=== PATIENT | male | born 1945 | race Caucasian/White ===

== ENCOUNTER 2018-03-25 19:56 | Inpatient (IN) | payer MEDICARE ==
--- NOTE | 2018-03-25 20:47 | ED Physician Chart ---
ED Chief Complaint/HPI - Patient Information Date Seen:: 03/25/18 Time Seen:: 20:46 Chief Complaint:: Increased agitation History of Present Illness:: 73 yo male was brought from SNF to ER for evaluation of increased agitation and aggressive behavior. Patient has wheezing for unknown duration. ED Review of Systems - Review of Systems General/Constitutional: No fever Skin: No skin lesions Head: No headache Eyes: No pain ENT: No nasal drainage Neck: No neck pain Cardio Vascular: No chest pain Pulmonary: Wheezing GI: No nausea, No vomiting Musculoskeletal: No bone or joint pain Psychiatric: Prior psych history Neurological: No focal symptoms ED Past Medical History - Past Medical History Past Medical History: DM, Asthma/COPD Social History: Smoker, No Alcohol, No Drug Use Surgical History: None Psychiatricy History: Schizophrenia (paranoid type), Bipolar Family Medical History - Family Member Mother History Unknown: Yes ED Physical Exam - Physical Examination General/Constitutional: Awake Head: Atraumatic Eyes: PERRL Skin: No skin lesions ENMT: Nasal exam nl Neck: No nuchal rigidity Other Respiratory comments:: Mild wheeze bilateral lungs Cardio Vascular: RRR, No murmur, gallop, rubs, NL S1 S2 GI: No tenderness/rebounding/guarding Extremities: normal strength in all extremities Neuro/Psych: Alert/oriented ED Labs/Radiology/EKG Results - Lab Results Results: Laboratory Last Values WBC 6.6 Th/cmm (4.8-10.8) 03/25/18 21: RBC 4.74 Mil/cmm (3.80-5.80) 03/25/18 21: Hgb 14.4 gm/dL (12-16) 03/25/18 21: Hct 43.7 % (41.0-60) 03/25/18 21:01 MCV 92.0 fl (80-99) 03/25/18 21: MCH 30.3 pg (27.0-31.0) 03/25/18 21: MCHC Differential 33.0 pg (28.0-36.0) 03/25/18 21: RDW 13.9 % (11.5-20.0) 03/25/18 21: Plt Count 183 Th/cmm (150-400) 03/25/18 21:01 MPV 8.6 fl 03/25/18 21:01 Neutrophils % 41.8 % (40.0-80.0) 03/25/18 21:01 Lymphocytes % 42.3 % (20.0-50.0) 03/25/18 21: Monocytes % 10.4 % (2.0-10.0) H 03/25/18 21: Eosinophils % 4.8 % (0.0-5.0) 03/25/18 21: Basophils % 0.7 % (0.0-2.0) 03/25/18 21:01 Sodium 138 mEq/L (136-145) 03/25/18 21:01 Potassium 4.2 mEq/L (3.5-5.1) 03/25/18 21: Chloride 100 mEq/L (98-107) 03/25/18 21:01 Carbon Dioxide 32.4 mEq/L (21.0-31.0) H 03/25/18 21:01 Anion Gap 9.8 (7.0-16.0) 03/25/18 21:01 BUN 17 mg/dL (7-25) 03/25/18 21:01 Creatinine 0.8 mg/dL (0.7-1.3) 03/25/18 21:01 Est GFR ( Amer) TNP 03/25/18 21:01 Est GFR (Non-Af Amer) TNP 03/25/18 21:01 BUN/Creatinine Ratio 21.3 03/25/18 21:01 Glucose 120 mg/dL (70-105) H 03/25/18 21:01 Calcium 9.1 mg/dL (8.6-10.3) 03/25/18 21:01 Total Bilirubin 0.3 mg/dL (0.3-1.0) 03/25/18 21:01 AST 15 U/L (13-39) 03/25/18 21:01 ALT 7 U/L (7-52) 03/25/18 21:01 Alkaline Phosphatase 224 U/L (34-104) H 03/25/18 21:01 Troponin I < 0.01 ng/mL (0.01-0.05) L 03/25/18 21:01 B-Natriuretic Peptide 6.4 pg/mL (5.0-100.0) 03/25/18 21:01 Total Protein 6.7 gm/dL (6.0-8.3) 03/25/18 21: Albumin 3.9 gm/dL (4.2-5.5) L 03/25/18 21: Globulin 2.8 gm/dL 03/25/18 21:01 Albumin/Globulin Ratio 1.4 (1.0-1.8) 03/25/18 21:01 Triglycerides 295 mg/dL (<150) H 03/25/18 21:01 Cholesterol 200 mg/dL (<200) 03/25/18 21:01 LDL Cholesterol Direct 146 mg/dL (75-193) 03/25/18 21: HDL Cholesterol 39 mg/dL (23-92) 03/25/18 21: TSH 2.10 uIU/ml (0.34-5.60) 03/25/18 21:01 - Radiology Results Results: CXR: mild increase of bibasilar lung markings, chronic ED Assessment - Assessment General Assessment: Hypertension Asthma Bipolar Schizophrenia Psychosis Assessment/Comments:: CBC, CMP, UA CXR, EKG DuoNeb Admit to [facility] for further evaluation and management ED Septic Shock - . Is Septic Shock (SBP<90, OR Lactate>4 mmol\L) present?: No ED Reassessment (Disposition) - Reassessment Reassessment Condition:: Improved - Patient Disposition Discharge/Transfer:: [facility] w/in this hosp
[2018-03-25 21:10] LABS: % BASOPHILS 0.7 % (0.0-2.0); % EOSINOPHILS 4.8 % (0.0-5.0); % LYMPHOCYTES 42.3 % (20.0-50.0); % MONOCYTES 10.4 % (2.0-10.0); % NEUTROPHILS 41.8 % (40.0-80.0); EOSINOPHILE ABSOLUTE 0.3 Th/cmm (0.1-0.4); HEMATOCRIT 43.7 % (41.0-60); HEMOGLOBIN 14.4 gm/dL (12-16); LYMPHOCYTE ABSOLUTE 2.8 Th/cmm (1.5-3.0); MEAN CORPUSCULAR HEMOGLOBIN 30.3 pg (27.0-31.0); MEAN PLATELET VOLUME 8.6 fl; MONOCYTE ABSOLUTE 0.7 Th/cmm (0.3-1.0); NEUTROPHILE ABSOLUTE 2.8 Th/cmm (1.8-8.0); PLATELET COUNT 183 Th/cmm (150-400); RED BLOOD COUNT 4.74 Mil/cmm (3.80-5.80); RED CELL DISTRIBUTION WIDTH 13.9 % (11.5-20.0); WHITE BLOOD COUNT 6.6 Th/cmm (4.8-10.8)
[2018-03-25 21:28] LABS: ALB/GLOB RATIO 1.4 (1.0-1.8); ALBUMIN 3.9 gm/dL (4.2-5.5); ALKALINE PHOSPHATASE 224 U/L (34-104); ANION GAP 9.8 (7.0-16.0); BILIRUBIN,TOTAL 0.3 mg/dL (0.3-1.0); BUN - UREA NITROGEN 17 mg/dL (7-25); CALCIUM SERUM 9.1 mg/dL (8.6-10.3); CARBON DIOXIDE 32.4 mEq/L (21.0-31.0); CHLORIDE 100 mEq/L (98-107); CHOLESTEROL 200 mg/dL (<200); CREATININE - SERUM 0.8 mg/dL (0.7-1.3); GLUCOSE 120 mg/dL (70-105); HDL -HIGH DENSITY LIPOPROTEIN 39 mg/dL (23-92); POTASSIUM SERUM 4.2 mEq/L (3.5-5.1); SGOT 15 U/L (13-39); SGPT/ALT 7 U/L (7-52); SODIUM SERUM 138 mEq/L (136-145); TOTAL PROTEIN,SERUM 6.7 gm/dL (6.0-8.3); TRIGLYCERIDES 295 mg/dL (<150)
[2018-03-25] MEDS ORDERED: Albuterol/Ipratropium Neb 3 ML AERS HHN ONE ×2 (21:47→21:59)
[2018-03-25 23:29] LABS: URINE SOURCE MIDSTREAM
[2018-03-25 23:38] LABS: URINE BILIRUBIN NEGATIVE (NEGATIVE); URINE BLOOD NEGATIVE (NEGATIVE); URINE GLUCOSE (UA) NEGATIVE (NEGATIVE); URINE KETONE NEGATIVE (NEGATIVE); URINE LEUKOCYTE ESTERASE NEGATIVE (NEGATIVE); URINE NITRATE NEGATIVE (NEGATIVE); URINE PROTEIN NEGATIVE (NEGATIVE); URINE UROBILINOGEN 0.2 E.U./dL (0.2 - 1.0)
[2018-03-25 23:50] LABS: URINE CLARITY CLEAR (CLEAR); URINE COLOR YELLOW; URINE MICROSCOPIC INDICATED? NO
[2018-03-26 00:27] VITALS: BP 149/91
[2018-03-26] MEDS ORDERED: Magnesium Hydroxide (MOM) 30 mL UDC PO PRN (00:27)
[2018-03-26 01:39] LABS: CHOLESTEROL 203 mg/dL (<200); HDL -HIGH DENSITY LIPOPROTEIN 42 mg/dL (23-92); TRIGLYCERIDES 291 mg/dL (<150)
[2018-03-26] MEDS: Multivitamin Tab PO SCH (08:46)
--- NOTE | 2018-03-26 08:50 | Diagnostic Imaging Report ---
CHEST X-RAY: AP view INDICATION: Shortness of breath COMPARISON: None FINDINGS: There is no focal consolidation or pleural effusions. Mild increased bibasal interstitial lung markings are noted. Heart size is normal. There is atherosclerosis of the aortic arch. Degenerative changes of the spine are noted. IMPRESSION: Mild increased bibasilar interstitial lung markings. These are probably due to atelectatic changes or chronic changes. No focal consolidation identified. There may be underlying COPD. Atherosclerosis of the aortic arch noted.
[2018-03-26] MEDS: Albuterol Nebulizer 2.5mg/3mL HHN PRN (21:07)
[2018-03-26] MEDS: Maalox 30 mL Cup PO PRN (22:48)
[2018-03-26] MEDS: Albuterol Nebulizer 2.5mg/3mL HHN SCH (23:33)
[2018-03-27] MEDS: Albuterol Nebulizer 2.5mg/3mL HHN SCH ×6 (02:00→22:00)
--- NOTE | 2018-03-27 05:33 | Psychiatric Evaluation ---
DATE OF SERVICE: 03/25/2018 PSYCHIATRIC INITIAL EVALUATION AND MENTAL STATUS EXAM PATIENT'S AGE: 73-year-old. SEX: Male. PHYSICIAN: Dr. Jones. CHIEF COMPLAINT: Agitation and confusion. HISTORY OF PRESENT ILLNESS: The patient is a 73-year-old male who was [facility] because of increased agitation and because of confusion and difficulty following directions. The patient was in [facility] because the patient has been getting severely anxious easily. The patient also has been complaining of any little noise that has been bothering him. Even the patient is complaining of dripping of water and that was bothering him. PAST PSYCHIATRIC HISTORY: The patient has been taking Zyprexa but not effective. PAST MEDICAL HISTORY: The patient has history of COPD, epilepsy, diabetes mellitus type 2 and hypertension. ALLERGIES: HALDOL. MENTAL STATUS EXAMINATION: The patient appears his stated age. Currently cooperative. Anxious. Sad affect. In a depressed mood. Confused. Easily agitated. The patient denies any auditory or visual hallucinations, but seems to be delusional and paranoid. The patient denies any suicidal or homicidal ideations. The patient is alert and oriented to time, but not place or date or person. Impaired immediate memory but intact remote and recent memories. Poor insight and poor judgment. ASSESSMENT: PRIMARY DIAGNOSIS: Unspecified psychosis. SECONDARY DIAGNOSIS: Rule out mild dementia. TREATMENT PLAN: We will monitor the patient's behavior closely. We will start individual as well as milieu psychotherapy. We will also start the patient on Seroquel and Depakote and we will discontinue Zyprexa. ESTIMATED LENGTH OF STAY: 5-7 days. THE PATIENT'S STRENGTHS AND WEAKNESSES: The patient's strength is not clear at this time. Weaknesses are ineffective coping. AFTER DISCHARGE PLAN: Outpatient treatment and followup will continue as an outpatient. CRITERIA FOR DISCHARGE: The patient will not be suicidal and will stabilize psychotropic medications and will establish outpatient treatment plans. JOB# [id number]
[2018-03-27] MEDS: Multivitamin Tab PO SCH (09:25)
--- NOTE | 2018-03-27 21:06 | History & Physical ---
ADMIT DATE: 03/26/2018 CHIEF COMPLAINT: Agitation. HISTORY OF PRESENT ILLNESS: This is a 73-year-old male admitted to the [facility] due to agitation and aggressive behavior towards nursing staff at the alf. PAST MEDICAL HISTORY: Diabetes, asthma, COPD. SOCIAL HISTORY: The patient is a alf resident, requiring 24-hour nursing care. SURGICAL HISTORY: Unknown. ALLERGIES: CLONAZEPAM, HALOPERIDOL. MEDICATIONS: Please see medication list. REVIEW OF SYSTEMS: GENERAL: Denies any fevers or chills. CARDIOVASCULAR: Denies chest pain. RESPIRATORY: Denies shortness of breath. GASTROINTESTINAL: Denies nausea, vomiting, abdominal pain. GENITOURINARY: Denies increased frequency or dysuria. NEUROLOGIC: No headache, seizures or syncope. All systems are reviewed and negative. PHYSICAL EXAMINATION: GENERAL: The patient is well-developed, well-nourished, no apparent distress. VITAL SIGNS: Temperature 98.2, heart rate 108, blood pressure 126/95, respiration 18, O2 90-96%. HEAD: Normocephalic, atraumatic. NECK: Supple. No mass. LUNGS: Clear bilaterally. HEART: Regular rhythm. ABDOMEN: Soft, nontender. LABORATORY DATA: WBC 6.6, H and H 14.4 and 43.7, platelet 183. Sodium 138, potassium 4.2, chloride 100, BUN 17, creatinine 0.8. ASSESSMENT: Diabetes, asthma, chronic obstructive pulmonary disease, aggressive behavior, schizophrenia, bipolar. PLAN: Supplemental oxygen as needed. Monitor glucose. Monitor signs and symptoms of hypo or hyperglycemia. We will continue to monitor this patient. JOB# [id number]
[2018-03-27] MEDS: Albuterol Nebulizer 2.5mg/3mL HHN PRN (22:25)
[2018-03-28] MEDS: Albuterol Nebulizer 2.5mg/3mL HHN SCH ×6 (03:15→21:59)
[2018-03-28] MEDS: Multivitamin Tab PO SCH (08:39)
[2018-03-28] MEDS: Fluticasone Propionate Nasal 1 SPR SPR NS SCH (08:39)
--- NOTE | 2018-03-28 17:02 | Internal Medicine Prog Note ---
Internal Medicine Subjective - Subjective Patient seen and examined:: chart reviewed Patient is:: awake, confused Per staff patient has:: no adverse event Internal Medicine Objective - Results Result Diagrams: 03/25/18 21:01 03/25/18 21: Recent Labs: Laboratory Last Values WBC 6.6 Th/cmm (4.8-10.8) 03/25/18 21: RBC 4.74 Mil/cmm (3.80-5.80) 03/25/18 21: Hgb 14.4 gm/dL (12-16) 03/25/18 21: Hct 43.7 % (41.0-60) 03/25/18 21: MCV 92.0 fl (80-99) 03/25/18 21: MCH 30.3 pg (27.0-31.0) 03/25/18 21: MCHC Differential 33.0 pg (28.0-36.0) 03/25/18 21: RDW 13.9 % (11.5-20.0) 03/25/18 21: Plt Count 183 Th/cmm (150-400) 03/25/18 21:01 MPV 8.6 fl 03/25/18 21:01 Neutrophils % 41.8 % (40.0-80.0) 03/25/18 21: Lymphocytes % 42.3 % (20.0-50.0) 03/25/18 21: Monocytes % 10.4 % (2.0-10.0) H 03/25/18 21: Eosinophils % 4.8 % (0.0-5.0) 03/25/18 21: Basophils % 0.7 % (0.0-2.0) 03/25/18 21: Sodium 138 mEq/L (136-145) 03/25/18 21: Potassium 4.2 mEq/L (3.5-5.1) 03/25/18 21: Chloride 100 mEq/L (98-107) 03/25/18 21: Carbon Dioxide 32.4 mEq/L (21.0-31.0) H 03/25/18 21: Anion Gap 9.8 (7.0-16.0) 03/25/18 21: BUN 17 mg/dL (7-25) 03/25/18 21:01 Creatinine 0.8 mg/dL (0.7-1.3) 03/25/18 21:01 Est GFR ( Amer) TNP 03/25/18 21:01 Est GFR (Non-Af Amer) TNP 03/25/18 21:01 BUN/Creatinine Ratio 21.3 03/25/18 21:01 Glucose 120 mg/dL (70-105) H 03/25/18 21:01 POC Glucose 94 MG/DL (70 - 105) 03/27/18 06:43 Calcium 9.1 mg/dL (8.6-10.3) 03/25/18 21:01 Total Bilirubin 0.3 mg/dL (0.3-1.0) 03/25/18 21:01 AST 15 U/L (13-39) 03/25/18 21:01 ALT 7 U/L (7-52) 03/25/18 21:01 Alkaline Phosphatase 224 U/L (34-104) H 03/25/18 21:01 Troponin I < 0.01 ng/mL (0.01-0.05) L 03/25/18 21:01 B-Natriuretic Peptide 6.4 pg/mL (5.0-100.0) 03/25/18 21:01 Total Protein 6.7 gm/dL (6.0-8.3) 03/25/18 21:01 Albumin 3.9 gm/dL (4.2-5.5) L 03/25/18 21:01 Globulin 2.8 gm/dL 03/25/18 21:01 Albumin/Globulin Ratio 1.4 (1.0-1.8) 03/25/18 21:01 Triglycerides 291 mg/dL (<150) H 03/25/18 21:01 Cholesterol 203 mg/dL (<200) H 03/25/18 21:01 LDL Cholesterol Direct 149 mg/dL (75-193) 03/25/18 21:01 HDL Cholesterol 42 mg/dL (23-92) 03/25/18 21:01 TSH 2.10 uIU/ml (0.34-5.60) 03/25/18 21:01 Urine Source MIDSTREAM 03/25/18 23:00 Urine Color YELLOW 03/25/18 23:00 Urine Clarity CLEAR (CLEAR) 03/25/18 23:00 Urine pH 6.0 (4.6 - 8.0) 03/25/18 23:00 Ur Specific [place] 1.015 (1.005-1.030) 03/25/18 23:00 Urine Protein NEGATIVE mg/dL (NEGATIVE) 03/25/18 23:00 Urine Glucose (UA) NEGATIVE mg/dL (NEGATIVE) 03/25/18 23:00 Urine Ketones NEGATIVE mg/dL (NEGATIVE) 03/25/18 23:00 Urine Blood NEGATIVE (NEGATIVE) 03/25/18 23:00 Urine Nitrate NEGATIVE (NEGATIVE) 03/25/18 23:00 Urine Bilirubin NEGATIVE (NEGATIVE) 03/25/18 23:00 Urine Urobilinogen 0.2 E.U./dL (0.2 - 1.0) 03/25/18 23:00 Ur Leukocyte Esterase NEGATIVE (NEGATIVE) 03/25/18 23:00 Valproic Acid 53.7 ug/mL (50.0-100.0) 03/26/18 07:40 - Physical Exam Vitals and I&O: Vital Signs Temp 97.4 F 03/28/18 14:00 Pulse 101 03/28/18 15:51 Resp 20 03/28/18 15:51 BP 120/65 03/28/18 14:00 Pulse Ox 94 03/28/18 15:51 Intake & Output 03/27/18 03/28/18 03/28/18 18:59 06:59 18:59 Intake Total 1000 360 Balance 1000 360 Intake: Oral 1000 360 Other: # Voids 3 1 # Bowel Movements 1 Stool Characteristics Formed Brown Active Medications: Current Medications Acetaminophen (Tylenol) 650 mg PO Q4HR PRN PRN Reason: Mild Pain / Temp above 100 Stop: 05/25/18 00:26 Al Hydrox/Mg Hydrox/Simethicone (Maalox) 30 ml PO Q4HR PRN PRN Reason: GI DISTRESS Stop: 05/25/18 00:26 Last Admin: 03/26/18 22:48 Dose: 30 ml Albuterol Sulfate (Albuterol 2.5mg/3ml Neb Ud) 2.5 mg HHN Q4HRT OMARI Stop: 05/25/18 22:59 Last Admin: 03/28/18 15:51 Dose: 2.5 mg Albuterol Sulfate (Albuterol 2.5mg/3ml Neb Ud) 2.5 mg HHN Q6H PRN PRN Reason: SOB,Wheezing Stop: 05/25/18 20:54 Last Admin: 03/27/18 22:25 Dose: 2.5 mg Carbidopa/Levodopa (Sinemet 25mg-100 Mg) 1 tab PO BID OMARI Stop: 05/26/18 08:59 Last Admin: 03/28/18 08:39 Dose: 1 tab Divalproex Sodium (Depakote Dr) 500 mg PO BID OMARI; Protocol Stop: 05/25/18 08:59 Last Admin: 03/28/18 08:39 Dose: 500 mg Fluticasone Propionate (Flonase) 1 spr NS DAILY OMARI Stop: 05/27/18 08:59 Last Admin: 03/28/18 08:39 Dose: 1 spr Lorazepam (Ativan) 0.5 mg PO Q4H PRN; Protocol PRN Reason: Anxiety Stop: 05/25/18 00:26 Last Admin: 03/27/18 14:57 Dose: 0.5 mg Magnesium Hydroxide (Milk Of Magnesia) 30 ml PO HS PRN PRN Reason: Constipation Multivitamins/Vitamin C (Theragran) 1 tab PO DAILY OMARI Stop: 05/25/18 08:59 Last Admin: 03/28/18 08:39 Dose: 1 tab Quetiapine Fumarate (Seroquel) 25 mg PO TID OMARI; Protocol Stop: 05/25/18 08:59 Last Admin: 03/28/18 15:43 Dose: 25 mg Zolpidem Tartrate (Ambien) 5 mg PO HS PRN PRN Reason: Insomnia Stop: 05/25/18 00:26 Last Admin: 03/27/18 21:09 Dose: 5 mg General: demented HEENT: NC/AT Neck: Supple Lungs: CTAB Cardiovascular: RRR, Normal S1, Normal S2 Abdomen: soft, non-tender Extremities: clear Neurological: no change Internal Medicine Assmt/Plan - Assessment Assessment: psychosis htn dm copd seizure parkinson's disease - Plan Plan: as per psych will monitor Nutritional Asmnt/Malnutr-PDOC - Dietary Evaluation Malnutrition Findings (Please click <Entered> for more info): Nutritional Asmnt/Malnutrition Start: 03/28/18 14: 26 Text: Status: Complete Freq: Protocol: Document 03/28/18 14:26 [email or web address] (Rec: 03/28/18 14:31 [email or web address]) Nutritional Asmnt/Malnutrition Patient General Information Nutritional Screening Moderate Risk Diagnosis psychosis nos Pertinent Medical Hx/Surgical Hx DM, asthma, COPD, schizophrenia, bipolar Subjective Information Pt was seen eating in dining room at time of visit. Pt was alert but confused. PO intake is 100% per EMR. Current Diet Order/ Nutrition Support low sodium (2gm), CCHO Pertinent Medications maalox, theragran, seroquel, ambien Pertinent Labs 03/25 glucose 120, alb 3.9, triglycerides 291, cholesterol 203 Nutritional Hx/Data Height 1.73 m Height (Calculated Centimeters) 172.7 Current Weight (lbs) 91.172 kg Weight (Calculated Kilograms) 91.2 Weight (Calculated Grams) 00665.1 [place] Body Weight 154 Body Mass Index (BMI) 30.5 Weight Status Obese GI Symptoms GI Symptoms None Last BM 03/27 Difficult in: None Food Allergies No Skin Integrity/Comment: ludivina carlin 21 Current %PO Good (75-100%) Estimated Nutritional Goals BEE in Kcals: Adj wt of IBW Calories/Kcals/Kg 25-30 Kcals Calculated 8011-5285 Protein: Adj wt of IBW Protein g/k.8-1 Protein Calculated 60-75 Fluid: ml 7035-8518 (1ml/kcal) Nutritional Problem No current Nutrition Prob Problem N/A Intervention/Recommendation Comments 1. Continue with low sodium ( 2gm) CCHO diet as ordered. 2. Monitor PO intake, wt, labs and skin integrity 3. F/U as low risk in 7 days Expected Outcomes/Goals Expected Outcomes/Goals 1. PO intake to meet at least 75% of nutritional needs. 2. Wt stability, skin to remain intact, labs to approach WNL. Reviewed by Amanda Gloria RD
[2018-03-29] MEDS: Albuterol Nebulizer 2.5mg/3mL HHN SCH ×6 (02:08→23:20)
[2018-03-29] MEDS: Fluticasone Propionate Nasal 1 SPR SPR NS SCH (08:36)
[2018-03-29] MEDS: Multivitamin Tab PO SCH (08:36)
[2018-03-29] MEDS: Maalox 30 mL Cup PO PRN (16:50)
--- NOTE | 2018-03-29 17:58 | Progress Notes ---
DATE: 03/29/2018 SUBJECTIVE: A 73-year-old male admitted to the [facility] with increased agitation and confusion, difficulty following directions. The patient was in [place]. He had been getting very anxious, aggressive. On [id number], the patient is a poor historian, not really able to answer basic questions at this time. Per nursing staff, A and O x 2, episodes of worsening confusion. He remains impulsive, unpredictable, mostly keeps to himself, withdrawn, needing high level of prompting, redirection, fair sleep. ASSESSMENT: The patient remains impulsive, unpredictable, mostly keeps to self. Currently on dosing of Seroquel. We will continue to monitor. Also on Depakote dosing as well. Given ongoing symptoms, the patient is not safe for a lower level of care. He is alert and oriented to the year and the month only. He does not know where he is or what is going on. He states that when he leaves, he would like to go back to a board and care. [facility]# [id number]
--- NOTE | 2018-03-29 21:15 | Progress Notes ---
DATE: 03/29/2018 SUBJECTIVE: The patient was seen in the dining area. The patient appears to be guarded, easily gets frustrated, and confused. The patient also has difficulty following instructions and directions. Otherwise, the patient appears to be in no acute distress. OBJECTIVE: VITAL SIGNS: Temperature 99, heart rate 88, blood pressure 127/80, respirations 20, and 93% on room air. HEENT: Head is atraumatic and normocephalic. Eyes: Bilateral conjunctivae are clear. Bilateral pupils are equally round and reactive. NECK: Supple. No JVD. CARDIOVASCULAR: S1 and S2, without murmur. PULMONARY: Clear to auscultation. GASTROINTESTINAL: Soft and nontender without guarding. Positive bowel sounds. MUSCULOSKELETAL: No clubbing. No cyanosis noted. ASSESSMENT: 1. Psychosis. 2. Hypertension. 3. Diabetes. 4. Chronic obstructive pulmonary disease. 5. Seizure. 6. Parkinson's disease. PLAN: We will keep the patient inpatient psychiatric unit. We will follow up with a psychiatrist to monitor the patient's condition and behavior. Treatment plans discussed with the patient's nurse. Treatment plans discussed with Dr. Munroe. JOB# [id number]
[2018-03-30] MEDS: Albuterol Nebulizer 2.5mg/3mL HHN SCH ×6 (03:50→22:20)
[2018-03-30] MEDS: Multivitamin Tab PO SCH (08:47)
[2018-03-30] MEDS: Fluticasone Propionate Nasal 1 SPR SPR NS SCH (08:48)
--- NOTE | 2018-03-30 13:00 | Internal Medicine Prog Note ---
Internal Medicine Subjective - Subjective Patient seen and examined:: without staff, chart reviewed Patient is:: awake, verbal, confused Per staff patient has:: no adverse event Internal Medicine Objective - Results Result Diagrams: 03/25/18 21:03/25/18 21: Recent Labs: Laboratory Last Values WBC 6.6 Th/cmm (4.8-10.8) 03/25/18 21: RBC 4.74 Mil/cmm (3.80-5.80) 03/25/18 21: Hgb 14.4 gm/dL (12-16) 03/25/18 21: Hct 43.7 % (41.0-60) 03/25/18 21: MCV 92.0 fl (80-99) 03/25/18 21: MCH 30.3 pg (27.0-31.0) 03/25/18 21: MCHC Differential 33.0 pg (28.0-36.0) 03/25/18 21: RDW 13.9 % (11.5-20.0) 03/25/18 21: Plt Count 183 Th/cmm (150-400) 03/25/18 21:01 MPV 8.6 fl 03/25/18 21: Neutrophils % 41.8 % (40.0-80.0) 03/25/18 21: Lymphocytes % 42.3 % (20.0-50.0) 03/25/18 21: Monocytes % 10.4 % (2.0-10.0) H 03/25/18 21: Eosinophils % 4.8 % (0.0-5.0) 03/25/18 21: Basophils % 0.7 % (0.0-2.0) 03/25/18 21:01 Sodium 138 mEq/L (136-145) 03/25/18 21: Potassium 4.2 mEq/L (3.5-5.1) 03/25/18 21: Chloride 100 mEq/L (98-107) 03/25/18 21:01 Carbon Dioxide 32.4 mEq/L (21.0-31.0) H 03/25/18 21:01 Anion Gap 9.8 (7.0-16.0) 03/25/18 21: BUN 17 mg/dL (7-25) 03/25/18 21:01 Creatinine 0.8 mg/dL (0.7-1.3) 03/25/18 21:01 Est GFR ( Amer) TNP 03/25/18 21:01 Est GFR (Non-Af Amer) TNP 03/25/18 21:01 BUN/Creatinine Ratio 21.3 03/25/18 21:01 Glucose 120 mg/dL (70-105) H 03/25/18 21:01 POC Glucose 94 MG/DL (70 - 105) 03/27/18 06:43 Calcium 9.1 mg/dL (8.6-10.3) 03/25/18 21:01 Total Bilirubin 0.3 mg/dL (0.3-1.0) 03/25/18 21:01 AST 15 U/L (13-39) 03/25/18 21:01 ALT 7 U/L (7-52) 03/25/18 21:01 Alkaline Phosphatase 224 U/L (34-104) H 03/25/18 21:01 Troponin I < 0.01 ng/mL (0.01-0.05) L 03/25/18 21:01 B-Natriuretic Peptide 6.4 pg/mL (5.0-100.0) 03/25/18 21: Total Protein 6.7 gm/dL (6.0-8.3) 03/25/18 21:01 Albumin 3.9 gm/dL (4.2-5.5) L 03/25/18 21: Globulin 2.8 gm/dL 03/25/18 21: Albumin/Globulin Ratio 1.4 (1.0-1.8) 03/25/18 21:01 Triglycerides 291 mg/dL (<150) H 03/25/18 21:01 Cholesterol 203 mg/dL (<200) H 03/25/18 21:01 LDL Cholesterol Direct 149 mg/dL (75-193) 03/25/18 21:01 HDL Cholesterol 42 mg/dL (23-92) 03/25/18 21:01 TSH 2.10 uIU/ml (0.34-5.60) 03/25/18 21:01 Urine Source MIDSTREAM 03/25/18 23:00 Urine Color YELLOW 03/25/18 23:00 Urine Clarity CLEAR (CLEAR) 03/25/18 23:00 Urine pH 6.0 (4.6 - 8.0) 03/25/18 23:00 Ur Specific [place] 1.015 (1.005-1.030) 03/25/18 23:00 Urine Protein NEGATIVE mg/dL (NEGATIVE) 03/25/18 23:00 Urine Glucose (UA) NEGATIVE mg/dL (NEGATIVE) 03/25/18 23:00 Urine Ketones NEGATIVE mg/dL (NEGATIVE) 03/25/18 23:00 Urine Blood NEGATIVE (NEGATIVE) 03/25/18 23:00 Urine Nitrate NEGATIVE (NEGATIVE) 03/25/18 23:00 Urine Bilirubin NEGATIVE (NEGATIVE) 03/25/18 23:00 Urine Urobilinogen 0.2 E.U./dL (0.2 - 1.0) 03/25/18 23:00 Ur Leukocyte Esterase NEGATIVE (NEGATIVE) 03/25/18 23:00 Valproic Acid 53.7 ug/mL (50.0-100.0) 03/26/18 07:40 - Physical Exam Vitals and I&O: Vital Signs Temp 97.1 F 03/30/18 05:55 Pulse 110 03/30/18 10:38 Resp 16 03/30/18 10:38 BP 125/75 03/30/18 05:55 Pulse Ox 95 03/30/18 10:38 Intake & Output 03/29/18 03/30/18 03/30/18 18:59 06:59 18:59 Intake Total 1000 120 Balance 1000 120 Intake: Oral 1000 120 Other: # Voids 4 3 # Bowel Movements 0 Stool Characteristics Formed Formed Brown Brown Active Medications: Current Medications Acetaminophen (Tylenol) 650 mg PO Q4HR PRN PRN Reason: Mild Pain / Temp above 100 Stop: 05/25/18 00:26 Last Admin: 03/29/18 16:49 Dose: 650 mg Al Hydrox/Mg Hydrox/Simethicone (Maalox) 30 ml PO Q4HR PRN PRN Reason: GI DISTRESS Stop: 05/25/18 00:26 Last Admin: 03/29/18 16:50 Dose: 30 ml Albuterol Sulfate (Albuterol 2.5mg/3ml Neb Ud) 2.5 mg HHN Q4HRT OMARI Stop: 05/25/18 22:59 Last Admin: 03/30/18 10:37 Dose: 2.5 mg Albuterol Sulfate (Albuterol 2.5mg/3ml Neb Ud) 2.5 mg HHN Q6H PRN PRN Reason: SOB,Wheezing Stop: 05/25/18 20:54 Last Admin: 03/27/18 22:25 Dose: 2.5 mg Carbidopa/Levodopa (Sinemet 25mg-100 Mg) 1 tab PO BID OMARI Stop: 05/26/18 08:59 Last Admin: 03/30/18 08:47 Dose: 1 tab Divalproex Sodium (Depakote Dr) 500 mg PO BID OMARI; Protocol Stop: 05/25/18 08:59 Last Admin: 03/30/18 08:48 Dose: 500 mg Fluticasone Propionate (Flonase) 1 spr NS DAILY OMARI Stop: 05/27/18 08:59 Last Admin: 03/30/18 08:48 Dose: 1 spr Lorazepam (Ativan) 0.5 mg PO Q4H PRN; Protocol PRN Reason: Anxiety Stop: 05/25/18 00:26 Last Admin: 03/29/18 03:20 Dose: 0.5 mg Magnesium Hydroxide (Milk Of Magnesia) 30 ml PO HS PRN PRN Reason: Constipation Multivitamins/Vitamin C (Theragran) 1 tab PO DAILY OMARI Stop: 05/25/18 08:59 Last Admin: 03/30/18 08:47 Dose: 1 tab Quetiapine Fumarate (Seroquel) 25 mg PO TID OMARI; Protocol Stop: 05/25/18 08:59 Last Admin: 03/30/18 08:47 Dose: 25 mg Zolpidem Tartrate (Ambien) 5 mg PO HS PRN PRN Reason: Insomnia Stop: 05/25/18 00:26 Last Admin: 03/29/18 21:09 Dose: 5 mg General: demented HEENT: NC/AT Neck: Supple Lungs: CTAB Cardiovascular: RRR, Normal S1, Normal S2 Abdomen: soft, non-tender Extremities: clear Neurological: no change Internal Medicine Assmt/Plan - Assessment Assessment: psychosis htn dm copd seizure parkinson's disease - Plan Plan: as per psych will monitor Nutritional Asmnt/Malnutr-PDOC - Dietary Evaluation Malnutrition Findings (Please click <Entered> for more info): Nutritional Asmnt/Malnutrition Start: 03/28/18 14: 26 Text: Status: Complete Freq: Protocol: Document 03/28/18 14:26 [email or web address] (Rec: 03/28/18 14:31 [email or web address]) Nutritional Asmnt/Malnutrition Patient General Information Nutritional Screening Moderate Risk Diagnosis psychosis nos Pertinent Medical Hx/Surgical Hx DM, asthma, COPD, schizophrenia, bipolar Subjective Information Pt was seen eating in dining room at time of visit. Pt was alert but confused. PO intake is 100% per EMR. Current Diet Order/ Nutrition Support low sodium (2gm), CCHO Pertinent Medications maalox, theragran, seroquel, ambien Pertinent Labs 03/25 glucose 120, alb 3.9, triglycerides 291, cholesterol 203 Nutritional Hx/Data Height 1.73 m Height (Calculated Centimeters) 172.7 Current Weight (lbs) 91.172 kg Weight (Calculated Kilograms) 91.2 Weight (Calculated Grams) 57050.1 [place] Body Weight 154 Body Mass Index (BMI) 30.5 Weight Status Obese GI Symptoms GI Symptoms None Last BM 03/27 Difficult in: None Food Allergies No Skin Integrity/Comment: intact, ludivina 21 Current %PO Good (75-100%) Estimated Nutritional Goals BEE in Kcals: Adj wt of IBW Calories/Kcals/Kg 25-30 Kcals Calculated 0935-0162 Protein: Adj wt of IBW Protein g/k.8-1 Protein Calculated 60-75 Fluid: ml 0807-2097 (1ml/kcal) Nutritional Problem No current Nutrition Prob Problem N/A Intervention/Recommendation Comments 1. Continue with low sodium ( 2gm) CCHO diet as ordered. 2. Monitor PO intake, wt, labs and skin integrity 3. F/U as low risk in 7 days Expected Outcomes/Goals Expected Outcomes/Goals 1. PO intake to meet at least 75% of nutritional needs. 2. Wt stability, skin to remain intact, labs to approach WNL. Reviewed by Amanda Gloria RD
--- NOTE | 2018-03-30 16:21 | Progress Notes ---
DATE: 03/30/2018 The patient was admitted to the unit, agitation, confusion, difficulty following directions. The patient is calm at this time. Slept about 6 hours. Poorly oriented, remains impulsive, unpredictable, mostly withdrawn, keeps to himself, wandering throughout the units. He does get breathing treatments, able to verbalize some basic needs. ASSESSMENT: The patient remains symptomatic. Ongoing safety concerns, concerns or impulsivity, agitation, aggression, but he has been somewhat calmer, more redirectable on exam. PLAN: We will continue to monitor. MEDICATIONS: Noted and reviewed. We will continue Seroquel at current dosing. JOB# [id number]
[2018-03-30] MEDS: Maalox 30 mL Cup PO PRN (23:45)
[2018-03-31] MEDS: Albuterol Nebulizer 2.5mg/3mL HHN PRN (00:33)
--- NOTE | 2018-03-31 01:41 | Progress Notes ---
DATE: 03/27/2018 PSYCHIATRIC PROGRESS NOTE SUBJECTIVE: Chart reviewed and the patient interviewed. Also discussed the patient's condition with the staff and reviewed records and labs. The patient is still isolative and is still withdrawn. The patient also is still focused on his breathing and his difficulty with his breath. The patient also is interacting more with peers and with others. He also is still feeling hopeless at times. Also, the patient seems to be slightly calmer with decreased anger outburst. ASSESSMENT: The patient is still depressed and still need close monitoring. TREATMENT PLAN: We will continue to monitor behavior and condition closely. Also, continue adjusting psychotropic medications and work on behavior modification and ineffective coping. JOB# [id number]
--- NOTE | 2018-03-31 01:53 | Progress Notes ---
DATE: 03/28/2018 SUBJECTIVE: Chart reviewed and the patient interviewed. Also discussed the patient's condition with the staff and reviewed records and labs. The patient's affect is slightly brighter and he seems to be slightly less angry, but he is still withdrawn and he still has episodes of agitation and irritability. The patient also is still easily agitated. He also is still in a depressed mood. Otherwise, the patient is compliant with taking his medications with no side effects of medications. ASSESSMENT: The patient is still agitated and still depressed. TREATMENT PLAN: Continue to monitor behavior and condition closely. Also, continue to work on his anger and continue adjusting psychotropic medications and followup. JOB# [id number]
[2018-03-31] MEDS: Albuterol Nebulizer 2.5mg/3mL HHN SCH ×6 (02:34→23:53)
[2018-03-31] MEDS: Fluticasone Propionate Nasal 1 SPR SPR NS SCH (08:52)
[2018-03-31] MEDS: Multivitamin Tab PO SCH (08:52)
[2018-03-31] MEDS: Maalox 30 mL Cup PO PRN ×2 (10:52→20:34)
--- NOTE | 2018-03-31 15:08 | Internal Medicine Prog Note ---
Internal Medicine Subjective - Subjective Service Date: 03/31/18 Patient is:: awake, verbal, non-interactive, talking, agitated, confused, other (still angry and withdrawn, still having episodes of irritability and aggitation ,depressed mood.) Per staff patient has:: no adverse event, agitated, other (taking meds with no side affects) Internal Medicine Objective - Results Result Diagrams: 03/25/18 21:03/25/18 21: Recent Labs: Laboratory Last Values WBC 6.6 Th/cmm (4.8-10.8) 03/25/18 21: RBC 4.74 Mil/cmm (3.80-5.80) 03/25/18 21: Hgb 14.4 gm/dL (12-16) 03/25/18 21: Hct 43.7 % (41.0-60) 03/25/18 21: MCV 92.0 fl (80-99) 03/25/18 21: MCH 30.3 pg (27.0-31.0) 03/25/18 21: MCHC Differential 33.0 pg (28.0-36.0) 03/25/18 21: RDW 13.9 % (11.5-20.0) 03/25/18 21: Plt Count 183 Th/cmm (150-400) 03/25/18 21: MPV 8.6 fl 03/25/18 21: Neutrophils % 41.8 % (40.0-80.0) 03/25/18 21: Lymphocytes % 42.3 % (20.0-50.0) 03/25/18 21: Monocytes % 10.4 % (2.0-10.0) H 03/25/18 21: Eosinophils % 4.8 % (0.0-5.0) 03/25/18 21: Basophils % 0.7 % (0.0-2.0) 03/25/18 21: Sodium 138 mEq/L (136-145) 03/25/18 21: Potassium 4.2 mEq/L (3.5-5.1) 03/25/18 21: Chloride 100 mEq/L (98-107) 03/25/18 21: Carbon Dioxide 32.4 mEq/L (21.0-31.0) H 03/25/18 21:01 Anion Gap 9.8 (7.0-16.0) 03/25/18 21:01 BUN 17 mg/dL (7-25) 03/25/18 21:01 Creatinine 0.8 mg/dL (0.7-1.3) 03/25/18 21:01 Est GFR ( Amer) TNP 03/25/18 21:01 Est GFR (Non-Af Amer) TNP 03/25/18 21:01 BUN/Creatinine Ratio 21.3 03/25/18 21:01 Glucose 120 mg/dL (70-105) H 03/25/18 21: POC Glucose 94 MG/DL (70 - 105) 03/27/18 06:43 Calcium 9.1 mg/dL (8.6-10.3) 03/25/18 21: Total Bilirubin 0.3 mg/dL (0.3-1.0) 03/25/18 21:01 AST 15 U/L (13-39) 03/25/18 21: ALT 7 U/L (7-52) 03/25/18 21:01 Alkaline Phosphatase 224 U/L (34-104) H 03/25/18 21:01 Troponin I < 0.01 ng/mL (0.01-0.05) L 03/25/18 21:01 B-Natriuretic Peptide 6.4 pg/mL (5.0-100.0) 03/25/18 21:01 Total Protein 6.7 gm/dL (6.0-8.3) 03/25/18 21: Albumin 3.9 gm/dL (4.2-5.5) L 03/25/18 21: Globulin 2.8 gm/dL 03/25/18 21: Albumin/Globulin Ratio 1.4 (1.0-1.8) 03/25/18 21:01 Triglycerides 291 mg/dL (<150) H 03/25/18 21:01 Cholesterol 203 mg/dL (<200) H 03/25/18 21:01 LDL Cholesterol Direct 149 mg/dL (75-193) 03/25/18 21:01 HDL Cholesterol 42 mg/dL (23-92) 03/25/18 21: TSH 2.10 uIU/ml (0.34-5.60) 03/25/18 21:01 Urine Source MIDSTREAM 03/25/18 23:00 Urine Color YELLOW 03/25/18 23:00 Urine Clarity CLEAR (CLEAR) 03/25/18 23:00 Urine pH 6.0 (4.6 - 8.0) 03/25/18 23:00 Ur Specific [place] 1.015 (1.005-1.030) 03/25/18 23:00 Urine Protein NEGATIVE mg/dL (NEGATIVE) 03/25/18 23:00 Urine Glucose (UA) NEGATIVE mg/dL (NEGATIVE) 03/25/18 23:00 Urine Ketones NEGATIVE mg/dL (NEGATIVE) 03/25/18 23:00 Urine Blood NEGATIVE (NEGATIVE) 03/25/18 23:00 Urine Nitrate NEGATIVE (NEGATIVE) 03/25/18 23:00 Urine Bilirubin NEGATIVE (NEGATIVE) 03/25/18 23:00 Urine Urobilinogen 0.2 E.U./dL (0.2 - 1.0) 03/25/18 23:00 Ur Leukocyte Esterase NEGATIVE (NEGATIVE) 03/25/18 23:00 Valproic Acid 53.7 ug/mL (50.0-100.0) 03/26/18 07:40 - Physical Exam Vitals and I&O: Vital Signs Temp 98.4 F 03/31/18 04:52 Pulse 84 03/31/18 14:21 Resp 16 03/31/18 14:21 BP 126/79 03/31/18 04:52 Pulse Ox 93 03/31/18 14:21 Intake & Output 03/30/18 03/31/18 03/31/18 18:59 06:59 18:59 Intake Total 1200 240 Balance 1200 240 Intake: Oral 1200 240 Other: # Voids 4 3 # Bowel Movements 1 0 Stool Characteristics Formed Formed Brown Brown Active Medications: Current Medications Acetaminophen (Tylenol) 650 mg PO Q4HR PRN PRN Reason: Mild Pain / Temp above 100 Stop: 05/25/18 00:26 Last Admin: 03/31/18 11:20 Dose: 650 mg Al Hydrox/Mg Hydrox/Simethicone (Maalox) 30 ml PO Q4HR PRN PRN Reason: GI DISTRESS Stop: 05/25/18 00:26 Last Admin: 03/31/18 10:52 Dose: 30 ml Albuterol Sulfate (Albuterol 2.5mg/3ml Neb Ud) 2.5 mg HHN Q4HRT OMARI Stop: 05/25/18 22:59 Last Admin: 03/31/18 14:20 Dose: 2.5 mg Albuterol Sulfate (Albuterol 2.5mg/3ml Neb Ud) 2.5 mg HHN Q6H PRN PRN Reason: SOB,Wheezing Stop: 05/25/18 20:54 Last Admin: 03/31/18 00:33 Dose: 2.5 mg Carbidopa/Levodopa (Sinemet 25mg-100 Mg) 1 tab PO BID OMARI Stop: 05/26/18 08:59 Last Admin: 03/31/18 08:51 Dose: 1 tab Divalproex Sodium (Depakote Dr) 500 mg PO BID OMARI; Protocol Stop: 05/25/18 08:59 Last Admin: 03/31/18 08:51 Dose: 500 mg Fluticasone Propionate (Flonase) 1 spr NS DAILY OMARI Stop: 05/27/18 08:59 Last Admin: 03/31/18 08:52 Dose: 1 spr Lorazepam (Ativan) 0.5 mg PO Q4H PRN; Protocol PRN Reason: Anxiety Stop: 05/25/18 00:26 Last Admin: 03/31/18 11:19 Dose: 0.5 mg Magnesium Hydroxide (Milk Of Magnesia) 30 ml PO HS PRN PRN Reason: Constipation Multivitamins/Vitamin C (Theragran) 1 tab PO DAILY OMARI Stop: 05/25/18 08:59 Last Admin: 03/31/18 08:52 Dose: 1 tab Quetiapine Fumarate (Seroquel) 25 mg PO TID OMARI; Protocol Stop: 05/25/18 08:59 Last Admin: 03/31/18 14:27 Dose: Not Given Zolpidem Tartrate (Ambien) 5 mg PO HS PRN PRN Reason: Insomnia Stop: 05/25/18 00:26 Last Admin: 03/30/18 20:50 Dose: 5 mg General: demented HEENT: NC/AT Neck: Supple Lungs: CTAB Cardiovascular: RRR, Normal S1, Normal S2 Abdomen: soft, non-tender Extremities: clear Neurological: no change Internal Medicine Assmt/Plan - Assessment Assessment: psychosis htn dm copd seizure parkinson's disease - Plan Plan: as per psych will monitor behavior and condition closely Nutritional Asmnt/Malnutr-PDOC - Dietary Evaluation Malnutrition Findings (Please click <Entered> for more info): Nutritional Asmnt/Malnutrition Start: 03/28/18 14: 26 Text: Status: Complete Freq: Protocol: Document 03/28/18 14:26 [email or web address] (Rec: 03/28/18 14:31 [email or web address]) Nutritional Asmnt/Malnutrition Patient General Information Nutritional Screening Moderate Risk Diagnosis psychosis nos Pertinent Medical Hx/Surgical Hx DM, asthma, COPD, schizophrenia, bipolar Subjective Information Pt was seen eating in dining room at time of visit. Pt was alert but confused. PO intake is 100% per EMR. Current Diet Order/ Nutrition Support low sodium (2gm), CCHO Pertinent Medications maalox, theragran, seroquel, ambien Pertinent Labs 03/25 glucose 120, alb 3.9, triglycerides 291, cholesterol 203 Nutritional Hx/Data Height 1.73 m Height (Calculated Centimeters) 172.7 Current Weight (lbs) 91.172 kg Weight (Calculated Kilograms) 91.2 Weight (Calculated Grams) 28151.1 [place] Body Weight 154 Body Mass Index (BMI) 30.5 Weight Status Obese GI Symptoms GI Symptoms None Last BM 03/27 Difficult in: None Food Allergies No Skin Integrity/Comment: ludivina [place] 21 Current %PO Good (75-100%) Estimated Nutritional Goals BEE in Kcals: Adj wt of IBW Calories/Kcals/Kg 25-30 Kcals Calculated 9357-0894 Protein: Adj wt of IBW Protein g/k.8-1 Protein Calculated 60-75 Fluid: ml 8230-2852 (1ml/kcal) Nutritional Problem No current Nutrition Prob Problem N/A Intervention/Recommendation Comments 1. Continue with low sodium ( 2gm) CCHO diet as ordered. 2. Monitor PO intake, wt, labs and skin integrity 3. F/U as low risk in 7 days Expected Outcomes/Goals Expected Outcomes/Goals 1. PO intake to meet at least 75% of nutritional needs. 2. Wt stability, skin to remain intact, labs to approach WNL. Reviewed by Amanda Gloria RD
[2018-04-01] MEDS: Albuterol Nebulizer 2.5mg/3mL HHN SCH ×6 (02:12→22:16)
--- NOTE | 2018-04-01 02:20 | Progress Notes ---
DATE: SUBJECTIVE: Case was discussed with staff of the patient, reviewed records. This is 73-year-old male who was admitted 03/25/2018 because of agitation and confusion, difficulty following direction came from [facility], transferred to [facility] because the patient has been getting severely anxious. He has been complaining of little noise that has been bothering him, drooping water and that was bothering him. He was on Zyprexa. He is allergic to HALDOL. He continues to be easily agitated, unpredictable, impulsive, needing redirection, poor insight. He is on Depakote 500 mg twice a day and Sinemet one tablet twice a day as well as Seroquel 25 mg 3 times a day with no side effects, no sedation, no nausea, no extrapyramidal symptoms. We will continue with the patient in group therapy, milieu therapy, adjust medication as needed. JOB# [id number]
[2018-04-01] MEDS: Multivitamin Tab PO SCH (08:52)
[2018-04-01] MEDS: Fluticasone Propionate Nasal 1 SPR SPR NS SCH (09:45)
--- NOTE | 2018-04-01 13:49 | Internal Medicine Prog Note ---
Internal Medicine Subjective - Subjective Service Date: 04/01/18 Patient is:: awake, verbal, non-interactive, talking, agitated, confused, other (still angry and withdrawn, still having episodes of irritability and aggitation ,depressed mood.) Per staff patient has:: no adverse event, agitated, other (taking meds with no side affects) Internal Medicine Objective - Results Result Diagrams: 03/25/18 21:03/25/18 21: Recent Labs: Laboratory Last Values WBC 6.6 Th/cmm (4.8-10.8) 03/25/18 21: RBC 4.74 Mil/cmm (3.80-5.80) 03/25/18 21: Hgb 14.4 gm/dL (12-16) 03/25/18 21: Hct 43.7 % (41.0-60) 03/25/18 21: MCV 92.0 fl (80-99) 03/25/18 21: MCH 30.3 pg (27.0-31.0) 03/25/18 21: MCHC Differential 33.0 pg (28.0-36.0) 03/25/18 21: RDW 13.9 % (11.5-20.0) 03/25/18 21: Plt Count 183 Th/cmm (150-400) 03/25/18 21: MPV 8.6 fl 03/25/18 21: Neutrophils % 41.8 % (40.0-80.0) 03/25/18 21: Lymphocytes % 42.3 % (20.0-50.0) 03/25/18 21: Monocytes % 10.4 % (2.0-10.0) H 03/25/18 21: Eosinophils % 4.8 % (0.0-5.0) 03/25/18 21: Basophils % 0.7 % (0.0-2.0) 03/25/18 21: Sodium 138 mEq/L (136-145) 03/25/18 21: Potassium 4.2 mEq/L (3.5-5.1) 03/25/18 21: Chloride 100 mEq/L (98-107) 03/25/18 21: Carbon Dioxide 32.4 mEq/L (21.0-31.0) H 03/25/18 21:01 Anion Gap 9.8 (7.0-16.0) 03/25/18 21:01 BUN 17 mg/dL (7-25) 03/25/18 21:01 Creatinine 0.8 mg/dL (0.7-1.3) 03/25/18 21:01 Est GFR ( Amer) TNP 03/25/18 21:01 Est GFR (Non-Af Amer) TNP 03/25/18 21:01 BUN/Creatinine Ratio 21.3 03/25/18 21:01 Glucose 120 mg/dL (70-105) H 03/25/18 21: POC Glucose 94 MG/DL (70 - 105) 03/27/18 06:43 Calcium 9.1 mg/dL (8.6-10.3) 03/25/18 21: Total Bilirubin 0.3 mg/dL (0.3-1.0) 03/25/18 21:01 AST 15 U/L (13-39) 03/25/18 21: ALT 7 U/L (7-52) 03/25/18 21:01 Alkaline Phosphatase 224 U/L (34-104) H 03/25/18 21:01 Troponin I < 0.01 ng/mL (0.01-0.05) L 03/25/18 21:01 B-Natriuretic Peptide 6.4 pg/mL (5.0-100.0) 03/25/18 21:01 Total Protein 6.7 gm/dL (6.0-8.3) 03/25/18 21: Albumin 3.9 gm/dL (4.2-5.5) L 03/25/18 21: Globulin 2.8 gm/dL 03/25/18 21: Albumin/Globulin Ratio 1.4 (1.0-1.8) 03/25/18 21:01 Triglycerides 291 mg/dL (<150) H 03/25/18 21:01 Cholesterol 203 mg/dL (<200) H 03/25/18 21:01 LDL Cholesterol Direct 149 mg/dL (75-193) 03/25/18 21:01 HDL Cholesterol 42 mg/dL (23-92) 03/25/18 21: TSH 2.10 uIU/ml (0.34-5.60) 03/25/18 21:01 Urine Source MIDSTREAM 03/25/18 23:00 Urine Color YELLOW 03/25/18 23:00 Urine Clarity CLEAR (CLEAR) 03/25/18 23:00 Urine pH 6.0 (4.6 - 8.0) 03/25/18 23:00 Ur Specific [place] 1.015 (1.005-1.030) 03/25/18 23:00 Urine Protein NEGATIVE mg/dL (NEGATIVE) 03/25/18 23:00 Urine Glucose (UA) NEGATIVE mg/dL (NEGATIVE) 03/25/18 23:00 Urine Ketones NEGATIVE mg/dL (NEGATIVE) 03/25/18 23:00 Urine Blood NEGATIVE (NEGATIVE) 03/25/18 23:00 Urine Nitrate NEGATIVE (NEGATIVE) 03/25/18 23:00 Urine Bilirubin NEGATIVE (NEGATIVE) 03/25/18 23:00 Urine Urobilinogen 0.2 E.U./dL (0.2 - 1.0) 03/25/18 23:00 Ur Leukocyte Esterase NEGATIVE (NEGATIVE) 03/25/18 23:00 Valproic Acid 53.7 ug/mL (50.0-100.0) 03/26/18 07:40 - Physical Exam Vitals and I&O: Vital Signs Temp 98.7 F 04/01/18 06:06 Pulse 111 04/01/18 12:16 Resp 22 04/01/18 12:16 BP 135/91 04/01/18 06:06 Pulse Ox 94 04/01/18 12:16 Intake & Output 03/31/18 04/01/18 04/01/18 18:59 06:59 18:59 Intake Total 1800 240 Balance 1800 240 Intake: Oral 1800 240 Other: # Voids 3 2 # Bowel Movements 1 Stool Characteristics Formed Formed Formed Brown Brown Brown Active Medications: Current Medications Acetaminophen (Tylenol) 650 mg PO Q4HR PRN PRN Reason: Mild Pain / Temp above 100 Stop: 05/25/18 00:26 Last Admin: 04/01/18 02:04 Dose: 650 mg Al Hydrox/Mg Hydrox/Simethicone (Maalox) 30 ml PO Q4HR PRN PRN Reason: GI DISTRESS Stop: 05/25/18 00:26 Last Admin: 03/31/18 20:34 Dose: 30 ml Albuterol Sulfate (Albuterol 2.5mg/3ml Neb Ud) 2.5 mg HHN Q4HRT OMARI Stop: 05/25/18 22:59 Last Admin: 04/01/18 12:11 Dose: 2.5 mg Albuterol Sulfate (Albuterol 2.5mg/3ml Neb Ud) 2.5 mg HHN Q6H PRN PRN Reason: SOB,Wheezing Stop: 05/25/18 20:54 Last Admin: 03/31/18 00:33 Dose: 2.5 mg Carbidopa/Levodopa (Sinemet 25mg-100 Mg) 1 tab PO BID OMARI Stop: 05/26/18 08:59 Last Admin: 04/01/18 08:53 Dose: 1 tab Divalproex Sodium (Depakote Dr) 500 mg PO BID OMARI; Protocol Stop: 05/25/18 08:59 Last Admin: 04/01/18 08:53 Dose: 500 mg Fluticasone Propionate (Flonase) 1 spr NS DAILY OMARI Stop: 05/27/18 08:59 Last Admin: 04/01/18 09:45 Dose: Not Given Lorazepam (Ativan) 0.5 mg PO Q4H PRN; Protocol PRN Reason: Anxiety Stop: 05/25/18 00:26 Last Admin: 04/01/18 08:52 Dose: 0.5 mg Magnesium Hydroxide (Milk Of Magnesia) 30 ml PO HS PRN PRN Reason: Constipation Multivitamins/Vitamin C (Theragran) 1 tab PO DAILY OMARI Stop: 05/25/18 08:59 Last Admin: 04/01/18 08:52 Dose: 1 tab Quetiapine Fumarate (Seroquel) 25 mg PO TID OMARI; Protocol Stop: 05/25/18 08:59 Last Admin: 04/01/18 08:53 Dose: 25 mg Zolpidem Tartrate (Ambien) 5 mg PO HS PRN PRN Reason: Insomnia Stop: 05/25/18 00:26 Last Admin: 03/31/18 20:35 Dose: 5 mg General: demented HEENT: NC/AT Neck: Supple Lungs: CTAB Cardiovascular: RRR, Normal S1, Normal S2 Abdomen: soft, non-tender Extremities: clear Neurological: no change Internal Medicine Assmt/Plan - Assessment Assessment: psychosis htn dm copd seizure parkinson's disease - Plan Plan: monitor glucose cpm Nutritional Asmnt/Malnutr-PDOC - Dietary Evaluation Malnutrition Findings (Please click <Entered> for more info): Nutritional Asmnt/Malnutrition Start: 03/28/18 14: 26 Text: Status: Complete Freq: Protocol: Document 03/28/18 14:26 [email or web address] (Rec: 03/28/18 14:31 [email or web address]) Nutritional Asmnt/Malnutrition Patient General Information Nutritional Screening Moderate Risk Diagnosis psychosis nos Pertinent Medical Hx/Surgical Hx DM, asthma, COPD, schizophrenia, bipolar Subjective Information Pt was seen eating in dining room at time of visit. Pt was alert but confused. PO intake is 100% per EMR. Current Diet Order/ Nutrition Support low sodium (2gm), CCHO Pertinent Medications maalox, theragran, seroquel, ambien Pertinent Labs 03/25 glucose 120, alb 3.9, triglycerides 291, cholesterol 203 Nutritional Hx/Data Height 5 ft 8 in Height (Calculated Centimeters) 172.7 Current Weight (lbs) 201 lb Weight (Calculated Kilograms) 91.2 Weight (Calculated Grams) 78464.1 [place] Body Weight 154 Body Mass Index (BMI) 30.5 Weight Status Obese GI Symptoms GI Symptoms None Last BM 03/27 Difficult in: None Food Allergies No Skin Integrity/Comment: raegan, ludivina 21 Current %PO Good (75-100%) Estimated Nutritional Goals BEE in Kcals: Adj wt of IBW Calories/Kcals/Kg 25-30 Kcals Calculated 7876-7619 Protein: Adj wt of IBW Protein g/k.8-1 Protein Calculated 60-75 Fluid: ml 0663-6927 (1ml/kcal) Nutritional Problem No current Nutrition Prob Problem N/A Intervention/Recommendation Comments 1. Continue with low sodium ( 2gm) CCHO diet as ordered. 2. Monitor PO intake, wt, labs and skin integrity 3. F/U as low risk in 7 days Expected Outcomes/Goals Expected Outcomes/Goals 1. PO intake to meet at least 75% of nutritional needs. 2. Wt stability, skin to remain intact, labs to approach WNL. Reviewed by Amanda Gloria RD
[2018-04-01] MEDS: Maalox 30 mL Cup PO PRN (15:05)
--- NOTE | 2018-04-01 21:22 | Progress Notes ---
DATE: 04/01/2018 SUBJECTIVE: Case was discussed with staff of the patient, reviewed records. The patient continues to be easily agitated, irritable, continues to have poor insight. Continues to be disorganized, internally preoccupied. He is compliant with the medication with no side effects, no sedation, no nausea, no extrapyramidal symptoms. We will continue outpatient group therapy, milieu therapy, and adjust medications as needed. JOB# [id number]
[2018-04-02] MEDS: Albuterol Nebulizer 2.5mg/3mL HHN SCH ×5 (03:00→19:35)
[2018-04-02] MEDS: Fluticasone Propionate Nasal 1 SPR SPR NS SCH (08:37)
[2018-04-02] MEDS: Multivitamin Tab PO SCH (08:37)
--- NOTE | 2018-04-02 20:25 | Internal Medicine Prog Note ---
Internal Medicine Subjective - Subjective Service Date: 04/02/18 Patient is:: awake, verbal, non-interactive, talking, agitated, confused, other (still angry and withdrawn, still having episodes of irritability and aggitation ,depressed mood.) Per staff patient has:: no adverse event, agitated, other (taking meds with no side affects) Internal Medicine Objective - Results Result Diagrams: 03/25/18 21:03/25/18 21: Recent Labs: Laboratory Last Values WBC 6.6 Th/cmm (4.8-10.8) 03/25/18 21: RBC 4.74 Mil/cmm (3.80-5.80) 03/25/18 21: Hgb 14.4 gm/dL (12-16) 03/25/18 21: Hct 43.7 % (41.0-60) 03/25/18 21: MCV 92.0 fl (80-99) 03/25/18 21: MCH 30.3 pg (27.0-31.0) 03/25/18 21: MCHC Differential 33.0 pg (28.0-36.0) 03/25/18 21: RDW 13.9 % (11.5-20.0) 03/25/18 21: Plt Count 183 Th/cmm (150-400) 03/25/18 21: MPV 8.6 fl 03/25/18 21: Neutrophils % 41.8 % (40.0-80.0) 03/25/18 21: Lymphocytes % 42.3 % (20.0-50.0) 03/25/18 21: Monocytes % 10.4 % (2.0-10.0) H 03/25/18 21: Eosinophils % 4.8 % (0.0-5.0) 03/25/18 21: Basophils % 0.7 % (0.0-2.0) 03/25/18 21: Sodium 138 mEq/L (136-145) 03/25/18 21: Potassium 4.2 mEq/L (3.5-5.1) 03/25/18 21: Chloride 100 mEq/L (98-107) 03/25/18 21: Carbon Dioxide 32.4 mEq/L (21.0-31.0) H 03/25/18 21:01 Anion Gap 9.8 (7.0-16.0) 03/25/18 21:01 BUN 17 mg/dL (7-25) 03/25/18 21:01 Creatinine 0.8 mg/dL (0.7-1.3) 03/25/18 21:01 Est GFR ( Amer) TNP 03/25/18 21:01 Est GFR (Non-Af Amer) TNP 03/25/18 21:01 BUN/Creatinine Ratio 21.3 03/25/18 21:01 Glucose 120 mg/dL (70-105) H 03/25/18 21: POC Glucose 94 MG/DL (70 - 105) 03/27/18 06:43 Calcium 9.1 mg/dL (8.6-10.3) 03/25/18 21: Total Bilirubin 0.3 mg/dL (0.3-1.0) 03/25/18 21:01 AST 15 U/L (13-39) 03/25/18 21: ALT 7 U/L (7-52) 03/25/18 21:01 Alkaline Phosphatase 224 U/L (34-104) H 03/25/18 21:01 Troponin I < 0.01 ng/mL (0.01-0.05) L 03/25/18 21:01 B-Natriuretic Peptide 6.4 pg/mL (5.0-100.0) 03/25/18 21:01 Total Protein 6.7 gm/dL (6.0-8.3) 03/25/18 21: Albumin 3.9 gm/dL (4.2-5.5) L 03/25/18 21: Globulin 2.8 gm/dL 03/25/18 21: Albumin/Globulin Ratio 1.4 (1.0-1.8) 03/25/18 21:01 Triglycerides 291 mg/dL (<150) H 03/25/18 21:01 Cholesterol 203 mg/dL (<200) H 03/25/18 21:01 LDL Cholesterol Direct 149 mg/dL (75-193) 03/25/18 21:01 HDL Cholesterol 42 mg/dL (23-92) 03/25/18 21: TSH 2.10 uIU/ml (0.34-5.60) 03/25/18 21:01 Urine Source MIDSTREAM 03/25/18 23:00 Urine Color YELLOW 03/25/18 23:00 Urine Clarity CLEAR (CLEAR) 03/25/18 23:00 Urine pH 6.0 (4.6 - 8.0) 03/25/18 23:00 Ur Specific [place] 1.015 (1.005-1.030) 03/25/18 23:00 Urine Protein NEGATIVE mg/dL (NEGATIVE) 03/25/18 23:00 Urine Glucose (UA) NEGATIVE mg/dL (NEGATIVE) 03/25/18 23:00 Urine Ketones NEGATIVE mg/dL (NEGATIVE) 03/25/18 23:00 Urine Blood NEGATIVE (NEGATIVE) 03/25/18 23:00 Urine Nitrate NEGATIVE (NEGATIVE) 03/25/18 23:00 Urine Bilirubin NEGATIVE (NEGATIVE) 03/25/18 23:00 Urine Urobilinogen 0.2 E.U./dL (0.2 - 1.0) 03/25/18 23:00 Ur Leukocyte Esterase NEGATIVE (NEGATIVE) 03/25/18 23:00 Valproic Acid 53.7 ug/mL (50.0-100.0) 03/26/18 07:40 - Physical Exam Vitals and I&O: Vital Signs Temp 97.3 F 04/02/18 14:00 Pulse 106 04/02/18 19:36 Resp 22 04/02/18 19:36 BP 112/65 04/02/18 14:00 Pulse Ox 90 04/02/18 19:36 Intake & Output 04/02/18 04/02/18 04/03/18 06:59 18:59 06:59 Intake Total 240 1200 Output Total 1 Balance 239 1200 Intake: Oral 240 1200 Output: Urine/Stool Mix 1 Other: # Voids 1 # Bowel Movements 1 Stool Characteristics Brown Brown Active Medications: Current Medications Acetaminophen (Tylenol) 650 mg PO Q4HR PRN PRN Reason: Mild Pain / Temp above 100 Stop: 05/25/18 00:26 Last Admin: 04/01/18 15:05 Dose: 650 mg Al Hydrox/Mg Hydrox/Simethicone (Maalox) 30 ml PO Q4HR PRN PRN Reason: GI DISTRESS Stop: 05/25/18 00:26 Last Admin: 04/01/18 15:05 Dose: 30 ml Albuterol Sulfate (Albuterol 2.5mg/3ml Neb Ud) 2.5 mg HHN Q4HRT OMARI Stop: 05/25/18 22:59 Last Admin: 04/02/18 19:35 Dose: 2.5 mg Albuterol Sulfate (Albuterol 2.5mg/3ml Neb Ud) 2.5 mg HHN Q6H PRN PRN Reason: SOB,Wheezing Stop: 05/25/18 20:54 Last Admin: 03/31/18 00:33 Dose: 2.5 mg Carbidopa/Levodopa (Sinemet 25mg-100 Mg) 1 tab PO BID OMARI Stop: 05/26/18 08:59 Last Admin: 04/02/18 17:23 Dose: 1 tab Divalproex Sodium (Depakote Dr) 500 mg PO BID OMARI; Protocol Stop: 05/25/18 08:59 Last Admin: 04/02/18 17:24 Dose: 500 mg Fluticasone Propionate (Flonase) 1 spr NS DAILY OMARI Stop: 05/27/18 08:59 Last Admin: 04/02/18 08:37 Dose: 1 spr Lorazepam (Ativan) 0.5 mg PO Q4H PRN; Protocol PRN Reason: Anxiety Stop: 05/25/18 00:26 Last Admin: 04/01/18 15:05 Dose: 0.5 mg Magnesium Hydroxide (Milk Of Magnesia) 30 ml PO HS PRN PRN Reason: Constipation Multivitamins/Vitamin C (Theragran) 1 tab PO DAILY OMARI Stop: 05/25/18 08:59 Last Admin: 04/02/18 08:37 Dose: 1 tab Quetiapine Fumarate (Seroquel) 50 mg PO BID OMARI; Protocol Stop: 06/01/18 08:59 Last Admin: 04/02/18 17:23 Dose: 50 mg Zolpidem Tartrate (Ambien) 5 mg PO HS PRN PRN Reason: Insomnia Stop: 05/25/18 00:26 Last Admin: 04/01/18 20:25 Dose: 5 mg General: demented HEENT: NC/AT Neck: Supple Lungs: CTAB Cardiovascular: RRR, Normal S1, Normal S2 Abdomen: soft, non-tender Extremities: clear Neurological: no change Internal Medicine Assmt/Plan - Assessment Assessment: psychosis htn dm copd seizure parkinson's disease - Plan Plan: monitor glucose cpm Nutritional Asmnt/Malnutr-PDOC - Dietary Evaluation Malnutrition Findings (Please click <Entered> for more info): Nutritional Asmnt/Malnutrition Start: 03/28/18 14: 26 Text: Status: Complete Freq: Protocol: Document 03/28/18 14:26 [email or web address] (Rec: 03/28/18 14:31 [email or web address]) Nutritional Asmnt/Malnutrition Patient General Information Nutritional Screening Moderate Risk Diagnosis psychosis nos Pertinent Medical Hx/Surgical Hx DM, asthma, COPD, schizophrenia, bipolar Subjective Information Pt was seen eating in dining room at time of visit. Pt was alert but confused. PO intake is 100% per EMR. Current Diet Order/ Nutrition Support low sodium (2gm), CCHO Pertinent Medications maalox, theragran, seroquel, ambien Pertinent Labs 03/25 glucose 120, alb 3.9, triglycerides 291, cholesterol 203 Nutritional Hx/Data Height 5 ft 8 in Height (Calculated Centimeters) 172.7 Current Weight (lbs) 201 lb Weight (Calculated Kilograms) 91.2 Weight (Calculated Grams) 73036.1 [place] Body Weight 154 Body Mass Index (BMI) 30.5 Weight Status Obese GI Symptoms GI Symptoms None Last BM 03/27 Difficult in: None Food Allergies No Skin Integrity/Comment: ludivina carlin 21 Current %PO Good (75-100%) Estimated Nutritional Goals BEE in Kcals: Adj wt of IBW Calories/Kcals/Kg 25-30 Kcals Calculated 5878-9304 Protein: Adj wt of IBW Protein g/k.8-1 Protein Calculated 60-75 Fluid: ml 0780-2081 (1ml/kcal) Nutritional Problem No current Nutrition Prob Problem N/A Intervention/Recommendation Comments 1. Continue with low sodium ( 2gm) CCHO diet as ordered. 2. Monitor PO intake, wt, labs and skin integrity 3. F/U as low risk in 7 days Expected Outcomes/Goals Expected Outcomes/Goals 1. PO intake to meet at least 75% of nutritional needs. 2. Wt stability, skin to remain intact, labs to approach WNL. Reviewed by Amanda Gloria RD
[2018-04-02] MEDS: Maalox 30 mL Cup PO PRN (21:10)
[2018-04-03] MEDS: Albuterol Nebulizer 2.5mg/3mL HHN SCH ×7 (00:05→23:19)
--- NOTE | 2018-04-03 02:14 | Progress Notes ---
DATE: 04/02/2018 SUBJECTIVE: Chart reviewed and the patient interviewed. Also, discussed the patient's condition with the staff and reviewed records and labs. The patient continued to be impulsive and still has unpredictable behavior. The patient also is still easily agitated. The patient is still angry. Also, still having severe mood swings. Otherwise, the patient is compliant with taking medications. No side effects of Seroquel. TREATMENT PLAN: We will monitor the patient's behavior and condition closely. Also, we will increase Seroquel to 50 mg twice a day and will continue to follow up. [facility]# [id number]
[2018-04-03] MEDS: Multivitamin Tab PO SCH (09:58)
[2018-04-03] MEDS: Fluticasone Propionate Nasal 1 SPR SPR NS SCH (09:58)
--- NOTE | 2018-04-03 18:42 | Internal Medicine Prog Note ---
Internal Medicine Subjective - Subjective Service Date: 04/03/18 Patient is:: awake, verbal, non-interactive, talking, agitated, confused, other (still angry and withdrawn, still having episodes of irritability and aggitation ,depressed mood.) Per staff patient has:: no adverse event, agitated, other (taking meds with no side affects) Internal Medicine Objective - Results Result Diagrams: 03/25/18 21:03/25/18 21: Recent Labs: Laboratory Last Values WBC 6.6 Th/cmm (4.8-10.8) 03/25/18 21: RBC 4.74 Mil/cmm (3.80-5.80) 03/25/18 21: Hgb 14.4 gm/dL (12-16) 03/25/18 21: Hct 43.7 % (41.0-60) 03/25/18 21: MCV 92.0 fl (80-99) 03/25/18 21: MCH 30.3 pg (27.0-31.0) 03/25/18 21: MCHC Differential 33.0 pg (28.0-36.0) 03/25/18 21: RDW 13.9 % (11.5-20.0) 03/25/18 21: Plt Count 183 Th/cmm (150-400) 03/25/18 21: MPV 8.6 fl 03/25/18 21: Neutrophils % 41.8 % (40.0-80.0) 03/25/18 21: Lymphocytes % 42.3 % (20.0-50.0) 03/25/18 21: Monocytes % 10.4 % (2.0-10.0) H 03/25/18 21: Eosinophils % 4.8 % (0.0-5.0) 03/25/18 21: Basophils % 0.7 % (0.0-2.0) 03/25/18 21: Sodium 138 mEq/L (136-145) 03/25/18 21: Potassium 4.2 mEq/L (3.5-5.1) 03/25/18 21: Chloride 100 mEq/L (98-107) 03/25/18 21: Carbon Dioxide 32.4 mEq/L (21.0-31.0) H 03/25/18 21:01 Anion Gap 9.8 (7.0-16.0) 03/25/18 21:01 BUN 17 mg/dL (7-25) 03/25/18 21:01 Creatinine 0.8 mg/dL (0.7-1.3) 03/25/18 21:01 Est GFR ( Amer) TNP 03/25/18 21:01 Est GFR (Non-Af Amer) TNP 03/25/18 21:01 BUN/Creatinine Ratio 21.3 03/25/18 21:01 Glucose 120 mg/dL (70-105) H 03/25/18 21: POC Glucose 94 MG/DL (70 - 105) 03/27/18 06:43 Calcium 9.1 mg/dL (8.6-10.3) 03/25/18 21: Total Bilirubin 0.3 mg/dL (0.3-1.0) 03/25/18 21:01 AST 15 U/L (13-39) 03/25/18 21: ALT 7 U/L (7-52) 03/25/18 21:01 Alkaline Phosphatase 224 U/L (34-104) H 03/25/18 21:01 Troponin I < 0.01 ng/mL (0.01-0.05) L 03/25/18 21:01 B-Natriuretic Peptide 6.4 pg/mL (5.0-100.0) 03/25/18 21:01 Total Protein 6.7 gm/dL (6.0-8.3) 03/25/18 21: Albumin 3.9 gm/dL (4.2-5.5) L 03/25/18 21: Globulin 2.8 gm/dL 03/25/18 21: Albumin/Globulin Ratio 1.4 (1.0-1.8) 03/25/18 21:01 Triglycerides 291 mg/dL (<150) H 03/25/18 21:01 Cholesterol 203 mg/dL (<200) H 03/25/18 21:01 LDL Cholesterol Direct 149 mg/dL (75-193) 03/25/18 21:01 HDL Cholesterol 42 mg/dL (23-92) 03/25/18 21: TSH 2.10 uIU/ml (0.34-5.60) 03/25/18 21:01 Urine Source MIDSTREAM 03/25/18 23:00 Urine Color YELLOW 03/25/18 23:00 Urine Clarity CLEAR (CLEAR) 03/25/18 23:00 Urine pH 6.0 (4.6 - 8.0) 03/25/18 23:00 Ur Specific [place] 1.015 (1.005-1.030) 03/25/18 23:00 Urine Protein NEGATIVE mg/dL (NEGATIVE) 03/25/18 23:00 Urine Glucose (UA) NEGATIVE mg/dL (NEGATIVE) 03/25/18 23:00 Urine Ketones NEGATIVE mg/dL (NEGATIVE) 03/25/18 23:00 Urine Blood NEGATIVE (NEGATIVE) 03/25/18 23:00 Urine Nitrate NEGATIVE (NEGATIVE) 03/25/18 23:00 Urine Bilirubin NEGATIVE (NEGATIVE) 03/25/18 23:00 Urine Urobilinogen 0.2 E.U./dL (0.2 - 1.0) 03/25/18 23:00 Ur Leukocyte Esterase NEGATIVE (NEGATIVE) 03/25/18 23:00 Valproic Acid 53.7 ug/mL (50.0-100.0) 03/26/18 07:40 - Physical Exam Vitals and I&O: Vital Signs Temp 98.0 F 04/03/18 14:00 Pulse 99 04/03/18 16:24 Resp 22 04/03/18 16:24 BP 110/63 04/03/18 14:00 Pulse Ox 94 04/03/18 16:24 Intake & Output 04/02/18 04/03/18 04/03/18 18:59 06:59 18:59 Intake Total 4316 027 8720 Balance 8341 678 9920 Intake: Oral 0230 658 7993 Other: # Voids 3 4 # Bowel Movements 1 0 Stool Characteristics Brown Brown Active Medications: Current Medications Acetaminophen (Tylenol) 650 mg PO Q4HR PRN PRN Reason: Mild Pain / Temp above 100 Stop: 05/25/18 00:26 Last Admin: 04/02/18 21:04 Dose: 650 mg Al Hydrox/Mg Hydrox/Simethicone (Maalox) 30 ml PO Q4HR PRN PRN Reason: GI DISTRESS Stop: 05/25/18 00:26 Last Admin: 04/02/18 21:10 Dose: 30 ml Albuterol Sulfate (Albuterol 2.5mg/3ml Neb Ud) 2.5 mg HHN Q4HRT OMARI Stop: 05/25/18 22:59 Last Admin: 04/03/18 16:19 Dose: 2.5 mg Albuterol Sulfate (Albuterol 2.5mg/3ml Neb Ud) 2.5 mg HHN Q6H PRN PRN Reason: SOB,Wheezing Stop: 05/25/18 20:54 Last Admin: 03/31/18 00:33 Dose: 2.5 mg Carbidopa/Levodopa (Sinemet 25mg-100 Mg) 1 tab PO BID OMARI Stop: 05/26/18 08:59 Last Admin: 04/03/18 16:36 Dose: 1 tab Divalproex Sodium (Depakote Dr) 500 mg PO BID OMARI; Protocol Stop: 05/25/18 08:59 Last Admin: 04/03/18 16:37 Dose: 500 mg Fluticasone Propionate (Flonase) 1 spr NS DAILY OMARI Stop: 05/27/18 08:59 Last Admin: 04/03/18 09:58 Dose: 1 spr Lorazepam (Ativan) 0.5 mg PO Q4H PRN; Protocol PRN Reason: Anxiety Stop: 05/25/18 00:26 Last Admin: 04/01/18 15:05 Dose: 0.5 mg Magnesium Hydroxide (Milk Of Magnesia) 30 ml PO HS PRN PRN Reason: Constipation Multivitamins/Vitamin C (Theragran) 1 tab PO DAILY OMARI Stop: 05/25/18 08:59 Last Admin: 04/03/18 09:58 Dose: 1 tab Quetiapine Fumarate (Seroquel) 50 mg PO BID OMARI; Protocol Stop: 06/01/18 08:59 Last Admin: 04/03/18 16:37 Dose: 50 mg Zolpidem Tartrate (Ambien) 5 mg PO HS PRN PRN Reason: Insomnia Stop: 05/25/18 00:26 Last Admin: 04/02/18 21:04 Dose: 5 mg General: demented HEENT: NC/AT Neck: Supple Lungs: CTAB Cardiovascular: RRR, Normal S1, Normal S2 Abdomen: soft, non-tender Extremities: clear Neurological: no change Internal Medicine Assmt/Plan - Assessment Assessment: psychosis htn dm copd seizure parkinson's disease - Plan Plan: monitor glucose cpm Nutritional Asmnt/Malnutr-PDOC - Dietary Evaluation Malnutrition Findings (Please click <Entered> for more info): Nutritional Asmnt/Malnutrition Start: 03/28/18 14: 26 Text: Status: Complete Freq: Protocol: Document 03/28/18 14:26 [email or web address] (Rec: 03/28/18 14:31 [email or web address]) Nutritional Asmnt/Malnutrition Patient General Information Nutritional Screening Moderate Risk Diagnosis psychosis nos Pertinent Medical Hx/Surgical Hx DM, asthma, COPD, schizophrenia, bipolar Subjective Information Pt was seen eating in dining room at time of visit. Pt was alert but confused. PO intake is 100% per EMR. Current Diet Order/ Nutrition Support low sodium (2gm), CCHO Pertinent Medications maalox, theragran, seroquel, ambien Pertinent Labs 03/25 glucose 120, alb 3.9, triglycerides 291, cholesterol 203 Nutritional Hx/Data Height 5 ft 8 in Height (Calculated Centimeters) 172.7 Current Weight (lbs) 201 lb Weight (Calculated Kilograms) 91.2 Weight (Calculated Grams) 48854.1 [place] Body Weight 154 Body Mass Index (BMI) 30.5 Weight Status Obese GI Symptoms GI Symptoms None Last BM 03/27 Difficult in: None Food Allergies No Skin Integrity/Comment: intact, ludivina 21 Current %PO Good (75-100%) Estimated Nutritional Goals BEE in Kcals: Adj wt of IBW Calories/Kcals/Kg 25-30 Kcals Calculated 7063-1194 Protein: Adj wt of IBW Protein g/k.8-1 Protein Calculated 60-75 Fluid: ml 7227-3982 (1ml/kcal) Nutritional Problem No current Nutrition Prob Problem N/A Intervention/Recommendation Comments 1. Continue with low sodium ( 2gm) CCHO diet as ordered. 2. Monitor PO intake, wt, labs and skin integrity 3. F/U as low risk in 7 days Expected Outcomes/Goals Expected Outcomes/Goals 1. PO intake to meet at least 75% of nutritional needs. 2. Wt stability, skin to remain intact, labs to approach WNL. Reviewed by Amanda Gloria RD
--- NOTE | 2018-04-03 20:42 | Progress Notes ---
DATE: 04/03/2018 SUBJECTIVE: Chart reviewed and the patient interviewed. Also discussed the patient's condition with the staff and reviewed records and labs. The patient is still confused and he is still withdrawn. The patient also still seems to be suspicious and paranoid and is still wandering around the unit in a confused state. All still has periods of irritability and agitation, but seems to be less than before. The patient also is compliant with taking his medications with no side effects of medications. ASSESSMENT: The patient is still psychotic and agitated. TREATMENT PLAN: Continue to monitor his behavior and his condition closely. Also, yesterday, I increased the Depakote. Also, we will work with nurse case management in regard to discharge plans and placement issue. JOB# [id number]
[2018-04-03] MEDS: Maalox 30 mL Cup PO PRN (21:24)
[2018-04-04] MEDS: Albuterol Nebulizer 2.5mg/3mL HHN SCH ×5 (02:28→23:00)
[2018-04-04] MEDS: Fluticasone Propionate Nasal 1 SPR SPR NS SCH (09:56)
[2018-04-04] MEDS: Multivitamin Tab PO SCH (09:56)
--- NOTE | 2018-04-04 20:20 | Discharge Summary ---
DATE OF DISCHARGE: 04/04/2018 PATIENT'S AGE: 73. SEX: Male. PHYSICIAN: Nannette Jones MD, MPH FINAL DIAGNOSIS: PRIMARY DIAGNOSIS: Unspecified psychosis. SECONDARY DIAGNOSIS: Mild dementia. REASON FOR HOSPITALIZATION: The patient was admitted from [facility] because of increased agitation and confusion in the senior care and was not able to follow directions. HOSPITAL COURSE: The patient continued to be confused and agitated. The patient also was needing redirections. The patient was concerned about his condition and was also concerned about the senior care and wanted to go back there. The patient was started on Depakote in a dose of 500 mg twice a day and also he was given Seroquel in a dose of 50 mg twice a day. The patient gradually was calmer and his affect was brighter. The patient also interacted with others. The patient was not suicidal or homicidal, and he will return back to [facility]. Physical examination of the patient was basically within normal. The patient had no major medical problems while in the hospital. AFTER DISCHARGE PLANS: The patient discharged from the hospital with plans to continue his treatment in [facility]. EXPECTED OUTCOME AFTER DISCHARGE: Fair if the patient continued to take his medications and follow up with discharge plan. JOB# [id number]
[2018-04-04] MEDS: Maalox 30 mL Cup PO PRN (20:23)
[2018-04-05] MEDS: Albuterol Nebulizer 2.5mg/3mL HHN SCH ×6 (02:28→22:30)
[2018-04-05] MEDS: Multivitamin Tab PO SCH (08:27)
[2018-04-05] MEDS: Fluticasone Propionate Nasal 1 SPR SPR NS SCH (08:27)
--- NOTE | 2018-04-05 11:06 | Internal Medicine Prog Note ---
Internal Medicine Subjective - Subjective Service Date: 04/05/18 Patient is:: awake, verbal, non-interactive, talking, agitated, confused, other (still angry and withdrawn, still having episodes of irritability and aggitation ,depressed mood.) Per staff patient has:: no adverse event, agitated, other (taking meds with no side affects) Internal Medicine Objective - Results Result Diagrams: 03/25/18 21:03/25/18 21: Recent Labs: Laboratory Last Values WBC 6.6 Th/cmm (4.8-10.8) 03/25/18 21: RBC 4.74 Mil/cmm (3.80-5.80) 03/25/18 21: Hgb 14.4 gm/dL (12-16) 03/25/18 21: Hct 43.7 % (41.0-60) 03/25/18 21: MCV 92.0 fl (80-99) 03/25/18 21: MCH 30.3 pg (27.0-31.0) 03/25/18 21: MCHC Differential 33.0 pg (28.0-36.0) 03/25/18 21: RDW 13.9 % (11.5-20.0) 03/25/18 21: Plt Count 183 Th/cmm (150-400) 03/25/18 21: MPV 8.6 fl 03/25/18 21: Neutrophils % 41.8 % (40.0-80.0) 03/25/18 21: Lymphocytes % 42.3 % (20.0-50.0) 03/25/18 21: Monocytes % 10.4 % (2.0-10.0) H 03/25/18 21: Eosinophils % 4.8 % (0.0-5.0) 03/25/18 21: Basophils % 0.7 % (0.0-2.0) 03/25/18 21: Sodium 138 mEq/L (136-145) 03/25/18 21: Potassium 4.2 mEq/L (3.5-5.1) 03/25/18 21: Chloride 100 mEq/L (98-107) 03/25/18 21: Carbon Dioxide 32.4 mEq/L (21.0-31.0) H 03/25/18 21:01 Anion Gap 9.8 (7.0-16.0) 03/25/18 21:01 BUN 17 mg/dL (7-25) 03/25/18 21:01 Creatinine 0.8 mg/dL (0.7-1.3) 03/25/18 21:01 Est GFR ( Amer) TNP 03/25/18 21:01 Est GFR (Non-Af Amer) TNP 03/25/18 21:01 BUN/Creatinine Ratio 21.3 03/25/18 21:01 Glucose 120 mg/dL (70-105) H 03/25/18 21: POC Glucose 94 MG/DL (70 - 105) 03/27/18 06:43 Calcium 9.1 mg/dL (8.6-10.3) 03/25/18 21: Total Bilirubin 0.3 mg/dL (0.3-1.0) 03/25/18 21:01 AST 15 U/L (13-39) 03/25/18 21: ALT 7 U/L (7-52) 03/25/18 21:01 Alkaline Phosphatase 224 U/L (34-104) H 03/25/18 21:01 Troponin I < 0.01 ng/mL (0.01-0.05) L 03/25/18 21:01 B-Natriuretic Peptide 6.4 pg/mL (5.0-100.0) 03/25/18 21:01 Total Protein 6.7 gm/dL (6.0-8.3) 03/25/18 21: Albumin 3.9 gm/dL (4.2-5.5) L 03/25/18 21: Globulin 2.8 gm/dL 03/25/18 21: Albumin/Globulin Ratio 1.4 (1.0-1.8) 03/25/18 21:01 Triglycerides 291 mg/dL (<150) H 03/25/18 21:01 Cholesterol 203 mg/dL (<200) H 03/25/18 21:01 LDL Cholesterol Direct 149 mg/dL (75-193) 03/25/18 21:01 HDL Cholesterol 42 mg/dL (23-92) 03/25/18 21: TSH 2.10 uIU/ml (0.34-5.60) 03/25/18 21:01 Urine Source MIDSTREAM 03/25/18 23:00 Urine Color YELLOW 03/25/18 23:00 Urine Clarity CLEAR (CLEAR) 03/25/18 23:00 Urine pH 6.0 (4.6 - 8.0) 03/25/18 23:00 Ur Specific [place] 1.015 (1.005-1.030) 03/25/18 23:00 Urine Protein NEGATIVE mg/dL (NEGATIVE) 03/25/18 23:00 Urine Glucose (UA) NEGATIVE mg/dL (NEGATIVE) 03/25/18 23:00 Urine Ketones NEGATIVE mg/dL (NEGATIVE) 03/25/18 23:00 Urine Blood NEGATIVE (NEGATIVE) 03/25/18 23:00 Urine Nitrate NEGATIVE (NEGATIVE) 03/25/18 23:00 Urine Bilirubin NEGATIVE (NEGATIVE) 03/25/18 23:00 Urine Urobilinogen 0.2 E.U./dL (0.2 - 1.0) 03/25/18 23:00 Ur Leukocyte Esterase NEGATIVE (NEGATIVE) 03/25/18 23:00 Valproic Acid 53.7 ug/mL (50.0-100.0) 03/26/18 07:40 - Physical Exam Vitals and I&O: Vital Signs Temp 97.1 F 04/05/18 06:23 Pulse 94 04/05/18 08:04 Resp 20 04/05/18 08:04 BP 136/79 04/05/18 06:23 Pulse Ox 93 04/05/18 08:04 Intake & Output 04/04/18 04/05/18 04/05/18 18:59 06:59 18:59 Intake Total 1400 Balance 1400 Intake: Oral 1400 Other: # Voids 3 # Bowel Movements 0 Active Medications: Current Medications Acetaminophen (Tylenol) 650 mg PO Q4HR PRN PRN Reason: Mild Pain / Temp above 100 Stop: 05/25/18 00:26 Last Admin: 04/02/18 21:04 Dose: 650 mg Al Hydrox/Mg Hydrox/Simethicone (Maalox) 30 ml PO Q4HR PRN PRN Reason: GI DISTRESS Stop: 05/25/18 00:26 Last Admin: 04/04/18 20:23 Dose: 30 ml Albuterol Sulfate (Albuterol 2.5mg/3ml Neb Ud) 2.5 mg HHN Q4HRT OMARI Stop: 05/25/18 22:59 Last Admin: 04/05/18 08:02 Dose: 2.5 mg Albuterol Sulfate (Albuterol 2.5mg/3ml Neb Ud) 2.5 mg HHN Q6H PRN PRN Reason: SOB,Wheezing Stop: 05/25/18 20:54 Last Admin: 03/31/18 00:33 Dose: 2.5 mg Carbidopa/Levodopa (Sinemet 25mg-100 Mg) 1 tab PO BID OMARI Stop: 05/26/18 08:59 Last Admin: 04/05/18 08:27 Dose: 1 tab Divalproex Sodium (Depakote Dr) 500 mg PO BID [facility]; Protocol Stop: 05/25/18 08:59 Last Admin: 04/05/18 08:28 Dose: 500 mg Fluticasone Propionate (Flonase) 1 spr NS DAILY OMARI Stop: 05/27/18 08:59 Last Admin: 04/05/18 08:27 Dose: Not Given Lorazepam (Ativan) 0.5 mg PO Q4H PRN; Protocol PRN Reason: Anxiety Stop: 05/25/18 00:26 Last Admin: 04/01/18 15:05 Dose: 0.5 mg Magnesium Hydroxide (Milk Of Magnesia) 30 ml PO HS PRN PRN Reason: Constipation Multivitamins/Vitamin C (Theragran) 1 tab PO DAILY OMARI Stop: 05/25/18 08:59 Last Admin: 04/05/18 08:27 Dose: 1 tab Quetiapine Fumarate (Seroquel) 50 mg PO BID OMARI; Protocol Stop: 06/01/18 08:59 Last Admin: 04/05/18 08:28 Dose: 50 mg Zolpidem Tartrate (Ambien) 5 mg PO HS PRN PRN Reason: Insomnia Stop: 05/25/18 00:26 Last Admin: 04/04/18 20:23 Dose: 5 mg General: demented HEENT: NC/AT Neck: Supple Lungs: CTAB Cardiovascular: RRR, Normal S1, Normal S2 Abdomen: soft, non-tender Extremities: clear Neurological: no change Internal Medicine Assmt/Plan - Assessment Assessment: psychosis htn dm copd seizure parkinson's disease - Plan Plan: monitor glucose cpm Nutritional Asmnt/Malnutr-PDOC - Dietary Evaluation Malnutrition Findings (Please click <Entered> for more info): Nutritional Asmnt/Malnutrition Start: 03/28/18 14: 26 Text: Status: Complete Freq: Protocol: Document 03/28/18 14:26 [email or web address] (Rec: 03/28/18 14:31 [email or web address]) Nutritional Asmnt/Malnutrition Patient General Information Nutritional Screening Moderate Risk Diagnosis psychosis nos Pertinent Medical Hx/Surgical Hx DM, asthma, COPD, schizophrenia, bipolar Subjective Information Pt was seen eating in dining room at time of visit. Pt was alert but confused. PO intake is 100% per EMR. Current Diet Order/ Nutrition Support low sodium (2gm), CCHO Pertinent Medications maalox, theragran, seroquel, ambien Pertinent Labs 03/25 glucose 120, alb 3.9, triglycerides 291, cholesterol 203 Nutritional Hx/Data Height 5 ft 8 in Height (Calculated Centimeters) 172.7 Current Weight (lbs) 201 lb Weight (Calculated Kilograms) 91.2 Weight (Calculated Grams) 67109.1 [place] Body Weight 154 Body Mass Index (BMI) 30.5 Weight Status Obese GI Symptoms GI Symptoms None Last BM 03/27 Difficult in: None Food Allergies No Skin Integrity/Comment: intact, ludivina 21 Current %PO Good (75-100%) Estimated Nutritional Goals BEE in Kcals: Adj wt of IBW Calories/Kcals/Kg 25-30 Kcals Calculated 7761-2594 Protein: Adj wt of IBW Protein g/k.8-1 Protein Calculated 60-75 Fluid: ml 6478-9848 (1ml/kcal) Nutritional Problem No current Nutrition Prob Problem N/A Intervention/Recommendation Comments 1. Continue with low sodium ( 2gm) CCHO diet as ordered. 2. Monitor PO intake, wt, labs and skin integrity 3. F/U as low risk in 7 days Expected Outcomes/Goals Expected Outcomes/Goals 1. PO intake to meet at least 75% of nutritional needs. 2. Wt stability, skin to remain intact, labs to approach WNL. Reviewed by Amanda Gloria RD
[2018-04-05] MEDS: Maalox 30 mL Cup PO PRN (20:41)
--- NOTE | 2018-04-06 01:33 | Progress Notes ---
DATE: 04/05/2018 PSYCHIATRIC PROGREE NOTE SUBJECTIVE: Chart reviewed and the patient interviewed. Also discussed the patient's condition with the staff and reviewed records and labs. The patient is still anxious about his discharge. The patient was supposed to be discharged yesterday, but for unknown reason the patient did not leave. The patient also is still guarded and withdrawn. Otherwise, he is compliant with taking medications and no behavioral issues. ASSESSMENT: The patient is calm and cooperative. TREATMENT PLAN: We will continue to work on his discharge plan and planning to discharge the patient today. Hopefully, staff will let him go. JOB# [id number]
[2018-04-06] MEDS: Albuterol Nebulizer 2.5mg/3mL HHN SCH ×6 (02:00→22:24)
[2018-04-06] MEDS: Multivitamin Tab PO SCH (09:56)
--- NOTE | 2018-04-06 12:37 | Internal Medicine Prog Note ---
Internal Medicine Subjective - Subjective Service Date: 04/06/18 Patient is:: awake, verbal, non-interactive, talking, agitated, confused, other (still angry and withdrawn, still having episodes of irritability and aggitation ,depressed mood.) Per staff patient has:: no adverse event, agitated, other (taking meds with no side affects) Internal Medicine Objective - Results Result Diagrams: 03/25/18 21:03/25/18 21: Recent Labs: Laboratory Last Values WBC 6.6 Th/cmm (4.8-10.8) 03/25/18 21: RBC 4.74 Mil/cmm (3.80-5.80) 03/25/18 21: Hgb 14.4 gm/dL (12-16) 03/25/18 21: Hct 43.7 % (41.0-60) 03/25/18 21: MCV 92.0 fl (80-99) 03/25/18 21: MCH 30.3 pg (27.0-31.0) 03/25/18 21: MCHC Differential 33.0 pg (28.0-36.0) 03/25/18 21: RDW 13.9 % (11.5-20.0) 03/25/18 21: Plt Count 183 Th/cmm (150-400) 03/25/18 21: MPV 8.6 fl 03/25/18 21: Neutrophils % 41.8 % (40.0-80.0) 03/25/18 21: Lymphocytes % 42.3 % (20.0-50.0) 03/25/18 21: Monocytes % 10.4 % (2.0-10.0) H 03/25/18 21: Eosinophils % 4.8 % (0.0-5.0) 03/25/18 21: Basophils % 0.7 % (0.0-2.0) 03/25/18 21: Sodium 138 mEq/L (136-145) 03/25/18 21: Potassium 4.2 mEq/L (3.5-5.1) 03/25/18 21: Chloride 100 mEq/L (98-107) 03/25/18 21: Carbon Dioxide 32.4 mEq/L (21.0-31.0) H 03/25/18 21:01 Anion Gap 9.8 (7.0-16.0) 03/25/18 21:01 BUN 17 mg/dL (7-25) 03/25/18 21:01 Creatinine 0.8 mg/dL (0.7-1.3) 03/25/18 21:01 Est GFR ( Amer) TNP 03/25/18 21:01 Est GFR (Non-Af Amer) TNP 03/25/18 21:01 BUN/Creatinine Ratio 21.3 03/25/18 21:01 Glucose 120 mg/dL (70-105) H 03/25/18 21: POC Glucose 94 MG/DL (70 - 105) 03/27/18 06:43 Calcium 9.1 mg/dL (8.6-10.3) 03/25/18 21: Total Bilirubin 0.3 mg/dL (0.3-1.0) 03/25/18 21:01 AST 15 U/L (13-39) 03/25/18 21: ALT 7 U/L (7-52) 03/25/18 21:01 Alkaline Phosphatase 224 U/L (34-104) H 03/25/18 21:01 Troponin I < 0.01 ng/mL (0.01-0.05) L 03/25/18 21:01 B-Natriuretic Peptide 6.4 pg/mL (5.0-100.0) 03/25/18 21:01 Total Protein 6.7 gm/dL (6.0-8.3) 03/25/18 21: Albumin 3.9 gm/dL (4.2-5.5) L 03/25/18 21: Globulin 2.8 gm/dL 03/25/18 21: Albumin/Globulin Ratio 1.4 (1.0-1.8) 03/25/18 21:01 Triglycerides 291 mg/dL (<150) H 03/25/18 21:01 Cholesterol 203 mg/dL (<200) H 03/25/18 21:01 LDL Cholesterol Direct 149 mg/dL (75-193) 03/25/18 21:01 HDL Cholesterol 42 mg/dL (23-92) 03/25/18 21: TSH 2.10 uIU/ml (0.34-5.60) 03/25/18 21:01 Urine Source MIDSTREAM 03/25/18 23:00 Urine Color YELLOW 03/25/18 23:00 Urine Clarity CLEAR (CLEAR) 03/25/18 23:00 Urine pH 6.0 (4.6 - 8.0) 03/25/18 23:00 Ur Specific [place] 1.015 (1.005-1.030) 03/25/18 23:00 Urine Protein NEGATIVE mg/dL (NEGATIVE) 03/25/18 23:00 Urine Glucose (UA) NEGATIVE mg/dL (NEGATIVE) 03/25/18 23:00 Urine Ketones NEGATIVE mg/dL (NEGATIVE) 03/25/18 23:00 Urine Blood NEGATIVE (NEGATIVE) 03/25/18 23:00 Urine Nitrate NEGATIVE (NEGATIVE) 03/25/18 23:00 Urine Bilirubin NEGATIVE (NEGATIVE) 03/25/18 23:00 Urine Urobilinogen 0.2 E.U./dL (0.2 - 1.0) 03/25/18 23:00 Ur Leukocyte Esterase NEGATIVE (NEGATIVE) 03/25/18 23:00 Valproic Acid 53.7 ug/mL (50.0-100.0) 03/26/18 07:40 - Physical Exam Vitals and I&O: Vital Signs Temp 97.7 F 04/06/18 05:50 Pulse 100 04/06/18 11:01 Resp 18 04/06/18 11:01 BP 134/90 04/06/18 05:50 Pulse Ox 93 04/06/18 11:01 Intake & Output 04/05/18 04/06/18 04/06/18 18:59 06:59 18:59 Intake Total 1200 120 Balance 1200 120 Intake: Oral 1200 120 Other: # Voids 4 3 # Bowel Movements 1 0 Active Medications: Current Medications Acetaminophen (Tylenol) 650 mg PO Q4HR PRN PRN Reason: Mild Pain / Temp above 100 Stop: 05/25/18 00:26 Last Admin: 04/02/18 21:04 Dose: 650 mg Al Hydrox/Mg Hydrox/Simethicone (Maalox) 30 ml PO Q4HR PRN PRN Reason: GI DISTRESS Stop: 05/25/18 00:26 Last Admin: 04/05/18 20:41 Dose: 30 ml Albuterol Sulfate (Albuterol 2.5mg/3ml Neb Ud) 2.5 mg HHN Q4HRT OMARI Stop: 05/25/18 22:59 Last Admin: 04/06/18 10:48 Dose: 2.5 mg Albuterol Sulfate (Albuterol 2.5mg/3ml Neb Ud) 2.5 mg HHN Q6H PRN PRN Reason: SOB,Wheezing Stop: 05/25/18 20:54 Last Admin: 03/31/18 00:33 Dose: 2.5 mg Carbidopa/Levodopa (Sinemet 25mg-100 Mg) 1 tab PO BID OMARI Stop: 05/26/18 08:59 Last Admin: 04/06/18 09:56 Dose: 1 tab Divalproex Sodium (Depakote Dr) 500 mg PO BID [facility]; Protocol Stop: 05/25/18 08:59 Last Admin: 04/06/18 09:56 Dose: 500 mg Fluticasone Propionate (Flonase) 1 spr NS DAILY OMARI Stop: 05/27/18 08:59 Last Admin: 04/05/18 08:27 Dose: Not Given Lorazepam (Ativan) 0.5 mg PO Q4H PRN; Protocol PRN Reason: Anxiety Stop: 05/25/18 00:26 Last Admin: 04/01/18 15:05 Dose: 0.5 mg Magnesium Hydroxide (Milk Of Magnesia) 30 ml PO HS PRN PRN Reason: Constipation Multivitamins/Vitamin C (Theragran) 1 tab PO DAILY OMARI Stop: 05/25/18 08:59 Last Admin: 04/06/18 09:56 Dose: 1 tab Quetiapine Fumarate (Seroquel) 50 mg PO BID OMARI; Protocol Stop: 06/01/18 08:59 Last Admin: 04/06/18 09:56 Dose: 50 mg Zolpidem Tartrate (Ambien) 5 mg PO HS PRN PRN Reason: Insomnia Stop: 05/25/18 00:26 Last Admin: 04/05/18 20:41 Dose: 5 mg General: demented HEENT: NC/AT Neck: Supple Lungs: CTAB Cardiovascular: RRR, Normal S1, Normal S2 Abdomen: soft, non-tender Extremities: clear Neurological: no change Internal Medicine Assmt/Plan - Assessment Assessment: psychosis htn dm copd seizure parkinson's disease - Plan Plan: monitor glucose cpm Nutritional Asmnt/Malnutr-PDOC - Dietary Evaluation Malnutrition Findings (Please click <Entered> for more info): Nutritional Asmnt/Malnutrition Start: 03/28/18 14: 26 Text: Status: Complete Freq: Protocol: Document 03/28/18 14:26 [email or web address] (Rec: 03/28/18 14:31 [email or web address]) Nutritional Asmnt/Malnutrition Patient General Information Nutritional Screening Moderate Risk Diagnosis psychosis nos Pertinent Medical Hx/Surgical Hx DM, asthma, COPD, schizophrenia, bipolar Subjective Information Pt was seen eating in dining room at time of visit. Pt was alert but confused. PO intake is 100% per EMR. Current Diet Order/ Nutrition Support low sodium (2gm), CCHO Pertinent Medications maalox, theragran, seroquel, ambien Pertinent Labs 03/25 glucose 120, alb 3.9, triglycerides 291, cholesterol 203 Nutritional Hx/Data Height 5 ft 8 in Height (Calculated Centimeters) 172.7 Current Weight (lbs) 201 lb Weight (Calculated Kilograms) 91.2 Weight (Calculated Grams) 80869.1 [place] Body Weight 154 Body Mass Index (BMI) 30.5 Weight Status Obese GI Symptoms GI Symptoms None Last BM 03/27 Difficult in: None Food Allergies No Skin Integrity/Comment: intact, ludivina 21 Current %PO Good (75-100%) Estimated Nutritional Goals BEE in Kcals: Adj wt of IBW Calories/Kcals/Kg 25-30 Kcals Calculated 1734-3598 Protein: Adj wt of IBW Protein g/k.8-1 Protein Calculated 60-75 Fluid: ml 9628-9002 (1ml/kcal) Nutritional Problem No current Nutrition Prob Problem N/A Intervention/Recommendation Comments 1. Continue with low sodium ( 2gm) CCHO diet as ordered. 2. Monitor PO intake, wt, labs and skin integrity 3. F/U as low risk in 7 days Expected Outcomes/Goals Expected Outcomes/Goals 1. PO intake to meet at least 75% of nutritional needs. 2. Wt stability, skin to remain intact, labs to approach WNL. Reviewed by Amanda Gloria RD
[2018-04-06] MEDS: Fluticasone Propionate Nasal 1 SPR SPR NS SCH (16:58)
--- NOTE | 2018-04-06 22:13 | Progress Notes ---
DATE: 04/06/2018 PSYCHIATRIC PROGRESS NOTE Chart reviewed and the patient interviewed. Also discussed the patient's condition with the staff and reviewed records and labs. The patient is still anxious and the patient is about leaving. He asked why he did not leave for the last 2 days and I have no answer to that. The patient is still cooperative with his treatment and he is exhibiting no major behavioral issues. I placed the discharge order for the patient, why the patient did not leave yet. At the same time, we will continue monitoring his behavior and will continue working on his discharge. JOB# [id number]
[2018-04-07] MEDS: Albuterol Nebulizer 2.5mg/3mL HHN SCH ×3 (02:47→10:45)
--- NOTE | 2018-04-07 08:19 | Discharge Summary ---
DATE OF DISCHARGE: 04/07/2018 PSYCHIATRIC DISCHARGE SUMMARY PATIENT'S AGE: 73. SEX: Male. PHYSICIAN: Nannette Jones MD, MPH Please refer to the discharge summary that was dictated on 04/04/2018 and the job number is [id number] and it was dictated on 04/04/2018 because the patient was supposed to leave at this date. The patient stayed in the hospital for unknown reason and according to staff at [facility] did not take the patient because they have no beds, although they took another patient on the same day. Anyway the patient did not leave and did not change his medication still today 04/07/2018 and I ordered the patient to be discharged and with no major behavioral issues or any change on his condition since the discharge summary that was done on 04/04/2018. JOB# [id number]
[2018-04-07] MEDS: Multivitamin Tab PO SCH (09:12)
[2018-04-07] MEDS: Fluticasone Propionate Nasal 1 SPR SPR NS SCH (11:53)
--- NOTE | 2018-04-07 13:00 | Progress Notes ---
DATE: DATE OF REPORT: 04/04/2018. The patient was supposed to be discharged on 04/04/2018, but staff did not discharge the patient and I was not informed until I came next day that the patient did not leave because they had no beds. The patient had no change in behavior except frustration for being staying in the hospital after I told him that he is being discharged. JOB# [id number]
--- NOTE | 2018-04-07 13:20 | Internal Medicine Prog Note ---
Internal Medicine Subjective - Subjective Service Date: 04/07/18 Patient is:: awake, verbal, non-interactive, talking, agitated, confused, other (still angry and withdrawn, still having episodes of irritability and aggitation ,depressed mood.) Per staff patient has:: no adverse event, agitated, other (taking meds with no side affects) Internal Medicine Objective - Results Result Diagrams: 03/25/18 21:03/25/18 21: Recent Labs: Laboratory Last Values WBC 6.6 Th/cmm (4.8-10.8) 03/25/18 21: RBC 4.74 Mil/cmm (3.80-5.80) 03/25/18 21: Hgb 14.4 gm/dL (12-16) 03/25/18 21: Hct 43.7 % (41.0-60) 03/25/18 21: MCV 92.0 fl (80-99) 03/25/18 21: MCH 30.3 pg (27.0-31.0) 03/25/18 21: MCHC Differential 33.0 pg (28.0-36.0) 03/25/18 21: RDW 13.9 % (11.5-20.0) 03/25/18 21: Plt Count 183 Th/cmm (150-400) 03/25/18 21: MPV 8.6 fl 03/25/18 21: Neutrophils % 41.8 % (40.0-80.0) 03/25/18 21: Lymphocytes % 42.3 % (20.0-50.0) 03/25/18 21: Monocytes % 10.4 % (2.0-10.0) H 03/25/18 21: Eosinophils % 4.8 % (0.0-5.0) 03/25/18 21: Basophils % 0.7 % (0.0-2.0) 03/25/18 21: Sodium 138 mEq/L (136-145) 03/25/18 21: Potassium 4.2 mEq/L (3.5-5.1) 03/25/18 21: Chloride 100 mEq/L (98-107) 03/25/18 21: Carbon Dioxide 32.4 mEq/L (21.0-31.0) H 03/25/18 21:01 Anion Gap 9.8 (7.0-16.0) 03/25/18 21:01 BUN 17 mg/dL (7-25) 03/25/18 21:01 Creatinine 0.8 mg/dL (0.7-1.3) 03/25/18 21:01 Est GFR ( Amer) TNP 03/25/18 21:01 Est GFR (Non-Af Amer) TNP 03/25/18 21:01 BUN/Creatinine Ratio 21.3 03/25/18 21:01 Glucose 120 mg/dL (70-105) H 03/25/18 21: POC Glucose 94 MG/DL (70 - 105) 03/27/18 06:43 Calcium 9.1 mg/dL (8.6-10.3) 03/25/18 21: Total Bilirubin 0.3 mg/dL (0.3-1.0) 03/25/18 21:01 AST 15 U/L (13-39) 03/25/18 21: ALT 7 U/L (7-52) 03/25/18 21:01 Alkaline Phosphatase 224 U/L (34-104) H 03/25/18 21:01 Troponin I < 0.01 ng/mL (0.01-0.05) L 03/25/18 21:01 B-Natriuretic Peptide 6.4 pg/mL (5.0-100.0) 03/25/18 21:01 Total Protein 6.7 gm/dL (6.0-8.3) 03/25/18 21: Albumin 3.9 gm/dL (4.2-5.5) L 03/25/18 21: Globulin 2.8 gm/dL 03/25/18 21: Albumin/Globulin Ratio 1.4 (1.0-1.8) 03/25/18 21:01 Triglycerides 291 mg/dL (<150) H 03/25/18 21:01 Cholesterol 203 mg/dL (<200) H 03/25/18 21:01 LDL Cholesterol Direct 149 mg/dL (75-193) 03/25/18 21:01 HDL Cholesterol 42 mg/dL (23-92) 03/25/18 21: TSH 2.10 uIU/ml (0.34-5.60) 03/25/18 21:01 Urine Source [place] 03/25/18 23:00 Urine Color YELLOW 03/25/18 23:00 Urine Clarity CLEAR (CLEAR) 03/25/18 23:00 Urine pH 6.0 (4.6 - 8.0) 03/25/18 23:00 Ur Specific [place] 1.015 (1.005-1.030) 03/25/18 23:00 Urine Protein NEGATIVE mg/dL (NEGATIVE) 03/25/18 23:00 Urine Glucose (UA) NEGATIVE mg/dL (NEGATIVE) 03/25/18 23:00 Urine Ketones NEGATIVE mg/dL (NEGATIVE) 03/25/18 23:00 Urine Blood NEGATIVE (NEGATIVE) 03/25/18 23:00 Urine Nitrate NEGATIVE (NEGATIVE) 03/25/18 23:00 Urine Bilirubin NEGATIVE (NEGATIVE) 03/25/18 23:00 Urine Urobilinogen 0.2 E.U./dL (0.2 - 1.0) 03/25/18 23:00 Ur Leukocyte Esterase NEGATIVE (NEGATIVE) 03/25/18 23:00 Valproic Acid 53.7 ug/mL (50.0-100.0) 03/26/18 07:40 - Physical Exam Vitals and I&O: Vital Signs Temp 98.8 F 04/07/18 05:52 Pulse 95 04/07/18 10:40 Resp 18 04/07/18 10:40 BP 136/91 04/07/18 05:52 Pulse Ox 96 04/07/18 10:40 Intake & Output 04/06/18 04/07/18 04/07/18 18:59 06:59 18:59 Intake Total 1800 120 Balance 1800 120 Intake: Oral 1800 120 Other: # Voids 3 3 # Bowel Movements 2 0 Active Medications: Current Medications Acetaminophen (Tylenol) 650 mg PO Q4HR PRN PRN Reason: Mild Pain / Temp above 100 Stop: 05/25/18 00:26 Last Admin: 04/02/18 21:04 Dose: 650 mg Al Hydrox/Mg Hydrox/Simethicone (Maalox) 30 ml PO Q4HR PRN PRN Reason: GI DISTRESS Stop: 05/25/18 00:26 Last Admin: 04/05/18 20:41 Dose: 30 ml Carbidopa/Levodopa (Sinemet 25mg-100 Mg) 1 tab PO BID OMARI Stop: 05/26/18 08:59 Last Admin: 04/07/18 09:12 Dose: 1 tab Divalproex Sodium (Depakote Dr) 500 mg PO BID OMARI; Protocol Stop: 05/25/18 08:59 Last Admin: 04/07/18 09:12 Dose: 500 mg Fluticasone Propionate (Flonase) 1 spr NS DAILY OMARI Stop: 05/27/18 08:59 Last Admin: 04/07/18 11:53 Dose: Not Given Lorazepam (Ativan) 0.5 mg PO Q4H PRN; Protocol PRN Reason: Anxiety Stop: 05/25/18 00:26 Last Admin: 04/01/18 15:05 Dose: 0.5 mg Magnesium Hydroxide (Milk Of Magnesia) 30 ml PO HS PRN PRN Reason: Constipation Multivitamins/Vitamin C (Theragran) 1 tab PO DAILY OMARI Stop: 05/25/18 08:59 Last Admin: 04/07/18 09:12 Dose: 1 tab Quetiapine Fumarate (Seroquel) 50 mg PO BID [facility]; Protocol Stop: 06/01/18 08:59 Last Admin: 04/07/18 09:12 Dose: 50 mg Zolpidem Tartrate (Ambien) 5 mg PO HS PRN PRN Reason: Insomnia Stop: 05/25/18 00:26 Last Admin: 04/05/18 20:41 Dose: 5 mg General: demented HEENT: NC/AT Neck: Supple Lungs: CTAB Cardiovascular: RRR, Normal S1, Normal S2 Abdomen: soft, non-tender Extremities: clear Neurological: no change Internal Medicine Assmt/Plan - Assessment Assessment: psychosis htn dm copd seizure parkinson's disease - Plan Plan: monitor glucose cpm Nutritional Asmnt/Malnutr-PDOC - Dietary Evaluation Malnutrition Findings (Please click <Entered> for more info): Nutritional Asmnt/Malnutrition Start: 03/28/18 14: 26 Text: Status: Complete Freq: Protocol: Document 03/28/18 14:26 [email or web address] (Rec: 03/28/18 14:31 [email or web address]) Nutritional Asmnt/Malnutrition Patient General Information Nutritional Screening Moderate Risk Diagnosis psychosis nos Pertinent Medical Hx/Surgical Hx DM, asthma, COPD, schizophrenia, bipolar Subjective Information Pt was seen eating in dining room at time of visit. Pt was alert but confused. PO intake is 100% per EMR. Current Diet Order/ Nutrition Support low sodium (2gm), CCHO Pertinent Medications maalox, theragran, seroquel, ambien Pertinent Labs 03/25 glucose 120, alb 3.9, triglycerides 291, cholesterol 203 Nutritional Hx/Data Height 5 ft 8 in Height (Calculated Centimeters) 172.7 Current Weight (lbs) 201 lb Weight (Calculated Kilograms) 91.2 Weight (Calculated Grams) 75589.1 [place] Body Weight 154 Body Mass Index (BMI) 30.5 Weight Status Obese GI Symptoms GI Symptoms None Last BM 03/27 Difficult in: None Food Allergies No Skin Integrity/Comment: intact, ludivina 21 Current %PO Good (75-100%) Estimated Nutritional Goals BEE in Kcals: Adj wt of IBW Calories/Kcals/Kg 25-30 Kcals Calculated 8080-2234 Protein: Adj wt of IBW Protein g/k.8-1 Protein Calculated 60-75 Fluid: ml 7601-9508 (1ml/kcal) Nutritional Problem No current Nutrition Prob Problem N/A Intervention/Recommendation Comments 1. Continue with low sodium ( 2gm) CCHO diet as ordered. 2. Monitor PO intake, wt, labs and skin integrity 3. F/U as low risk in 7 days Expected Outcomes/Goals Expected Outcomes/Goals 1. PO intake to meet at least 75% of nutritional needs. 2. Wt stability, skin to remain intact, labs to approach WNL. Reviewed by Amanda Gloria RD
== END 2018-04-07 15:25 | DRG 885 ==
LOC: ER 19:56 → GERO 23:09
PROVIDERS: ADMIT Psychiatry & Neurology Psychiatry; ATTEND Psychiatry & Neurology Psychiatry
DX: F29 Unspecified psychosis not due to a substance or known physiological condition (principal); E11.9 Type 2 diabetes mellitus without complications; J44.9 Chronic obstructive pulmonary disease, unspecified; F20.9 Schizophrenia, unspecified; F17.210 Nicotine dependence, cigarettes, uncomplicated; I10 Essential (primary) hypertension; G40.909 Epilepsy, unspecified, not intractable, without status epilepticus; G20 Parkinson's disease; F02.80 Dementia in other diseases classified elsewhere, unspecified severity, without behavioral disturbance, psychotic disturbance, mood disturbance, and anxiety; Z88.8 Allergy status to other drugs, medicaments and biological substances
CPT/HCPCS: 36415-UA; 71045-TC; 80053-TC; 80061-TC; 80164-TC; 81003-TC; 82948-90; 83036-90; 83880-TC; 84443-TC; 84484-TC; 85025-TC; 90899; 93005; 94640; 94760; G0410; J7613; Z7610

== ENCOUNTER 2018-09-18 19:17 | Inpatient (IN) | payer MEDICARE, MEDICAID ==
--- NOTE | 2018-09-18 19:32 | ED Physician Chart ---
ED Chief Complaint/HPI - Patient Information Date Seen:: 09/18/18 Time Seen:: 19:20 Chief Complaint:: anorexia History of Present Illness:: Patient has reportedly been refusing to eat and not participating in social activities. Allergies:: Allergies Allergy/AdvReac Type Severity Reaction Status Date / Time clozapine [From Clozaril] Allergy Verified 03/25/18 20:58 haloperidol [From Haldol] Allergy Verified 03/25/18 20:58 Historian:: Patient, EMS Review:: Nurse's Note Reviewed, Transfer documents Reviewed ED Review of Systems - Review of Systems General/Constitutional: No fever, No chills, No weight loss, No weakness, No diaphoresis, No edema, No loss of appetite Skin: No skin lesions, No rash, No bruising Head: No headache, No light-headedness Eyes: No loss of vision, No pain, No diplopia ENT: No earache, No nasal drainage, No sore throat, No tinnitus Neck: No neck pain, No swelling, No thyromegaly, No stiffness, No mass noted Cardio Vascular: No chest pain, No palpitations, No PND, No orthopnea, No edema Pulmonary: No SOB, No cough, No sputum, No wheezing GI: No nausea, No vomiting, No diarrhea, No pain, No melena, No hematochezia, No constipation, No hematemesis, Other (anorexia) G/U: No dysuria, No frequency, No hematuria Musculoskeletal: No bone or joint pain, No back pain, No muscle pain Endocrine: No polyuria, No polydipsia Psychiatric: No prior psych history, No depression, No anxiety, No suicidal ideation Hematopoietic: No bruising, No lymphadenopathy Allergic/Immuno: No urticaria, No angioedema Neurological: No syncope, No focal symptoms, No weakness, No paresthesia, No headache, No seizure, No dizziness, No confusion, No vertigo ED Past Medical History - Past Medical History Past Medical History: HTN, DM, Asthma/COPD, PUD/GERD, Seizures, Other (Parkinson 's disease; cataracts; hyperpituitary; bipolar; anxiety) Family History: None Social History: Non Smoker, No Alcohol Surgical History: None Psychiatricy History: Schizophrenia, Bipolar, Other (paranoid schizophrenia) Medication: Reviewed Family Medical History - Family Member Mother History Unknown: Yes Ethnicity: Unknown Living Status: Unknown Hx Family Cancer: (Unknown) Hx Family Coronary Artery Disease: (Unknown) Hx Family Congestive Heart Failure: (Unknown) Hx Family Hypertension: (Unknown) Hx Family Stroke: (Unknown) Hx Family Diabetes: (Unknown) Hx Family Seizures: (Unknown) Hx Family Dementia: (Unknown) Hx Family AIDS: (Unknown) Hx Family COPD: (Unknown) Hx Family Hepatitis: (Unknown) Hx Family Psychiatric Problems: (Unknown) Hx Family Tuberculosis: (Unknown) ED Physical Exam - Physical Examination General/Constitutional: Awake, Well-developed, well-nourished, Alert, No distress Other Gen/Cons comments:: Alert and oriented to the exact date Head: Atraumatic Eyes: Lids, conjuctiva normal, PERRL Skin: Nl inspection, No rash ENMT: External ears, nose nl, Nasal exam nl Other ENMT comments:: Edentulous Neck: No nuchal rigidity Respiratory: Nl effort/Exclusion, Clear to Auscultation Cardio Vascular: RRR, NL S1 S2 GI: No tenderness/rebounding/guarding Extremities: No tenderness or effusion Neuro/Psych: No focal deficits ED Labs/Radiology/EKG Results - Lab Results Results: Laboratory Results WBC 6.8 Th/cmm (4.8-10.8) 09/18/18 19:40 RBC 2.43 Mil/cmm (3.80-5.80) L 09/18/18 19:40 Hgb 7.5 gm/dL (12-16) L* 09/18/18 19:40 Hct 22.0 % (41.0-60) L 09/18/18 19:40 MCV 90.5 fl (80-99) 09/18/18 19:40 MCH 31.0 pg (27.0-31.0) 09/18/18 19:40 MCHC Differential 34.3 pg (28.0-36.0) 09/18/18 19:40 RDW 21.6 % (11.5-20.0) H 09/18/18 19:40 Plt Count 32 Th/cmm (150-400) L 09/18/18 19:40 MPV 8.6 fl 09/18/18 19:40 Add Manual Diff YES 09/18/18 19:40 Laboratory Results WBC 6.8 Th/cmm (4.8-10.8) 09/18/18 19:40 RBC 2.43 Mil/cmm (3.80-5.80) L 09/18/18 19:40 Hgb 7.5 gm/dL (12-16) L* 09/18/18 19:40 Hct 22.0 % (41.0-60) L 09/18/18 19:40 MCV 90.5 fl (80-99) 09/18/18 19:40 MCH 31.0 pg (27.0-31.0) 09/18/18 19:40 MCHC Differential 34.3 pg (28.0-36.0) 09/18/18 19:40 RDW 21.6 % (11.5-20.0) H 09/18/18 19:40 Plt Count 32 Th/cmm (150-400) L 09/18/18 19:40 MPV 8.6 fl 09/18/18 19:40 Add Manual Diff YES 09/18/18 19:40 Sodium 132 mEq/L (136-145) L 09/18/18 19:40 Potassium 4.1 mEq/L (3.5-5.1) 09/18/18 19:40 Chloride 96 mEq/L (98-107) L 09/18/18 19:40 Carbon Dioxide 28.1 mEq/L (21.0-31.0) 09/18/18 19:40 Anion Gap 12.0 (7.0-16.0) 09/18/18 19:40 BUN 25 mg/dL (7-25) 09/18/18 19:40 Creatinine 0.8 mg/dL (0.7-1.3) 09/18/18 19:40 Est GFR ( Amer) TNP 09/18/18 19:40 Est GFR (Non-Af Amer) TNP 09/18/18 19:40 BUN/Creatinine Ratio 31.3 09/18/18 19:40 Glucose 130 mg/dL (70-105) H 09/18/18 19:40 Calcium 9.5 mg/dL (8.6-10.3) 09/18/18 19:40 Total Bilirubin 0.5 mg/dL (0.3-1.0) 09/18/18 19:40 AST 50 U/L (13-39) H 09/18/18 19:40 ALT 9 U/L (7-52) 09/18/18 19:40 Alkaline Phosphatase 977 U/L (34-104) H 09/18/18 19:40 Total Protein 6.4 gm/dL (6.0-8.3) 09/18/18 19:40 Albumin 3.9 gm/dL (4.2-5.5) L 09/18/18 19:40 Globulin 2.5 gm/dL 09/18/18 19:40 Albumin/Globulin Ratio 1.6 (1.0-1.8) 09/18/18 19:40 Triglycerides 226 mg/dL (<150) H 09/18/18 19:40 Cholesterol 188 mg/dL (<200) 09/18/18 19:40 LDL Cholesterol Direct 95 mg/dL (75-193) 09/18/18 19:40 HDL Cholesterol 52 mg/dL (23-92) 09/18/18 19:40 TSH 2.57 uIU/ml (0.34-5.60) 09/18/18 19:40 - EKG Interpretations Rate & Rhythm: sinus tach rate of 101 [place]: normal Comments:: premature atrial contractions ED Assessment - Assessment General Assessment: I spoke to Dr. Salinas at 2129 making him aware of the patient's anemia. He stated the patient is okay to go to [facility]. ED Septic Shock - . Is Septic Shock (SBP<90, OR Lactate>4 mmol\L) present?: No ED Reassessment (Disposition) - Reassessment Reassessment Condition:: Unchanged - Diagnosis Diagnosis:: Social isolation; schizophrenia; anemia - Patient Disposition Admitted to:: [facility] Spoke to:: Raul Salinas Admitting Medical Physician:: Raul Salinas Admitting Psych Physician:: Nannette Jones Condition at Disposition:: Stable, Unchanged
[2018-09-18 20:04] LABS: MEAN CELL VOLUME 90.5 fl (80-99); MEAN CORPUSCULAR HGB CONC 34.3 pg (28.0-36.0); PLATELET COUNT 32 Th/cmm (150-400); RED BLOOD COUNT 2.43 Mil/cmm (3.80-5.80); RED CELL DISTRIBUTION WIDTH 21.6 % (11.5-20.0); WHITE BLOOD COUNT 6.8 Th/cmm (4.8-10.8)
[2018-09-18 20:06] LABS: ALB/GLOB RATIO 1.6 (1.0-1.8); ALBUMIN 3.9 gm/dL (4.2-5.5); ALKALINE PHOSPHATASE 977 U/L (34-104); BILIRUBIN,TOTAL 0.5 mg/dL (0.3-1.0); BUN - UREA NITROGEN 25 mg/dL (7-25); CALCIUM SERUM 9.5 mg/dL (8.6-10.3); CARBON DIOXIDE 28.1 mEq/L (21.0-31.0); CHLORIDE 96 mEq/L (98-107); CHOLESTEROL 188 mg/dL (<200); CREATININE - SERUM 0.8 mg/dL (0.7-1.3); GLUCOSE 130 mg/dL (70-105); HDL -HIGH DENSITY LIPOPROTEIN 52 mg/dL (23-92); POTASSIUM SERUM 4.1 mEq/L (3.5-5.1); SGOT 50 U/L (13-39); SGPT/ALT 9 U/L (7-52); SODIUM SERUM 132 mEq/L (136-145); TOTAL PROTEIN,SERUM 6.4 gm/dL (6.0-8.3); TRIGLYCERIDES 226 mg/dL (<150)
[2018-09-18 20:23] LABS: HEMOGLOBIN 7.5 gm/dL (12-16)
[2018-09-18 21:35] LABS: BAND NEUTROPHILE 0 % (0-10); LYMPHOCYTE 50 % (20-50); NEUTROPHILS 40 % (40-80)
[2018-09-18 21:36] LABS: ANISOCYTOSIS 1+; BASOPHIL 0 % (0-3); EOSINOPHIL 1 % (0-5); MONOCYTE 9 % (2-10); PLATELET ESTIMATE DECREASED PLATELETS (NORMAL)
[2018-09-18 22:26] VITALS: BP 139/88
[2018-09-18] MEDS ORDERED: Magnesium Hydroxide (MOM) 30 mL UDC PO PRN (22:33)
[2018-09-18] MEDS: Maalox 30 mL Cup PO PRN (23:28)
--- NOTE | 2018-09-19 00:38 | History & Physical ---
ADMIT DATE: 09/18/2018 HISTORY OF PRESENT ILLNESS: The patient is a 73-year-old male with a long history of Parkinson disease, hyperlipidemia, psychosis, admitted to [facility] under Dr. Jones's service for evaluation and treatment. The patient denies any chest pain, shortness of breath, nausea, vomiting, fever or chills. PAST MEDICAL HISTORY: Significant for Parkinson's disease, hyperlipidemia, psychosis. PAST SURGICAL HISTORY: No recent surgery. ALLERGIES: ALLERGY TO CLONAZEPAM AND HALOPERIDOL. SOCIAL HISTORY: No smoking, no alcohol, no drugs. FAMILY HISTORY: Noncontributory. MEDICATIONS: Follow admission reconciliation. REVIEW OF SYSTEMS: RENAL SYSTEM: No history of chronic renal disorder. CARDIOVASCULAR SYSTEM: No coronary artery disease. ENDOCRINE SYSTEM: No diabetes or thyroid problem. GASTROINTESTINAL SYSTEM: No upper or lower GI bleed. NEUROLOGICAL: He has history of Parkinson's disease. SKELETOMUSCULAR SYSTEM: No muscular dystrophy. HEMATOLOGIC SYSTEM: He has anemia. RESPIRATORY SYSTEM: No asthma. GENITOURINARY: No dysuria or hematuria. PHYSICAL EXAMINATION: GENERAL: He is awake, alert, mildly confused. VITAL SIGNS: Temperature is 98.7, heart rate 92, blood pressure 135/80. HEENT: Normocephalic. Pupils reacting to light and accommodation. Sclerae clear. NECK: Supple. Negative for lymphadenopathy, JVD or bruit. CHEST: Entry of air bilaterally normal. No rhonchi or wheezing. HEART: S1, S2 normal. No gallop rhythm. ABDOMEN: Soft, bowel sounds positive. EXTREMITIES: No edema. NEUROLOGIC: Awake, alert, confused. No focal muscle deficits. Cranial nerves 2-12 intact. LABORATORY DATA: White blood cell 6.8, hemoglobin 7.5, hematocrit 22, platelet is ____. Sodium 132, potassium 4.1, BUN is 25, creatinine 0.8. ASSESSMENT: 1. Parkinson disease. 2. Anemia. 3. Thrombocytopenia. 4. Hyperlipidemia. 5. Psychosis. PLAN: The patient admitted to the hospital under Dr. Jones's service. Problem to be addressed during hospitalization is psychosis, anemia and thrombocytopenia. Medical problems addressed at discharge are hyperlipidemia, Parkinson's disease. The patient is medically stable for activity. Thank you Dr. Jones for asking me to see your patient. The patient is a full code. JOB# [id number]
[2018-09-19 01:36] LABS: URINE SOURCE CLEAN C
[2018-09-19 01:39] LABS: URINE BILIRUBIN NEGATIVE (NEGATIVE); URINE BLOOD TRACE (NEGATIVE); URINE GLUCOSE (UA) NEGATIVE (NEGATIVE); URINE KETONE NEGATIVE (NEGATIVE); URINE LEUKOCYTE ESTERASE NEGATIVE (NEGATIVE); URINE MICROSCOPIC INDICATED? YES; URINE NITRATE NEGATIVE (NEGATIVE); URINE PROTEIN TRACE mg/dL (NEGATIVE); URINE UROBILINOGEN 0.2 E.U./dL (0.2 - 1.0)
[2018-09-19 01:44] LABS: URINE CLARITY CLEAR (CLEAR); URINE COLOR YELLOW
[2018-09-19 01:48] LABS: URINE BACTERIA FEW /hpf (NONE SEEN); URINE EPITHELIAL CELLS NONE SEEN /lpf (FEW); URINE RBC 0-2 /hpf (0-5); URINE SPERM FEW /hpf (NONE SEEN); URINE WBC 0-2 /hpf (0-5)
[2018-09-19] MEDS: Carbidopa/Levodopa 10/100 mg Tab PO SCH ×2 (08:50→16:52)
[2018-09-19] MEDS: Multivitamin Tab PO SCH (08:50)
[2018-09-19] MEDS ORDERED: FLUTICASONE IH SCH (09:00)
[2018-09-19] MEDS ORDERED: VILANTEROL IH SCH (09:00)
--- NOTE | 2018-09-19 14:37 | History & Physical ---
ADMIT DATE: 09/19/2018 IDENTIFYING INFORMATION: The patient is a 73-year-old male. HISTORY OF PRESENT ILLNESS: The patient was sent from [place] because of psychosis, agitation. The patient reported that he sleeps well, eats well. He heard voices all the time, did not command hallucinations. He was unable to make safe plan for self-care, but he denies any attempt to harm himself. He apparently has been very , responding, proved to redirection, easily agitated. PAST PSYCHIATRIC HISTORY: Schizophrenia with multiple admissions, unable to give me more details. He denies prior suicide attempt. MEDICAL HISTORY: As per Dr. Salinas, the patient has Parkinson's disease, hyperlipidemia. ALLERGIES: The patient is allergic to CLOZAPINE and HALDOL. MEDICATIONS: The patient has been on Depakote and Seroquel. FAMILY AND SOCIAL HISTORY: The patient is single, never , no children. He has 10th grade education, used to work as a traveling salesman, here he has a history of drug use, could not give me any more details. He reported not as psychotic disorder. No legal problem. He has been living in [place]. MENTAL STATUS EXAMINATION: The patient is appropriately dressed, not very well groomed. He looked disheveled. He was in a wheelchair. He was alert. He was able to tell me the date, being 09/19/2018. He knew he was at [facility], but he is not sure why he is here. He reports that he sleeps well. His appetite varies. He hears voices all the time and he is not sure what they telling him, but they are not command hallucination. He seems to have average intelligence by his history of him being able to work. 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 Immediate memory is poor, cannot concentrate and often carry on a conversation long enough. His insight and judgment is impaired, are not command hallucination, sleep well. Appetite varies and insight about his illness is poor, does not realize has problem. Judgment is poor with his behavior, resistance to care, agitation. 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 MEDICAL DIAGNOSES: As per Dr. Salinas. PLAN: The patient will be continued with the Depakote, Seroquel, adjust medication as needed. ESTIMATED LENGTH OF STAY: 3-7 days. DISCHARGE CRITERIA: Decrease in psychosis, agitation after discharge. [facility]# [id number]
[2018-09-19] MEDS: Budesonide 0.5 Mg/2 mL Ud HHN SCH (19:03)
[2018-09-19] MEDS: Albuterol Nebulizer 2.5mg/3mL HHN SCH (19:03)
--- NOTE | 2018-09-19 19:33 | Internal Medicine Prog Note ---
Internal Medicine Subjective - Subjective Service Date: 09/19/18 Patient seen and examined:: with staff Patient is:: awake, verbal, in bed, talking, confused Per staff patient has:: no adverse event Internal Medicine Objective - Results Result Diagrams: 09/18/18 19:40 09/18/18 19:40 Recent Labs: Laboratory Last Values WBC 6.8 Th/cmm (4.8-10.8) 09/18/18 19:40 RBC 2.43 Mil/cmm (3.80-5.80) L 09/18/18 19:40 Hgb 7.5 gm/dL (12-16) L* 09/18/18 19:40 Hct 22.0 % (41.0-60) L 09/18/18 19:40 MCV 90.5 fl (80-99) 09/18/18 19:40 MCH 31.0 pg (27.0-31.0) 09/18/18 19:40 MCHC Differential 34.3 pg (28.0-36.0) 09/18/18 19:40 RDW 21.6 % (11.5-20.0) H 09/18/18 19:40 Plt Count 32 Th/cmm (150-400) L 09/18/18 19:40 MPV 8.6 fl 09/18/18 19:40 Add Manual Diff YES 09/18/18 19:40 Band Neutrophils % 0 % (0-10) 09/18/18 19:40 Neutrophils (Manual) 40 % (40-80) 09/18/18 19:40 Lymphocytes 50 % (20-50) 09/18/18 19:40 Monocytes 9 % (2-10) 09/18/18 19:40 Eosinophils 1 % (0-5) 09/18/18 19:40 Basophils 0 % (0-3) 09/18/18 19:40 Platelet Estimate DECREASED PLATELETS (NORMAL) 09/18/18 19:40 Anisocytosis 1+ 09/18/18 19:40 Sodium 132 mEq/L (136-145) L 09/18/18 19:40 Potassium 4.1 mEq/L (3.5-5.1) 09/18/18 19:40 Chloride 96 mEq/L (98-107) L 09/18/18 19:40 Carbon Dioxide 28.1 mEq/L (21.0-31.0) 09/18/18 19:40 Anion Gap 12.0 (7.0-16.0) 09/18/18 19:40 BUN 25 mg/dL (7-25) 09/18/18 19:40 Creatinine 0.8 mg/dL (0.7-1.3) 09/18/18 19:40 Est GFR ( Amer) TNP 09/18/18 19:40 Est GFR (Non-Af Amer) TNP 09/18/18 19:40 BUN/Creatinine Ratio 31.3 09/18/18 19:40 Glucose 130 mg/dL (70-105) H 09/18/18 19:40 Calcium 9.5 mg/dL (8.6-10.3) 09/18/18 19:40 Total Bilirubin 0.5 mg/dL (0.3-1.0) 09/18/18 19:40 AST 50 U/L (13-39) H 09/18/18 19:40 ALT 9 U/L (7-52) 09/18/18 19:40 Alkaline Phosphatase 977 U/L (34-104) H 09/18/18 19:40 Total Protein 6.4 gm/dL (6.0-8.3) 09/18/18 19:40 Albumin 3.9 gm/dL (4.2-5.5) L 09/18/18 19:40 Globulin 2.5 gm/dL 09/18/18 19:40 Albumin/Globulin Ratio 1.6 (1.0-1.8) 09/18/18 19:40 Triglycerides 226 mg/dL (<150) H 09/18/18 19:40 Cholesterol 188 mg/dL (<200) 09/18/18 19:40 LDL Cholesterol Direct 95 mg/dL (75-193) 09/18/18 19:40 HDL Cholesterol 52 mg/dL (23-92) 09/18/18 19:40 TSH 2.57 uIU/ml (0.34-5.60) 09/18/18 19:40 Urine Source CLEAN C 09/19/18 01:10 Urine Color YELLOW 09/19/18 01:10 Urine Clarity CLEAR (CLEAR) 09/19/18 01:10 Urine pH 6.0 (4.6 - 8.0) 09/19/18 01:10 Ur Specific [place] 1.020 (1.005-1.030) 09/19/18 01:10 Urine Protein TRACE mg/dL (NEGATIVE) 09/19/18 01:10 Urine Glucose (UA) NEGATIVE mg/dL (NEGATIVE) 09/19/18 01:10 Urine Ketones NEGATIVE mg/dL (NEGATIVE) 09/19/18 01:10 Urine Blood TRACE (NEGATIVE) 09/19/18 01:10 Urine Nitrate NEGATIVE (NEGATIVE) 09/19/18 01:10 Urine Bilirubin NEGATIVE (NEGATIVE) 09/19/18 01:10 Urine Urobilinogen 0.2 E.U./dL (0.2 - 1.0) 09/19/18 01:10 Ur Leukocyte Esterase NEGATIVE (NEGATIVE) 09/19/18 01:10 Urine RBC 0-2 /hpf (0-5) H 09/19/18 01:10 Urine WBC 0-2 /hpf (0-5) 09/19/18 01:10 Ur Epithelial Cells NONE SEEN /lpf (FEW) 09/19/18 01:10 Urine Bacteria FEW /hpf (NONE SEEN) 09/19/18 01:10 Urine Sperm FEW /hpf (NONE SEEN) 09/19/18 01:10 - Physical Exam Vitals and I&O: Vital Signs Temp 98.1 F 09/19/18 14:00 Pulse 92 09/19/18 14:00 Resp 20 09/19/18 14:00 BP 125/70 09/19/18 14:00 Pulse Ox 96 09/19/18 14:00 Intake & Output 09/19/18 09/19/18 09/20/18 06:59 18:59 06:59 Intake Total 120 1200 Balance 120 1200 Weight (lbs) 63.503 kg Intake: Oral 120 1200 Other: # Voids 3 # Bowel Movements 0 1 Weight Source Estimated Active Medications: Current Medications Acetaminophen (Tylenol) 650 mg PO Q4HR PRN PRN Reason: Mild Pain / Temp above 100 Stop: 11/17/18 22:32 Last Admin: 09/18/18 23:27 Dose: 650 mg Al Hydrox/Mg Hydrox/Simethicone (Maalox) 30 ml PO Q4HR PRN PRN Reason: GI DISTRESS Stop: 11/17/18 22:32 Last Admin: 09/18/18 23:28 Dose: 30 ml Albuterol Sulfate (Albuterol 2.5mg/3ml Neb Ud) 2.5 mg HHN Q6HRT [facility]; Protocol Stop: 11/18/18 00:59 Last Admin: 09/19/18 19:03 Dose: Not Given Budesonide (Pulmicort) 0.5 mg HHN BIDRT [facility]; Protocol Stop: 11/18/18 06:59 Last Admin: 09/19/18 19:03 Dose: Not Given Carbidopa/Levodopa (Sinemet 10 Mg-100 Mg) 1 tab PO BID OMARI Stop: 11/18/18 08:59 Last Admin: 09/19/18 16:52 Dose: Not Given Divalproex Sodium (Depakote Er) 500 mg PO BID [facility]; Protocol Stop: 11/18/18 08:59 Last Admin: 09/19/18 16:52 Dose: Not Given Docusate Sodium (Colace) 250 mg PO DAILY [facility] Stop: 11/18/18 08:59 Last Admin: 09/19/18 08:50 Dose: 250 mg Lorazepam (Ativan) 0.5 mg PO Q4HR PRN; Protocol PRN Reason: Anxiety Stop: 10/18/18 22:32 Magnesium Hydroxide (Milk Of Magnesia) 30 ml PO HS PRN PRN Reason: Constipation Multivitamins/Vitamin C (Theragran) 1 tab PO DAILY OMARI Stop: 11/18/18 08:59 Last Admin: 09/19/18 08:50 Dose: 1 tab Quetiapine Fumarate (Seroquel) 50 mg PO BID [facility]; Protocol Stop: 11/18/18 08:59 Last Admin: 09/19/18 16:52 Dose: Not Given Zolpidem Tartrate (Ambien) 5 mg PO HS PRN PRN Reason: Insomnia Stop: 11/17/18 22:32 General: demented HEENT: NC/AT, PERRLA, EOMI, anicteric sclerae, throat clear Neck: Supple, No JVD, No thyromegaly, +2 carotid pulse wo bruit, No LAD Lungs: CTAB Cardiovascular: RRR, Normal S1, Normal S2, without murmur Abdomen: soft, non-tender, non-distended Extremities: clear Neurological: no change Internal Medicine Assmt/Plan - Assessment Assessment: 1.PARKINSON DISEASE. 2.ANEMIA. 3.THROMBOCYTOPENIA. 4.PSYCHOSIS - Plan Plan: CBC IN AM.
[2018-09-20] MEDS: Albuterol Nebulizer 2.5mg/3mL HHN SCH ×2 (01:00→06:57)
[2018-09-20 06:04] LABS: A1C 5.5 % (4.8-5.6)
[2018-09-20] MEDS: Budesonide 0.5 Mg/2 mL Ud HHN SCH (06:57)
[2018-09-20] MEDS: Carbidopa/Levodopa 10/100 mg Tab PO SCH ×2 (09:46→16:52)
[2018-09-20] MEDS: Multivitamin Tab PO SCH (09:46)
[2018-09-20] MEDS: Maalox 30 mL Cup PO PRN (10:43)
[2018-09-20] MEDS ORDERED: Budesonide 0.5 Mg/2 mL Ud HHN PRN (10:47)
[2018-09-20] MEDS ORDERED: Albuterol Nebulizer 2.5mg/3mL HHN PRN (10:47)
--- NOTE | 2018-09-20 16:03 | General Progress Note ---
Subjective - Review of Systems Service Date: 09/20/18 Subjective: resting comfortably no distress Objective - Results Result Diagrams: 09/18/18 19:40 09/18/18 19:40 Recent Labs: Laboratory Last Values WBC 6.8 Th/cmm (4.8-10.8) 09/18/18 19:40 RBC 2.43 Mil/cmm (3.80-5.80) L 09/18/18 19:40 Hgb 7.5 gm/dL (12-16) L* 09/18/18 19:40 Hct 22.0 % (41.0-60) L 09/18/18 19:40 MCV 90.5 fl (80-99) 09/18/18 19:40 MCH 31.0 pg (27.0-31.0) 09/18/18 19:40 MCHC Differential 34.3 pg (28.0-36.0) 09/18/18 19:40 RDW 21.6 % (11.5-20.0) H 09/18/18 19:40 Plt Count 32 Th/cmm (150-400) L 09/18/18 19:40 MPV 8.6 fl 09/18/18 19:40 Add Manual Diff YES 09/18/18 19:40 Band Neutrophils % 0 % (0-10) 09/18/18 19:40 Neutrophils (Manual) 40 % (40-80) 09/18/18 19:40 Lymphocytes 50 % (20-50) 09/18/18 19:40 Monocytes 9 % (2-10) 09/18/18 19:40 Eosinophils 1 % (0-5) 09/18/18 19:40 Basophils 0 % (0-3) 09/18/18 19:40 Platelet Estimate DECREASED PLATELETS (NORMAL) 09/18/18 19:40 Anisocytosis 1+ 09/18/18 19:40 Sodium 132 mEq/L (136-145) L 09/18/18 19:40 Potassium 4.1 mEq/L (3.5-5.1) 09/18/18 19:40 Chloride 96 mEq/L (98-107) L 09/18/18 19:40 Carbon Dioxide 28.1 mEq/L (21.0-31.0) 09/18/18 19:40 Anion Gap 12.0 (7.0-16.0) 09/18/18 19:40 BUN 25 mg/dL (7-25) 09/18/18 19:40 Creatinine 0.8 mg/dL (0.7-1.3) 09/18/18 19:40 Est GFR ( Amer) TNP 09/18/18 19:40 Est GFR (Non-Af Amer) TNP 09/18/18 19:40 BUN/Creatinine Ratio 31.3 09/18/18 19:40 Glucose 130 mg/dL (70-105) H 09/18/18 19:40 Calcium 9.5 mg/dL (8.6-10.3) 09/18/18 19:40 Total Bilirubin 0.5 mg/dL (0.3-1.0) 09/18/18 19:40 AST 50 U/L (13-39) H 09/18/18 19:40 ALT 9 U/L (7-52) 09/18/18 19:40 Alkaline Phosphatase 977 U/L (34-104) H 09/18/18 19:40 Total Protein 6.4 gm/dL (6.0-8.3) 09/18/18 19:40 Albumin 3.9 gm/dL (4.2-5.5) L 09/18/18 19:40 Globulin 2.5 gm/dL 09/18/18 19:40 Albumin/Globulin Ratio 1.6 (1.0-1.8) 09/18/18 19:40 Triglycerides 226 mg/dL (<150) H 09/18/18 19:40 Cholesterol 188 mg/dL (<200) 09/18/18 19:40 LDL Cholesterol Direct 95 mg/dL (75-193) 09/18/18 19:40 HDL Cholesterol 52 mg/dL (23-92) 09/18/18 19:40 TSH 2.57 uIU/ml (0.34-5.60) 09/18/18 19:40 Urine Source CLEAN C 09/19/18 01:10 Urine Color YELLOW 09/19/18 01:10 Urine Clarity CLEAR (CLEAR) 09/19/18 01:10 Urine pH 6.0 (4.6 - 8.0) 09/19/18 01:10 Ur Specific [place] 1.020 (1.005-1.030) 09/19/18 01:10 Urine Protein TRACE mg/dL (NEGATIVE) 09/19/18 01:10 Urine Glucose (UA) NEGATIVE mg/dL (NEGATIVE) 09/19/18 01:10 Urine Ketones NEGATIVE mg/dL (NEGATIVE) 09/19/18 01:10 Urine Blood TRACE (NEGATIVE) 09/19/18 01:10 Urine Nitrate NEGATIVE (NEGATIVE) 09/19/18 01:10 Urine Bilirubin NEGATIVE (NEGATIVE) 09/19/18 01:10 Urine Urobilinogen 0.2 E.U./dL (0.2 - 1.0) 09/19/18 01:10 Ur Leukocyte Esterase NEGATIVE (NEGATIVE) 09/19/18 01:10 Urine RBC 0-2 /hpf (0-5) H 09/19/18 01:10 Urine WBC 0-2 /hpf (0-5) 09/19/18 01:10 Ur Epithelial Cells NONE SEEN /lpf (FEW) 09/19/18 01:10 Urine Bacteria FEW /hpf (NONE SEEN) 09/19/18 01:10 Urine Sperm FEW /hpf (NONE SEEN) 09/19/18 01:10 - Physical Exam Vitals and I&O: Vital Signs Temp 99.5 F 09/20/18 06:00 Pulse 94 09/20/18 07:08 Resp 20 09/20/18 08:00 BP 119/71 09/20/18 06:00 Pulse Ox 92 09/20/18 07:08 Intake & Output 09/19/18 09/20/18 09/20/18 18:59 06:59 18:59 Intake Total 1200 Balance 1200 Intake: Oral 1200 Other: # Bowel Movements 1 Active Medications: Current Medications Acetaminophen (Tylenol) 650 mg PO Q4HR PRN PRN Reason: Mild Pain / Temp above 100 Stop: 11/17/18 22:32 Last Admin: 09/18/18 23:27 Dose: 650 mg Al Hydrox/Mg Hydrox/Simethicone (Maalox) 30 ml PO Q4HR PRN PRN Reason: GI DISTRESS Stop: 11/17/18 22:32 Last Admin: 09/20/18 10:43 Dose: 30 ml Albuterol Sulfate (Albuterol 2.5mg/3ml Neb Ud) 2.5 mg HHN Q6HRT PRN; Protocol PRN Reason: Shortness of Breath Stop: 11/18/18 00:59 Carbidopa/Levodopa (Sinemet 10 Mg-100 Mg) 1 tab PO BID [facility] Stop: 11/18/18 08:59 Last Admin: 09/20/18 09:46 Dose: 1 tab Divalproex Sodium (Depakote Er) 500 mg PO BID [facility]; Protocol Stop: 11/18/18 08:59 Last Admin: 09/20/18 09:46 Dose: 500 mg Docusate Sodium (Colace) 250 mg PO DAILY [facility] Stop: 11/18/18 08:59 Last Admin: 09/20/18 09:46 Dose: 250 mg Lorazepam (Ativan) 0.5 mg PO Q4HR PRN; Protocol PRN Reason: Anxiety Stop: 10/18/18 22:32 Magnesium Hydroxide (Milk Of Magnesia) 30 ml PO HS PRN PRN Reason: Constipation Multivitamins/Vitamin C (Theragran) 1 tab PO DAILY [facility] Stop: 11/18/18 08:59 Last Admin: 09/20/18 09:46 Dose: 1 tab Quetiapine Fumarate (Seroquel) 50 mg PO BID [facility]; Protocol Stop: 11/18/18 08:59 Last Admin: 09/20/18 09:46 Dose: 50 mg Zolpidem Tartrate (Ambien) 5 mg PO HS PRN PRN Reason: Insomnia Stop: 11/17/18 22:32 General: No acute distress HEENT: PERRLA Neck: Supple, JVD Cardiovascular: Regular rate, Normal S1, Normal S2 Lungs: Clear to auscultation Abdomen: Bowel sounds, Soft Assessment/Plan - Assessment Assessment: 1.PARKINSON DISEASE. 2.ANEMIA. 3.THROMBOCYTOPENIA. 4.PSYCHOSIS - Plan Plan: continue current treatment
[2018-09-21] MEDS: Carbidopa/Levodopa 10/100 mg Tab PO SCH ×2 (09:11→16:45)
[2018-09-21] MEDS: Multivitamin Tab PO SCH (09:11)
--- NOTE | 2018-09-21 13:13 | General Progress Note ---
Subjective - Review of Systems Service Date: 09/21/18 Subjective: resting comfortably no distress Objective - Results Result Diagrams: 09/18/18 19:40 09/18/18 19:40 Recent Labs: Laboratory Last Values WBC 6.8 Th/cmm (4.8-10.8) 09/18/18 19:40 RBC 2.43 Mil/cmm (3.80-5.80) L 09/18/18 19:40 Hgb 7.5 gm/dL (12-16) L* 09/18/18 19:40 Hct 22.0 % (41.0-60) L 09/18/18 19:40 MCV 90.5 fl (80-99) 09/18/18 19:40 MCH 31.0 pg (27.0-31.0) 09/18/18 19:40 MCHC Differential 34.3 pg (28.0-36.0) 09/18/18 19:40 RDW 21.6 % (11.5-20.0) H 09/18/18 19:40 Plt Count 32 Th/cmm (150-400) L 09/18/18 19:40 MPV 8.6 fl 09/18/18 19:40 Add Manual Diff YES 09/18/18 19:40 Band Neutrophils % 0 % (0-10) 09/18/18 19:40 Neutrophils (Manual) 40 % (40-80) 09/18/18 19:40 Lymphocytes 50 % (20-50) 09/18/18 19:40 Monocytes 9 % (2-10) 09/18/18 19:40 Eosinophils 1 % (0-5) 09/18/18 19:40 Basophils 0 % (0-3) 09/18/18 19:40 Platelet Estimate DECREASED PLATELETS (NORMAL) 09/18/18 19:40 Anisocytosis 1+ 09/18/18 19:40 Sodium 132 mEq/L (136-145) L 09/18/18 19:40 Potassium 4.1 mEq/L (3.5-5.1) 09/18/18 19:40 Chloride 96 mEq/L (98-107) L 09/18/18 19:40 Carbon Dioxide 28.1 mEq/L (21.0-31.0) 09/18/18 19:40 Anion Gap 12.0 (7.0-16.0) 09/18/18 19:40 BUN 25 mg/dL (7-25) 09/18/18 19:40 Creatinine 0.8 mg/dL (0.7-1.3) 09/18/18 19:40 Est GFR ( Amer) TNP 09/18/18 19:40 Est GFR (Non-Af Amer) TNP 09/18/18 19:40 BUN/Creatinine Ratio 31.3 09/18/18 19:40 Glucose 130 mg/dL (70-105) H 09/18/18 19:40 Calcium 9.5 mg/dL (8.6-10.3) 09/18/18 19:40 Total Bilirubin 0.5 mg/dL (0.3-1.0) 09/18/18 19:40 AST 50 U/L (13-39) H 09/18/18 19:40 ALT 9 U/L (7-52) 09/18/18 19:40 Alkaline Phosphatase 977 U/L (34-104) H 09/18/18 19:40 Total Protein 6.4 gm/dL (6.0-8.3) 09/18/18 19:40 Albumin 3.9 gm/dL (4.2-5.5) L 09/18/18 19:40 Globulin 2.5 gm/dL 09/18/18 19:40 Albumin/Globulin Ratio 1.6 (1.0-1.8) 09/18/18 19:40 Triglycerides 226 mg/dL (<150) H 09/18/18 19:40 Cholesterol 188 mg/dL (<200) 09/18/18 19:40 LDL Cholesterol Direct 95 mg/dL (75-193) 09/18/18 19:40 HDL Cholesterol 52 mg/dL (23-92) 09/18/18 19:40 TSH 2.57 uIU/ml (0.34-5.60) 09/18/18 19:40 Urine Source CLEAN C 09/19/18 01:10 Urine Color YELLOW 09/19/18 01:10 Urine Clarity CLEAR (CLEAR) 09/19/18 01:10 Urine pH 6.0 (4.6 - 8.0) 09/19/18 01:10 Ur Specific [place] 1.020 (1.005-1.030) 09/19/18 01:10 Urine Protein TRACE mg/dL (NEGATIVE) 09/19/18 01:10 Urine Glucose (UA) NEGATIVE mg/dL (NEGATIVE) 09/19/18 01:10 Urine Ketones NEGATIVE mg/dL (NEGATIVE) 09/19/18 01:10 Urine Blood TRACE (NEGATIVE) 09/19/18 01:10 Urine Nitrate NEGATIVE (NEGATIVE) 09/19/18 01:10 Urine Bilirubin NEGATIVE (NEGATIVE) 09/19/18 01:10 Urine Urobilinogen 0.2 E.U./dL (0.2 - 1.0) 09/19/18 01:10 Ur Leukocyte Esterase NEGATIVE (NEGATIVE) 09/19/18 01:10 Urine RBC 0-2 /hpf (0-5) H 09/19/18 01:10 Urine WBC 0-2 /hpf (0-5) 09/19/18 01:10 Ur Epithelial Cells NONE SEEN /lpf (FEW) 09/19/18 01:10 Urine Bacteria FEW /hpf (NONE SEEN) 09/19/18 01:10 Urine Sperm FEW /hpf (NONE SEEN) 09/19/18 01:10 - Physical Exam Vitals and I&O: Vital Signs Temp 98.9 F 09/20/18 20:00 Pulse 105 09/20/18 20:00 Resp 18 09/21/18 08:26 BP 137/75 09/20/18 20:00 Pulse Ox 97 09/20/18 20:00 Intake & Output 09/20/18 09/21/18 09/21/18 18:59 06:59 18:59 Intake Total 950 600 Balance 950 600 Intake: Oral 950 600 Other: # Voids 3 2 # Bowel Movements 1 1 Active Medications: Current Medications Acetaminophen (Tylenol) 650 mg PO Q4HR PRN PRN Reason: Mild Pain / Temp above 100 Stop: 11/17/18 22:32 Last Admin: 09/18/18 23:27 Dose: 650 mg Al Hydrox/Mg Hydrox/Simethicone (Maalox) 30 ml PO Q4HR PRN PRN Reason: GI DISTRESS Stop: 11/17/18 22:32 Last Admin: 09/20/18 10:43 Dose: 30 ml Albuterol Sulfate (Albuterol 2.5mg/3ml Neb Ud) 2.5 mg HHN Q6HRT PRN; Protocol PRN Reason: Shortness of Breath Stop: 11/18/18 00:59 Carbidopa/Levodopa (Sinemet 10 Mg-100 Mg) 1 tab PO BID [facility] Stop: 11/18/18 08:59 Last Admin: 09/21/18 09:11 Dose: 1 tab Divalproex Sodium (Depakote Er) 500 mg PO BID [facility]; Protocol Stop: 11/18/18 08:59 Last Admin: 09/21/18 09:11 Dose: 500 mg Docusate Sodium (Colace) 250 mg PO DAILY [facility] Stop: 11/18/18 08:59 Last Admin: 09/21/18 09:11 Dose: 250 mg Lorazepam (Ativan) 0.5 mg PO Q4HR PRN; Protocol PRN Reason: Anxiety Stop: 10/18/18 22:32 Magnesium Hydroxide (Milk Of Magnesia) 30 ml PO HS PRN PRN Reason: Constipation Multivitamins/Vitamin C (Theragran) 1 tab PO DAILY [facility] Stop: 11/18/18 08:59 Last Admin: 09/21/18 09:11 Dose: 1 tab Quetiapine Fumarate (Seroquel) 50 mg PO BID [facility]; Protocol Stop: 11/18/18 08:59 Last Admin: 09/21/18 09:11 Dose: 50 mg Zolpidem Tartrate (Ambien) 5 mg PO HS PRN PRN Reason: Insomnia Stop: 11/17/18 22:32 General: No acute distress HEENT: PERRLA Neck: Supple, JVD Cardiovascular: Regular rate, Normal S1, Normal S2 Lungs: Clear to auscultation Abdomen: Bowel sounds, Soft Assessment/Plan - Assessment Assessment: 1.PARKINSON DISEASE. 2.ANEMIA. 3.THROMBOCYTOPENIA. 4.PSYCHOSIS - Plan Plan: continue current treatment
--- NOTE | 2018-09-21 15:00 | Progress Notes ---
DATE: 09/20/2018 SUBJECTIVE: The patient was seen and evaluated. The patient's chart reviewed. This is Dr. Albright covering for Dr. Jones. IDENTIFYING DATA: A 73-year-old male brought in here from [place] for agitation and psychotic behavior. Medication reconciliation and medication reviewed. Depakote 500 mg p.o. b.i.d. Seroquel 50 mg p.o. b.i.d. Today on [id number] evaluation, the patient is in his room, is avoidant and needing a lot of encouragement to participate in interview. MENTAL STATUS EXAMINATION: Easily agitated, irritable. ASSESSMENT AND PLAN: Irritable, agitated, refusing interview. We will continue monitoring and evaluating with the current medication regimen that recently was increased to target the patient's ongoing agitated behavior. JOB# [id number]
[2018-09-21] MEDS: Maalox 30 mL Cup PO PRN (18:35)
--- NOTE | 2018-09-22 04:01 | Progress Notes ---
DATE: 09/21/[address] Jones. Nursing staff reported the patient mostly has been isolating in his room. Today on [id number] evaluation, the patient denies hearing voices, although poor historian. He reports feeling calmer, anxious. EXAMINATION: Intermittent, combative, needs redirection, easily agitated, isolated. ASSESSMENT AND PLAN: The patient is a 73-year-old male with a history of dementia with behavior disturbances. Continue with the recent adjustments of the Seroquel to target the patient's residual voices. JOB# [id number]
[2018-09-22] MEDS: Multivitamin Tab PO SCH (09:06)
[2018-09-22] MEDS: Carbidopa/Levodopa 10/100 mg Tab PO SCH ×2 (09:06→17:14)
--- NOTE | 2018-09-22 20:40 | Internal Medicine Prog Note ---
Internal Medicine Subjective - Subjective Service Date: 09/22/18 Patient seen and examined:: without staff (HE IS DOING WELL) Patient is:: awake, verbal, in bed, talking, confused Per staff patient has:: no adverse event Internal Medicine Objective - Results Result Diagrams: 09/18/18 19:40 09/18/18 19:40 Recent Labs: Laboratory Last Values WBC 6.8 Th/cmm (4.8-10.8) 09/18/18 19:40 RBC 2.43 Mil/cmm (3.80-5.80) L 09/18/18 19:40 Hgb 7.5 gm/dL (12-16) L* 09/18/18 19:40 Hct 22.0 % (41.0-60) L 09/18/18 19:40 MCV 90.5 fl (80-99) 09/18/18 19:40 MCH 31.0 pg (27.0-31.0) 09/18/18 19:40 MCHC Differential 34.3 pg (28.0-36.0) 09/18/18 19:40 RDW 21.6 % (11.5-20.0) H 09/18/18 19:40 Plt Count 32 Th/cmm (150-400) L 09/18/18 19:40 MPV 8.6 fl 09/18/18 19:40 Add Manual Diff YES 09/18/18 19:40 Band Neutrophils % 0 % (0-10) 09/18/18 19:40 Neutrophils (Manual) 40 % (40-80) 09/18/18 19:40 Lymphocytes 50 % (20-50) 09/18/18 19:40 Monocytes 9 % (2-10) 09/18/18 19:40 Eosinophils 1 % (0-5) 09/18/18 19:40 Basophils 0 % (0-3) 09/18/18 19:40 Platelet Estimate DECREASED PLATELETS (NORMAL) 09/18/18 19:40 Anisocytosis 1+ 09/18/18 19:40 Sodium 132 mEq/L (136-145) L 09/18/18 19:40 Potassium 4.1 mEq/L (3.5-5.1) 09/18/18 19:40 Chloride 96 mEq/L (98-107) L 09/18/18 19:40 Carbon Dioxide 28.1 mEq/L (21.0-31.0) 09/18/18 19:40 Anion Gap 12.0 (7.0-16.0) 09/18/18 19:40 BUN 25 mg/dL (7-25) 09/18/18 19:40 Creatinine 0.8 mg/dL (0.7-1.3) 09/18/18 19:40 Est GFR ( Amer) TNP 09/18/18 19:40 Est GFR (Non-Af Amer) TNP 09/18/18 19:40 BUN/Creatinine Ratio 31.3 09/18/18 19:40 Glucose 130 mg/dL (70-105) H 09/18/18 19:40 Calcium 9.5 mg/dL (8.6-10.3) 09/18/18 19:40 Total Bilirubin 0.5 mg/dL (0.3-1.0) 09/18/18 19:40 AST 50 U/L (13-39) H 09/18/18 19:40 ALT 9 U/L (7-52) 09/18/18 19:40 Alkaline Phosphatase 977 U/L (34-104) H 09/18/18 19:40 Total Protein 6.4 gm/dL (6.0-8.3) 09/18/18 19:40 Albumin 3.9 gm/dL (4.2-5.5) L 09/18/18 19:40 Globulin 2.5 gm/dL 09/18/18 19:40 Albumin/Globulin Ratio 1.6 (1.0-1.8) 09/18/18 19:40 Triglycerides 226 mg/dL (<150) H 09/18/18 19:40 Cholesterol 188 mg/dL (<200) 09/18/18 19:40 LDL Cholesterol Direct 95 mg/dL (75-193) 09/18/18 19:40 HDL Cholesterol 52 mg/dL (23-92) 09/18/18 19:40 TSH 2.57 uIU/ml (0.34-5.60) 09/18/18 19:40 Urine Source CLEAN C 09/19/18 01:10 Urine Color YELLOW 09/19/18 01:10 Urine Clarity CLEAR (CLEAR) 09/19/18 01:10 Urine pH 6.0 (4.6 - 8.0) 09/19/18 01:10 Ur Specific [place] 1.020 (1.005-1.030) 09/19/18 01:10 Urine Protein TRACE mg/dL (NEGATIVE) 09/19/18 01:10 Urine Glucose (UA) NEGATIVE mg/dL (NEGATIVE) 09/19/18 01:10 Urine Ketones NEGATIVE mg/dL (NEGATIVE) 09/19/18 01:10 Urine Blood TRACE (NEGATIVE) 09/19/18 01:10 Urine Nitrate NEGATIVE (NEGATIVE) 09/19/18 01:10 Urine Bilirubin NEGATIVE (NEGATIVE) 09/19/18 01:10 Urine Urobilinogen 0.2 E.U./dL (0.2 - 1.0) 09/19/18 01:10 Ur Leukocyte Esterase NEGATIVE (NEGATIVE) 09/19/18 01:10 Urine RBC 0-2 /hpf (0-5) H 09/19/18 01:10 Urine WBC 0-2 /hpf (0-5) 09/19/18 01:10 Ur Epithelial Cells NONE SEEN /lpf (FEW) 09/19/18 01:10 Urine Bacteria FEW /hpf (NONE SEEN) 09/19/18 01:10 Urine Sperm FEW /hpf (NONE SEEN) 09/19/18 01:10 RPR NONREACTIVE (NONREACTIVE) 09/18/18 19:40 - Physical Exam Vitals and I&O: Vital Signs Temp 99.1 F 09/22/18 20:08 Pulse 102 09/22/18 20:08 Resp 19 09/22/18 20:08 BP 109/57 09/22/18 20:08 Pulse Ox 92 09/22/18 20:08 Intake & Output 09/22/18 09/22/18 09/23/18 06:59 18:59 06:59 Intake Total 240 950 180 Balance 240 950 180 Intake: Oral 240 950 180 Other: # Voids 2 5 3 # Bowel Movements 1 1 Active Medications: Current Medications Acetaminophen (Tylenol) 650 mg PO Q4HR PRN PRN Reason: Mild Pain / Temp above 100 Stop: 11/17/18 22:32 Last Admin: 09/18/18 23:27 Dose: 650 mg Al Hydrox/Mg Hydrox/Simethicone (Maalox) 30 ml PO Q4HR PRN PRN Reason: GI DISTRESS Stop: 11/17/18 22:32 Last Admin: 09/21/18 18:35 Dose: 30 ml Albuterol Sulfate (Albuterol 2.5mg/3ml Neb Ud) 2.5 mg HHN Q6HRT PRN; Protocol PRN Reason: Shortness of Breath Stop: 11/18/18 00:59 Carbidopa/Levodopa (Sinemet 10 Mg-100 Mg) 1 tab PO BID [facility] Stop: 11/18/18 08:59 Last Admin: 09/22/18 17:14 Dose: Not Given Divalproex Sodium (Depakote Er) 500 mg PO BID [facility]; Protocol Stop: 11/18/18 08:59 Last Admin: 09/22/18 17:14 Dose: Not Given Docusate Sodium (Colace) 250 mg PO DAILY [facility] Stop: 11/18/18 08:59 Last Admin: 09/22/18 09:06 Dose: Not Given Lorazepam (Ativan) 0.5 mg PO Q4HR PRN; Protocol PRN Reason: Anxiety Stop: 10/18/18 22:32 Magnesium Hydroxide (Milk Of Magnesia) 30 ml PO HS PRN PRN Reason: Constipation Multivitamins/Vitamin C (Theragran) 1 tab PO DAILY [facility] Stop: 11/18/18 08:59 Last Admin: 09/22/18 09:06 Dose: 1 tab Quetiapine Fumarate (Seroquel) 50 mg PO BID [facility]; Protocol Stop: 11/18/18 08:59 Last Admin: 09/22/18 17:14 Dose: Not Given Zolpidem Tartrate (Ambien) 5 mg PO HS PRN PRN Reason: Insomnia Stop: 11/17/18 22:32 General: demented HEENT: NC/AT, PERRLA, EOMI, anicteric sclerae, throat clear Neck: Supple, No JVD, No thyromegaly, +2 carotid pulse wo bruit, No LAD Lungs: CTAB Cardiovascular: RRR, Normal S1, Normal S2, without murmur Abdomen: soft, non-tender, non-distended Extremities: clear Neurological: no change Internal Medicine Assmt/Plan - Assessment Assessment: 1.PARKINSON DISEASE. 2.ANEMIA. 3.THROMBOCYTOPENIA. 4.PSYCHOSIS - Plan Plan: CONTINUE ON CURRENT MEDICATION AND DIET. Nutritional Asmnt/Malnutr-PDOC - Dietary Evaluation Malnutrition Findings (Please click <Entered> for more info): Nutritional Asmnt/Malnutrition Start: 09/22/18 16: 00 Text: Status: Complete Freq: Protocol: Document 09/22/18 16:00 CHET (Rec: 09/22/18 16:03 CHET [email or web address]) Nutritional Asmnt/Malnutrition Patient General Information Nutritional Screening Moderate Risk Diagnosis PSYCHOSIS Pertinent Medical Hx/Surgical Hx PARKINSONS DISEASE, HYPERLIPIDEMIA, PSYCHOSIS Subjective Information PT IS A 73 YEAR OLD MALE FROM [facility] ADMITTED ON 09/18 D/T REFUSAL TO EAT AND NOT PARTICIPATING IN ACTIVITIES. HT: 59 WT: 140 LB (63.64 KG) BMI: 20.67 (NORMAL) GI: SOFT, NON-TENDER BM: 09/22 X1 I/O: 1190/NOT NOTED SKIN: WNL, INTACT, BRUISE RT KNEE TALIB: 17 DIET ORDER: CARDIAC, CCHO 45GM , CHOPPED, MARIE ESTIMATED ENERGY NEEDS: ( GERIATRIC, CBW) [id number] KCALS (25-30 KCALS/ KG) 63-76 G PRO (1.0-1.2 G/KG) 8978-7928 ML (25-30 ML/KG) PT PO INTAKE: 75-100% MEALS PER MEAL/NUTRITION ACTIVITY RECORD. DIETARY IS CURRENTLY PROVIDING AN [id number] KCALS AND 82 GM PRO. PER PT PO INTAKE, THIS IS PROVIDING AN ESTIMATED 1522 KCALS AND 72 GM PRO, TO MEET 96% KCAL AND 100 % PRO NEEDS ADEQUATE. Current Diet Order/ Nutrition Support CARDIAC, CCHO 45GM, CHOPPED, MARIE Pertinent Medications MAALOX (PRN), ALBUTEROL (PRN), COLACE, MOM (PRN), THEREGRAN Pertinent Labs 09/18: HGB/HCT 7.5/22.0, NA 132 , GLUCOSE 130, AST 50, ALK PHOS 977, ALB 3.9 Nutritional Hx/Data Height 1.75 m Height (Calculated Centimeters) 175.3 Current Weight (lbs) 63.503 kg Weight (Calculated Kilograms) 63.5 Weight (Calculated Grams) 89302.9 [place] Body Weight 160 % [place] Body Weight 88 Body Mass Index (BMI) 20.7 Weight Status Approriate GI Symptoms Last BM 09/22 X1 Skin Integrity/Comment: WNL, INTACT, BRUISE RT KNEE TALIB: 17 Estimated Nutritional Goals BEE in Kcals: Using Current wt Calories/Kcals/Kg 25-30 Kcals Calculated 0942-0302 Protein: Using Current wt Protein g/k.0-1.2 Protein Calculated 63-76 Fluid: ml 6787-4229 ML (25-30 ML/KG) Nutritional Problem No current Nutrition Prob Problem NO NUTRITION DIAGNOSIS AT THIS TIME. Etiology N/A Signs/Symptoms: N/A Malnutrition Related to Morbid Obesity Malnutrition related to morbid obesity No Intervention/Recommendation Comments [facility], CH[facility], MARIE DIET ORDERED. Expected Outcomes/Goals Expected Outcomes/Goals 1. PO INTAKE TO CONTINUE TO MEET > 75% OF NUTRITIONAL NEEDS. 2. MONITOR PO INTAKE, WT, NUTRITION RELATED LABS AND SKIN INTEGRITY. 3. F/U LOW RISK IN 7 DAYS, 09/29
--- NOTE | 2018-09-22 23:31 | Progress Notes ---
DATE: 09/22/2018 SUBJECTIVE: Case was discussed with staff of the patient, reviewed records. The patient continues to be confused, continues to be combative at times, needing redirection, very easily agitated, intrusive. He continues to be a poor historian, unable to make safe plan for self-care. He is unpredictable and impulsive. He has Parkinson's disease and he is on Sinemet. He is on Seroquel 50 mg twice a day with no side effects, no sedation, no nausea, and no extrapyramidal symptoms. We will continue to work with the patient in group therapy, milieu therapy, and adjust the medications as needed. JOB# [id number]
[2018-09-23] MEDS: Carbidopa/Levodopa 10/100 mg Tab PO SCH ×2 (09:03→17:38)
[2018-09-23] MEDS: Multivitamin Tab PO SCH (09:03)
--- NOTE | 2018-09-23 20:29 | Internal Medicine Prog Note ---
Internal Medicine Subjective - Subjective Service Date: 09/23/18 Patient seen and examined:: without staff (HE IS DOING WELL) Patient is:: awake, verbal, in bed, talking, confused Per staff patient has:: no adverse event Internal Medicine Objective - Results Result Diagrams: 09/18/18 19:40 09/18/18 19:40 Recent Labs: Laboratory Last Values WBC 6.8 Th/cmm (4.8-10.8) 09/18/18 19:40 RBC 2.43 Mil/cmm (3.80-5.80) L 09/18/18 19:40 Hgb 7.5 gm/dL (12-16) L* 09/18/18 19:40 Hct 22.0 % (41.0-60) L 09/18/18 19:40 MCV 90.5 fl (80-99) 09/18/18 19:40 MCH 31.0 pg (27.0-31.0) 09/18/18 19:40 MCHC Differential 34.3 pg (28.0-36.0) 09/18/18 19:40 RDW 21.6 % (11.5-20.0) H 09/18/18 19:40 Plt Count 32 Th/cmm (150-400) L 09/18/18 19:40 MPV 8.6 fl 09/18/18 19:40 Add Manual Diff YES 09/18/18 19:40 Band Neutrophils % 0 % (0-10) 09/18/18 19:40 Neutrophils (Manual) 40 % (40-80) 09/18/18 19:40 Lymphocytes 50 % (20-50) 09/18/18 19:40 Monocytes 9 % (2-10) 09/18/18 19:40 Eosinophils 1 % (0-5) 09/18/18 19:40 Basophils 0 % (0-3) 09/18/18 19:40 Platelet Estimate DECREASED PLATELETS (NORMAL) 09/18/18 19:40 Anisocytosis 1+ 09/18/18 19:40 Sodium 132 mEq/L (136-145) L 09/18/18 19:40 Potassium 4.1 mEq/L (3.5-5.1) 09/18/18 19:40 Chloride 96 mEq/L (98-107) L 09/18/18 19:40 Carbon Dioxide 28.1 mEq/L (21.0-31.0) 09/18/18 19:40 Anion Gap 12.0 (7.0-16.0) 09/18/18 19:40 BUN 25 mg/dL (7-25) 09/18/18 19:40 Creatinine 0.8 mg/dL (0.7-1.3) 09/18/18 19:40 Est GFR ( Amer) TNP 09/18/18 19:40 Est GFR (Non-Af Amer) TNP 09/18/18 19:40 BUN/Creatinine Ratio 31.3 09/18/18 19:40 Glucose 130 mg/dL (70-105) H 09/18/18 19:40 Calcium 9.5 mg/dL (8.6-10.3) 09/18/18 19:40 Total Bilirubin 0.5 mg/dL (0.3-1.0) 09/18/18 19:40 AST 50 U/L (13-39) H 09/18/18 19:40 ALT 9 U/L (7-52) 09/18/18 19:40 Alkaline Phosphatase 977 U/L (34-104) H 09/18/18 19:40 Total Protein 6.4 gm/dL (6.0-8.3) 09/18/18 19:40 Albumin 3.9 gm/dL (4.2-5.5) L 09/18/18 19:40 Globulin 2.5 gm/dL 09/18/18 19:40 Albumin/Globulin Ratio 1.6 (1.0-1.8) 09/18/18 19:40 Triglycerides 226 mg/dL (<150) H 09/18/18 19:40 Cholesterol 188 mg/dL (<200) 09/18/18 19:40 LDL Cholesterol Direct 95 mg/dL (75-193) 09/18/18 19:40 HDL Cholesterol 52 mg/dL (23-92) 09/18/18 19:40 TSH 2.57 uIU/ml (0.34-5.60) 09/18/18 19:40 Urine Source CLEAN C 09/19/18 01:10 Urine Color YELLOW 09/19/18 01:10 Urine Clarity CLEAR (CLEAR) 09/19/18 01:10 Urine pH 6.0 (4.6 - 8.0) 09/19/18 01:10 Ur Specific [place] 1.020 (1.005-1.030) 09/19/18 01:10 Urine Protein TRACE mg/dL (NEGATIVE) 09/19/18 01:10 Urine Glucose (UA) NEGATIVE mg/dL (NEGATIVE) 09/19/18 01:10 Urine Ketones NEGATIVE mg/dL (NEGATIVE) 09/19/18 01:10 Urine Blood TRACE (NEGATIVE) 09/19/18 01:10 Urine Nitrate NEGATIVE (NEGATIVE) 09/19/18 01:10 Urine Bilirubin NEGATIVE (NEGATIVE) 09/19/18 01:10 Urine Urobilinogen 0.2 E.U./dL (0.2 - 1.0) 09/19/18 01:10 Ur Leukocyte Esterase NEGATIVE (NEGATIVE) 09/19/18 01:10 Urine RBC 0-2 /hpf (0-5) H 09/19/18 01:10 Urine WBC 0-2 /hpf (0-5) 09/19/18 01:10 Ur Epithelial Cells NONE SEEN /lpf (FEW) 09/19/18 01:10 Urine Bacteria FEW /hpf (NONE SEEN) 09/19/18 01:10 Urine Sperm FEW /hpf (NONE SEEN) 09/19/18 01:10 RPR NONREACTIVE (NONREACTIVE) 09/18/18 19:40 - Physical Exam Vitals and I&O: Vital Signs Temp 99.3 F 09/23/18 15:04 Pulse 111 09/23/18 15:04 Resp 22 09/23/18 15:04 BP 119/60 09/23/18 15:04 Pulse Ox 93 09/23/18 15:04 Intake & Output 09/23/18 09/23/18 09/24/18 06:59 18:59 06:59 Intake Total 240 Balance 240 Intake: Oral 240 Other: # Voids 2 # Bowel Movements 0 Active Medications: Current Medications Acetaminophen (Tylenol) 650 mg PO Q4HR PRN PRN Reason: Mild Pain / Temp above 100 Stop: 11/17/18 22:32 Last Admin: 09/18/18 23:27 Dose: 650 mg Al Hydrox/Mg Hydrox/Simethicone (Maalox) 30 ml PO Q4HR PRN PRN Reason: GI DISTRESS Stop: 11/17/18 22:32 Last Admin: 09/21/18 18:35 Dose: 30 ml Albuterol Sulfate (Albuterol 2.5mg/3ml Neb Ud) 2.5 mg HHN Q6HRT PRN; Protocol PRN Reason: Shortness of Breath Stop: 11/18/18 00:59 Carbidopa/Levodopa (Sinemet 10 Mg-100 Mg) 1 tab PO BID [facility] Stop: 11/18/18 08:59 Last Admin: 09/23/18 17:38 Dose: Not Given Divalproex Sodium (Depakote Er) 500 mg PO BID [facility]; Protocol Stop: 11/18/18 08:59 Last Admin: 09/23/18 17:38 Dose: 500 mg Docusate Sodium (Colace) 250 mg PO DAILY [facility] Stop: 11/18/18 08:59 Last Admin: 09/23/18 09:04 Dose: Not Given Lorazepam (Ativan) 0.5 mg PO Q4HR PRN; Protocol PRN Reason: Anxiety Stop: 10/18/18 22:32 Magnesium Hydroxide (Milk Of Magnesia) 30 ml PO HS PRN PRN Reason: Constipation Multivitamins/Vitamin C (Theragran) 1 tab PO DAILY [facility] Stop: 11/18/18 08:59 Last Admin: 09/23/18 09:03 Dose: 1 tab Quetiapine Fumarate (Seroquel) 50 mg PO BID [facility]; Protocol Stop: 11/18/18 08:59 Last Admin: 09/23/18 17:38 Dose: 50 mg Zolpidem Tartrate (Ambien) 5 mg PO HS PRN PRN Reason: Insomnia Stop: 11/17/18 22:32 General: demented HEENT: NC/AT, PERRLA, EOMI, anicteric sclerae, throat clear Neck: Supple, No JVD, No thyromegaly, +2 carotid pulse wo bruit, No LAD Lungs: CTAB Cardiovascular: RRR, Normal S1, Normal S2, without murmur Abdomen: soft, non-tender, non-distended Extremities: clear Neurological: no change Internal Medicine Assmt/Plan - Assessment Assessment: 1.PARKINSON DISEASE. 2.ANEMIA. 3.THROMBOCYTOPENIA. 4.PSYCHOSIS - Plan Plan: CONTINUE ON CURRENT MEDICATION AND DIET. Nutritional Asmnt/Malnutr-PDOC - Dietary Evaluation Malnutrition Findings (Please click <Entered> for more info): Nutritional Asmnt/Malnutrition Start: 09/22/18 16: 00 Text: Status: Complete Freq: Protocol: Document 09/22/18 16:00 CHET (Rec: 09/22/18 16:03 CHET [email or web address]) Nutritional Asmnt/Malnutrition Patient General Information Nutritional Screening Moderate Risk Diagnosis PSYCHOSIS Pertinent Medical Hx/Surgical Hx PARKINSONS DISEASE, HYPERLIPIDEMIA, PSYCHOSIS Subjective Information PT IS A 73 YEAR OLD MALE FROM [facility] ADMITTED ON 09/18 D/T REFUSAL TO EAT AND NOT PARTICIPATING IN ACTIVITIES. HT: 59 WT: 140 LB (63.64 KG) BMI: 20.67 (NORMAL) GI: SOFT, NON-TENDER BM: 09/22 X1 I/O: 1190/NOT NOTED SKIN: WNL, INTACT, BRUISE RT KNEE TALIB: 17 DIET ORDER: CARDIAC, CCHO 45GM , CHOPPED, MARIE ESTIMATED ENERGY NEEDS: ( GERIATRIC, CBW) [id number] KCALS (25-30 KCALS/ KG) 63-76 G PRO (1.0-1.2 G/KG) 7853-4838 ML (25-30 ML/KG) PT PO INTAKE: 75-100% MEALS PER MEAL/NUTRITION ACTIVITY RECORD. DIETARY IS CURRENTLY PROVIDING AN [id number] KCALS AND 82 GM PRO. PER PT PO INTAKE, THIS IS PROVIDING AN ESTIMATED 1522 KCALS AND 72 GM PRO, TO MEET 96% KCAL AND 100 % PRO NEEDS ADEQUATE. Current Diet Order/ Nutrition Support CARDIAC, CCHO 45GM, CHOPPED, MARIE Pertinent Medications MAALOX (PRN), ALBUTEROL (PRN), COLACE, MOM (PRN), THEREGRAN Pertinent Labs 09/18: HGB/HCT 7.5/22.0, NA 132 , GLUCOSE 130, AST 50, ALK PHOS 977, ALB 3.9 Nutritional Hx/Data Height 1.75 m Height (Calculated Centimeters) 175.3 Current Weight (lbs) 63.503 kg Weight (Calculated Kilograms) 63.5 Weight (Calculated Grams) 89507.9 [place] Body Weight 160 % [place] Body Weight 88 Body Mass Index (BMI) 20.7 Weight Status Approriate GI Symptoms Last BM 09/22 X1 Skin Integrity/Comment: WNL, INTACT, BRUISE RT KNEE TALIB: 17 Estimated Nutritional Goals BEE in Kcals: Using Current wt Calories/Kcals/Kg 25-30 Kcals Calculated 4681-5785 Protein: Using Current wt Protein g/k.0-1.2 Protein Calculated 63-76 Fluid: ml 3920-3880 ML (25-30 ML/KG) Nutritional Problem No current Nutrition Prob Problem NO NUTRITION DIAGNOSIS AT THIS TIME. Etiology N/A Signs/Symptoms: N/A Malnutrition Related to Morbid Obesity Malnutrition related to morbid obesity No Intervention/Recommendation Comments CONTINUE WITH CARDAIC, CCHO 45GM, CHOPPED, MARIE DIET ORDERED. Expected Outcomes/Goals Expected Outcomes/Goals 1. PO INTAKE TO CONTINUE TO MEET > 75% OF NUTRITIONAL NEEDS. 2. MONITOR PO INTAKE, WT, NUTRITION RELATED LABS AND SKIN INTEGRITY. 3. F/U LOW RISK IN 7 DAYS, 09/29
--- NOTE | 2018-09-23 22:25 | Progress Notes ---
DATE: 09/23/2018 SUBJECTIVE: The patient in the hospital, very confused, disoriented, does not know where he is or what is going on or the year, mumbling, not answering any questions. Mostly withdrawn, keeps to self, only telling me his name. Staff noting he remains easily agitated, sometimes intrusive. Ongoing concerns about his ability to really be cared for at a lower level of care. Argumentative at times, forgetful, needing a lot of prompting, redirection. Just stares blankly at me mostly, withdrawn, isolative. The [facility]. Medications were noted. We will continue to monitor ongoing concerns about impulsivity, impulse control, confusional state. JOB# [id number]
[2018-09-24 10:42] LABS: MEAN CORPUSCULAR HGB CONC 33.4 pg (28.0-36.0); RED BLOOD COUNT 2.27 Mil/cmm (3.80-5.80)
[2018-09-24 10:43] LABS: MEAN CELL VOLUME 92.9 fl (80-99); MEAN CORPUSCULAR HEMOGLOBIN 31.1 pg (27.0-31.0); PLATELET COUNT 34 Th/cmm (150-400); RED CELL DISTRIBUTION WIDTH 23.7 % (11.5-20.0); WHITE BLOOD COUNT 8.2 Th/cmm (4.8-10.8)
[2018-09-24 11:11] LABS: HEMATOCRIT 21.1 % (41.0-60)
[2018-09-24] MEDS: Carbidopa/Levodopa 10/100 mg Tab PO SCH ×2 (11:19→16:26)
[2018-09-24] MEDS: Multivitamin Tab PO SCH (11:20)
--- NOTE | 2018-09-24 13:13 | Internal Medicine Prog Note ---
Internal Medicine Subjective - Subjective Service Date: 09/24/18 Patient seen and examined:: with staff (HE IS DOING WELL) Patient is:: awake, verbal, in bed, talking, confused Per staff patient has:: no adverse event Internal Medicine Objective - Results Result Diagrams: 09/24/18 07:00 09/18/18 19:40 Recent Labs: Laboratory Last Values WBC 8.2 Th/cmm (4.8-10.8) 09/24/18 07:00 RBC 2.27 Mil/cmm (3.80-5.80) L 09/24/18 07:00 Hgb 7.0 gm/dL (12-16) L* 09/24/18 07:00 Hct 21.1 % (41.0-60) L 09/24/18 07:00 MCV 92.9 fl (80-99) 09/24/18 07:00 MCH 31.1 pg (27.0-31.0) H 09/24/18 07:00 MCHC Differential 33.4 pg (28.0-36.0) 09/24/18 07:00 RDW 23.7 % (11.5-20.0) H 09/24/18 07:00 Plt Count 34 Th/cmm (150-400) L 09/24/18 07:00 MPV 9.0 fl 09/24/18 07:00 Add Manual Diff YES 09/24/18 07:00 Band Neutrophils % 0 % (0-10) 09/18/18 19:40 Neutrophils (Manual) 40 % (40-80) 09/18/18 19:40 Lymphocytes 50 % (20-50) 09/18/18 19:40 Monocytes 9 % (2-10) 09/18/18 19:40 Eosinophils 1 % (0-5) 09/18/18 19:40 Basophils 0 % (0-3) 09/18/18 19:40 Platelet Estimate DECREASED PLATELETS (NORMAL) 09/18/18 19:40 Anisocytosis 1+ 09/18/18 19:40 Sodium 132 mEq/L (136-145) L 09/18/18 19:40 Potassium 4.1 mEq/L (3.5-5.1) 09/18/18 19:40 Chloride 96 mEq/L (98-107) L 09/18/18 19:40 Carbon Dioxide 28.1 mEq/L (21.0-31.0) 09/18/18 19:40 Anion Gap 12.0 (7.0-16.0) 09/18/18 19:40 BUN 25 mg/dL (7-25) 09/18/18 19:40 Creatinine 0.8 mg/dL (0.7-1.3) 09/18/18 19:40 Est GFR ( Amer) TNP 09/18/18 19:40 Est GFR (Non-Af Amer) TNP 09/18/18 19:40 BUN/Creatinine Ratio 31.3 09/18/18 19:40 Glucose 130 mg/dL (70-105) H 09/18/18 19:40 Calcium 9.5 mg/dL (8.6-10.3) 09/18/18 19:40 Total Bilirubin 0.5 mg/dL (0.3-1.0) 09/18/18 19:40 AST 50 U/L (13-39) H 09/18/18 19:40 ALT 9 U/L (7-52) 09/18/18 19:40 Alkaline Phosphatase 977 U/L (34-104) H 09/18/18 19:40 Total Protein 6.4 gm/dL (6.0-8.3) 09/18/18 19:40 Albumin 3.9 gm/dL (4.2-5.5) L 09/18/18 19:40 Globulin 2.5 gm/dL 09/18/18 19:40 Albumin/Globulin Ratio 1.6 (1.0-1.8) 09/18/18 19:40 Triglycerides 226 mg/dL (<150) H 09/18/18 19:40 Cholesterol 188 mg/dL (<200) 09/18/18 19:40 LDL Cholesterol Direct 95 mg/dL (75-193) 09/18/18 19:40 HDL Cholesterol 52 mg/dL (23-92) 09/18/18 19:40 TSH 2.57 uIU/ml (0.34-5.60) 09/18/18 19:40 Urine Source CLEAN C 09/19/18 01:10 Urine Color YELLOW 09/19/18 01:10 Urine Clarity CLEAR (CLEAR) 09/19/18 01:10 Urine pH 6.0 (4.6 - 8.0) 09/19/18 01:10 Ur Specific [place] 1.020 (1.005-1.030) 09/19/18 01:10 Urine Protein TRACE mg/dL (NEGATIVE) 09/19/18 01:10 Urine Glucose (UA) NEGATIVE mg/dL (NEGATIVE) 09/19/18 01:10 Urine Ketones NEGATIVE mg/dL (NEGATIVE) 09/19/18 01:10 Urine Blood TRACE (NEGATIVE) 09/19/18 01:10 Urine Nitrate NEGATIVE (NEGATIVE) 09/19/18 01:10 Urine Bilirubin NEGATIVE (NEGATIVE) 09/19/18 01:10 Urine Urobilinogen 0.2 E.U./dL (0.2 - 1.0) 09/19/18 01:10 Ur Leukocyte Esterase NEGATIVE (NEGATIVE) 09/19/18 01:10 Urine RBC 0-2 /hpf (0-5) H 09/19/18 01:10 Urine WBC 0-2 /hpf (0-5) 09/19/18 01:10 Ur Epithelial Cells NONE SEEN /lpf (FEW) 09/19/18 01:10 Urine Bacteria FEW /hpf (NONE SEEN) 09/19/18 01:10 Urine Sperm FEW /hpf (NONE SEEN) 09/19/18 01:10 RPR NONREACTIVE (NONREACTIVE) 09/18/18 19:40 - Physical Exam Vitals and I&O: Vital Signs Temp 99.3 F 09/23/18 15:04 Pulse 92 09/24/18 08:20 Resp 18 09/24/18 08:20 BP 119/60 09/23/18 15:04 Pulse Ox 92 09/24/18 08:20 Intake & Output 09/23/18 09/24/18 09/24/18 18:59 06:59 18:59 Intake Total 120 Balance 120 Intake: Oral 120 Other: # Voids 2 # Bowel Movements 0 Active Medications: Current Medications Acetaminophen (Tylenol) 650 mg PO Q4HR PRN PRN Reason: Mild Pain / Temp above 100 Stop: 11/17/18 22:32 Last Admin: 09/18/18 23:27 Dose: 650 mg Al Hydrox/Mg Hydrox/Simethicone (Maalox) 30 ml PO Q4HR PRN PRN Reason: GI DISTRESS Stop: 11/17/18 22:32 Last Admin: 09/21/18 18:35 Dose: 30 ml Albuterol Sulfate (Albuterol 2.5mg/3ml Neb Ud) 2.5 mg HHN Q6HRT PRN; Protocol PRN Reason: Shortness of Breath Stop: 11/18/18 00:59 Carbidopa/Levodopa (Sinemet 10 Mg-100 Mg) 1 tab PO BID [facility] Stop: 11/18/18 08:59 Last Admin: 09/24/18 11:19 Dose: 1 tab Divalproex Sodium (Depakote Er) 500 mg PO BID [facility]; Protocol Stop: 11/18/18 08:59 Last Admin: 09/24/18 11:19 Dose: 500 mg Docusate Sodium (Colace) 250 mg PO DAILY [facility] Stop: 11/18/18 08:59 Last Admin: 09/24/18 11:19 Dose: 250 mg Lorazepam (Ativan) 0.5 mg PO Q4HR PRN; Protocol PRN Reason: Anxiety Stop: 10/18/18 22:32 Magnesium Hydroxide (Milk Of Magnesia) 30 ml PO HS PRN PRN Reason: Constipation Multivitamins/Vitamin C (Theragran) 1 tab PO DAILY [facility] Stop: 11/18/18 08:59 Last Admin: 09/24/18 11:20 Dose: 1 tab Quetiapine Fumarate (Seroquel) 50 mg PO BID [facility]; Protocol Stop: 11/18/18 08:59 Last Admin: 09/24/18 11:20 Dose: 50 mg Zolpidem Tartrate (Ambien) 5 mg PO HS PRN PRN Reason: Insomnia Stop: 11/17/18 22:32 General: demented HEENT: NC/AT, PERRLA, EOMI, anicteric sclerae, throat clear Neck: Supple, No JVD, No thyromegaly, +2 carotid pulse wo bruit, No LAD Lungs: CTAB Cardiovascular: RRR, Normal S1, Normal S2, without murmur Abdomen: soft, non-tender, non-distended Extremities: clear Neurological: no change Internal Medicine Assmt/Plan - Assessment Assessment: 1.PARKINSON DISEASE. 2.ANEMIA. 3.THROMBOCYTOPENIA. 4.PSYCHOSIS - Plan Plan: CONTINUE ON CURRENT MEDICATION AND DIET. Nutritional Asmnt/Malnutr-PDOC - Dietary Evaluation Malnutrition Findings (Please click <Entered> for more info): Nutritional Asmnt/Malnutrition Start: 09/22/18 16: 00 Text: Status: Complete Freq: Protocol: Document 09/22/18 16:00 CHET (Rec: 09/22/18 16:03 CHET [email or web address]) Nutritional Asmnt/Malnutrition Patient General Information Nutritional Screening Moderate Risk Diagnosis PSYCHOSIS Pertinent Medical Hx/Surgical Hx PARKINSONS DISEASE, HYPERLIPIDEMIA, PSYCHOSIS Subjective Information PT IS A 73 YEAR OLD MALE FROM [facility] ADMITTED ON 09/18 D/T REFUSAL TO EAT AND NOT PARTICIPATING IN ACTIVITIES. HT: 59 WT: 140 LB (63.64 KG) BMI: 20.67 (NORMAL) GI: SOFT, NON-TENDER BM: 09/22 X1 I/O: 1190/NOT NOTED SKIN: WNL, INTACT, BRUISE RT KNEE TALIB: 17 DIET ORDER: CARDIAC, CCHO 45GM , CHOPPED, MARIE ESTIMATED ENERGY NEEDS: ( GERIATRIC, CBW) [id number] KCALS (25-30 KCALS/ KG) 63-76 G PRO (1.0-1.2 G/KG) 5106-8502 ML (25-30 ML/KG) PT PO INTAKE: 75-100% MEALS PER MEAL/NUTRITION ACTIVITY RECORD. DIETARY IS CURRENTLY PROVIDING AN [id number] KCALS AND 82 GM PRO. PER PT PO INTAKE, THIS IS PROVIDING AN ESTIMATED 1522 KCALS AND 72 GM PRO, TO MEET 96% KCAL AND 100 % PRO NEEDS ADEQUATE. Current Diet Order/ Nutrition Support CARDIAC, CCHO 45GM, CHOPPED, MARIE Pertinent Medications MAALOX (PRN), ALBUTEROL (PRN), COLACE, MOM (PRN), THEREGRAN Pertinent Labs 09/18: HGB/HCT 7.5/22.0, NA 132 , GLUCOSE 130, AST 50, ALK PHOS 977, ALB 3.9 Nutritional Hx/Data Height 1.75 m Height (Calculated Centimeters) 175.3 Current Weight (lbs) 63.503 kg Weight (Calculated Kilograms) 63.5 Weight (Calculated Grams) 82734.9 [place] Body Weight 160 % [place] Body Weight 88 Body Mass Index (BMI) 20.7 Weight Status Approriate GI Symptoms Last BM 09/22 X1 Skin Integrity/Comment: WNL, INTACT, BRUISE RT KNEE TALIB: 17 Estimated Nutritional Goals BEE in Kcals: Using Current wt Calories/Kcals/Kg 25-30 Kcals Calculated 6138-3404 Protein: Using Current wt Protein g/k.0-1.2 Protein Calculated 63-76 Fluid: ml 8398-2537 ML (25-30 ML/KG) Nutritional Problem No current Nutrition Prob Problem NO NUTRITION DIAGNOSIS AT THIS TIME. Etiology N/A Signs/Symptoms: N/A Malnutrition Related to Morbid Obesity Malnutrition related to morbid obesity No Intervention/Recommendation Comments CONTINUE WITH CARDAIC, CCHO 45GM, CHOPPED, MARIE DIET ORDERED. Expected Outcomes/Goals Expected Outcomes/Goals 1. PO INTAKE TO CONTINUE TO MEET > 75% OF NUTRITIONAL NEEDS. 2. MONITOR PO INTAKE, WT, NUTRITION RELATED LABS AND SKIN INTEGRITY. 3. F/U LOW RISK IN 7 DAYS, 09/29
[2018-09-24 13:34] LABS: ANISOCYTOSIS 2+; BAND NEUTROPHILE 0 % (0-10); BASOPHIL 0 % (0-3); LYMPHOCYTE 50 % (20-50); MONOCYTE 9 % (2-10); NEUTROPHILS 40 % (40-80); PLATELET ESTIMATE DECREASED PLATELETS (NORMAL)
[2018-09-24 13:35] LABS: EOSINOPHIL 1 % (0-5)
[2018-09-25] MEDS: Carbidopa/Levodopa 10/100 mg Tab PO SCH ×2 (08:36→16:32)
[2018-09-25] MEDS: Multivitamin Tab PO SCH (08:36)
--- NOTE | 2018-09-25 16:42 | Progress Notes ---
DATE: SUBJECTIVE: Chart was reviewed and the patient interviewed. Also discussed the patient's condition with the staff and reviewed records and labs. The patient is still easily irritable and he is still guarded and withdrawn. The patient also is still at times demanding. The patient also gets upset when a staff tells him what to do. He also is still restless and is still easily angry. Otherwise, the patient is not talking as much. ASSESSMENT: Depressed and agitated. TREATMENT PLAN: Continue to monitor his behavior and his condition closely. Also, continue adjusting psychotropic medications and working on behavioral modification. The patient continued to take Depakote 500 mg twice a day and Seroquel 50 mg twice a day. We will get Depakote level and we will continue to follow up. JOB# [id number]
--- NOTE | 2018-09-25 22:10 | Internal Medicine Prog Note ---
Internal Medicine Subjective - Subjective Service Date: 09/25/18 Patient seen and examined:: without staff (HE IS DOING WELL) Patient is:: awake, verbal, in bed, talking, confused Per staff patient has:: no adverse event Internal Medicine Objective - Results Result Diagrams: 09/24/18 07:00 09/18/18 19:40 Recent Labs: Laboratory Last Values WBC 8.2 Th/cmm (4.8-10.8) 09/24/18 07:00 RBC 2.27 Mil/cmm (3.80-5.80) L 09/24/18 07:00 Hgb 7.0 gm/dL (12-16) L* 09/24/18 07:00 Hct 21.1 % (41.0-60) L 09/24/18 07:00 MCV 92.9 fl (80-99) 09/24/18 07:00 MCH 31.1 pg (27.0-31.0) H 09/24/18 07:00 MCHC Differential 33.4 pg (28.0-36.0) 09/24/18 07:00 RDW 23.7 % (11.5-20.0) H 09/24/18 07:00 Plt Count 34 Th/cmm (150-400) L 09/24/18 07:00 MPV 9.0 fl 09/24/18 07:00 Add Manual Diff YES 09/24/18 07:00 Band Neutrophils % 0 % (0-10) 09/24/18 07:00 Neutrophils (Manual) 40 % (40-80) 09/24/18 07:00 Lymphocytes 50 % (20-50) 09/24/18 07:00 Monocytes 9 % (2-10) 09/24/18 07:00 Eosinophils 1 % (0-5) 09/24/18 07:00 Basophils 0 % (0-3) 09/24/18 07:00 Platelet Estimate DECREASED PLATELETS (NORMAL) 09/24/18 07:00 Anisocytosis 2+ 09/24/18 07:00 Sodium 132 mEq/L (136-145) L 09/18/18 19:40 Potassium 4.1 mEq/L (3.5-5.1) 09/18/18 19:40 Chloride 96 mEq/L (98-107) L 09/18/18 19:40 Carbon Dioxide 28.1 mEq/L (21.0-31.0) 09/18/18 19:40 Anion Gap 12.0 (7.0-16.0) 09/18/18 19:40 BUN 25 mg/dL (7-25) 09/18/18 19:40 Creatinine 0.8 mg/dL (0.7-1.3) 09/18/18 19:40 Est GFR ( Amer) TNP 09/18/18 19:40 Est GFR (Non-Af Amer) TNP 09/18/18 19:40 BUN/Creatinine Ratio 31.3 09/18/18 19:40 Glucose 130 mg/dL (70-105) H 09/18/18 19:40 Calcium 9.5 mg/dL (8.6-10.3) 09/18/18 19:40 Total Bilirubin 0.5 mg/dL (0.3-1.0) 09/18/18 19:40 AST 50 U/L (13-39) H 09/18/18 19:40 ALT 9 U/L (7-52) 09/18/18 19:40 Alkaline Phosphatase 977 U/L (34-104) H 09/18/18 19:40 Total Protein 6.4 gm/dL (6.0-8.3) 09/18/18 19:40 Albumin 3.9 gm/dL (4.2-5.5) L 09/18/18 19:40 Globulin 2.5 gm/dL 09/18/18 19:40 Albumin/Globulin Ratio 1.6 (1.0-1.8) 09/18/18 19:40 Triglycerides 226 mg/dL (<150) H 09/18/18 19:40 Cholesterol 188 mg/dL (<200) 09/18/18 19:40 LDL Cholesterol Direct 95 mg/dL (75-193) 09/18/18 19:40 HDL Cholesterol 52 mg/dL (23-92) 09/18/18 19:40 TSH 2.57 uIU/ml (0.34-5.60) 09/18/18 19:40 Urine Source CLEAN C 09/19/18 01:10 Urine Color YELLOW 09/19/18 01:10 Urine Clarity CLEAR (CLEAR) 09/19/18 01:10 Urine pH 6.0 (4.6 - 8.0) 09/19/18 01:10 Ur Specific [place] 1.020 (1.005-1.030) 09/19/18 01:10 Urine Protein TRACE mg/dL (NEGATIVE) 09/19/18 01:10 Urine Glucose (UA) NEGATIVE mg/dL (NEGATIVE) 09/19/18 01:10 Urine Ketones NEGATIVE mg/dL (NEGATIVE) 09/19/18 01:10 Urine Blood TRACE (NEGATIVE) 09/19/18 01:10 Urine Nitrate NEGATIVE (NEGATIVE) 09/19/18 01:10 Urine Bilirubin NEGATIVE (NEGATIVE) 09/19/18 01:10 Urine Urobilinogen 0.2 E.U./dL (0.2 - 1.0) 09/19/18 01:10 Ur Leukocyte Esterase NEGATIVE (NEGATIVE) 09/19/18 01:10 Urine RBC 0-2 /hpf (0-5) H 09/19/18 01:10 Urine WBC 0-2 /hpf (0-5) 09/19/18 01:10 Ur Epithelial Cells NONE SEEN /lpf (FEW) 09/19/18 01:10 Urine Bacteria FEW /hpf (NONE SEEN) 09/19/18 01:10 Urine Sperm FEW /hpf (NONE SEEN) 09/19/18 01:10 RPR NONREACTIVE (NONREACTIVE) 09/18/18 19:40 - Physical Exam Vitals and I&O: Vital Signs Temp 97.8 F 09/25/18 06:28 Pulse 93 09/25/18 19:19 Resp 20 09/25/18 19:19 BP 129/73 09/25/18 06:28 Pulse Ox 95 09/25/18 19:19 Intake & Output 09/25/18 09/25/18 09/26/18 06:59 18:59 06:59 Intake Total 120 900 120 Balance 120 900 120 Intake: Oral 120 900 120 Other: # Voids 3 3 2 # Bowel Movements 0 1 0 Active Medications: Current Medications Acetaminophen (Tylenol) 650 mg PO Q4HR PRN PRN Reason: Mild Pain / Temp above 100 Stop: 11/17/18 22:32 Last Admin: 09/24/18 22:08 Dose: 650 mg Al Hydrox/Mg Hydrox/Simethicone (Maalox) 30 ml PO Q4HR PRN PRN Reason: GI DISTRESS Stop: 11/17/18 22:32 Last Admin: 09/21/18 18:35 Dose: 30 ml Albuterol Sulfate (Albuterol 2.5mg/3ml Neb Ud) 2.5 mg HHN Q6HRT PRN; Protocol PRN Reason: Shortness of Breath Stop: 11/18/18 00:59 Carbidopa/Levodopa (Sinemet 10 Mg-100 Mg) 1 tab PO BID OMARI Stop: 11/18/18 08:59 Last Admin: 09/25/18 16:32 Dose: 1 tab Divalproex Sodium (Depakote Er) 500 mg PO BID OMARI; Protocol Stop: 11/18/18 08:59 Last Admin: 09/25/18 16:32 Dose: 500 mg Docusate Sodium (Colace) 250 mg PO DAILY OMARI Stop: 11/18/18 08:59 Last Admin: 09/25/18 08:36 Dose: 250 mg Escitalopram Oxalate (Lexapro) 5 mg PO DAILY OMARI; Protocol Stop: 11/24/18 08:59 Lorazepam (Ativan) 0.5 mg PO Q4HR PRN; Protocol PRN Reason: Anxiety Stop: 10/18/18 22:32 Magnesium Hydroxide (Milk Of Magnesia) 30 ml PO HS PRN PRN Reason: Constipation Multivitamins/Vitamin C (Theragran) 1 tab PO DAILY OMARI Stop: 11/18/18 08:59 Last Admin: 09/25/18 08:36 Dose: 1 tab Quetiapine Fumarate (Seroquel) 50 mg PO BID OMARI; Protocol Stop: 11/18/18 08:59 Last Admin: 09/25/18 16:32 Dose: 50 mg Zolpidem Tartrate (Ambien) 5 mg PO HS PRN PRN Reason: Insomnia Stop: 11/17/18 22:32 Last Admin: 09/24/18 22:09 Dose: 5 mg General: demented HEENT: NC/AT, PERRLA, EOMI, anicteric sclerae, throat clear Neck: Supple, No JVD, No thyromegaly, +2 carotid pulse wo bruit, No LAD Lungs: CTAB Cardiovascular: RRR, Normal S1, Normal S2, without murmur Abdomen: soft, non-tender, non-distended Extremities: clear Neurological: no change Internal Medicine Assmt/Plan - Assessment Assessment: 1.PARKINSON DISEASE. 2.ANEMIA. 3.THROMBOCYTOPENIA. 4.PSYCHOSIS - Plan Plan: CONTINUE ON CURRENT MEDICATION AND DIET. Nutritional Asmnt/Malnutr-PDOC - Dietary Evaluation Malnutrition Findings (Please click <Entered> for more info): Nutritional Asmnt/Malnutrition Start: 09/22/18 16: 00 Text: Status: Complete Freq: Protocol: Document 09/22/18 16:00 CHET (Rec: 09/22/18 16:03 CHET [email or web address]) Nutritional Asmnt/Malnutrition Patient General Information Nutritional Screening Moderate Risk Diagnosis PSYCHOSIS Pertinent Medical Hx/Surgical Hx PARKINSONS DISEASE, HYPERLIPIDEMIA, PSYCHOSIS Subjective Information PT IS A 73 YEAR OLD MALE FROM ALF ADMITTED ON 09/18 D/T REFUSAL TO EAT AND NOT PARTICIPATING IN ACTIVITIES. HT: 59 WT: 140 LB (63.64 KG) BMI: 20.67 (NORMAL) GI: SOFT, NON-TENDER BM: 09/22 X1 I/O: 1190/NOT NOTED SKIN: WNL, INTACT, BRUISE RT KNEE TALIB: 17 DIET ORDER: CARDIAC, CCHO 45GM , CHOPPED, MARIE ESTIMATED ENERGY NEEDS: ( GERIATRIC, CBW) 4451-2435 KCALS (25-30 KCALS/ KG) 63-76 G PRO (1.0-1.2 G/KG) 0200-5461 ML (25-30 ML/KG) PT PO INTAKE: 75-100% MEALS PER MEAL/NUTRITION ACTIVITY RECORD. DIETARY IS CURRENTLY PROVIDING AN [id number] KCALS AND 82 GM PRO. PER PT PO INTAKE, THIS IS PROVIDING AN ESTIMATED 1522 KCALS AND 72 GM PRO, TO MEET 96% KCAL AND 100 % PRO NEEDS ADEQUATE. Current Diet Order/ Nutrition Support CARDIAC, CCHO 45GM, CHOPPED, MARIE Pertinent Medications MAALOX (PRN), ALBUTEROL (PRN), COLACE, MOM (PRN), THEREGRAN Pertinent Labs 09/18: HGB/HCT 7.5/22.0, NA 132 , GLUCOSE 130, AST 50, ALK PHOS 977, ALB 3.9 Nutritional Hx/Data Height 1.75 m Height (Calculated Centimeters) 175.3 Current Weight (lbs) 63.503 kg Weight (Calculated Kilograms) 63.5 Weight (Calculated Grams) 75776.9 [place] Body Weight 160 % [place] Body Weight 88 Body Mass Index (BMI) 20.7 Weight Status Approriate GI Symptoms Last BM 09/22 X1 Skin Integrity/Comment: WNL, INTACT, BRUISE RT KNEE TALIB: 17 Estimated Nutritional Goals BEE in Kcals: Using Current wt Calories/Kcals/Kg 25-30 Kcals Calculated 2097-8986 Protein: Using Current wt Protein g/k.0-1.2 Protein Calculated 63-76 Fluid: ml 5861-5285 ML (25-30 ML/KG) Nutritional Problem No current Nutrition Prob Problem NO NUTRITION DIAGNOSIS AT THIS TIME. Etiology N/A Signs/Symptoms: N/A Malnutrition Related to Morbid Obesity Malnutrition related to morbid obesity No Intervention/Recommendation Comments CONTINUE WITH CARDAIC, CCHO 45GM, CHOPPED, MARIE DIET ORDERED. Expected Outcomes/Goals Expected Outcomes/Goals 1. PO INTAKE TO CONTINUE TO MEET > 75% OF NUTRITIONAL NEEDS. 2. MONITOR PO INTAKE, WT, NUTRITION RELATED LABS AND SKIN INTEGRITY. 3. F/U LOW RISK IN 7 DAYS, 09/29
[2018-09-25] MEDS: Maalox 30 mL Cup PO PRN (22:21)
[2018-09-26] MEDS: Escitalopram Oxalate 5 mg Tab PO SCH (08:28)
[2018-09-26] MEDS: Multivitamin Tab PO SCH (08:28)
[2018-09-26] MEDS: Carbidopa/Levodopa 10/100 mg Tab PO SCH ×2 (08:28→16:22)
--- NOTE | 2018-09-26 23:55 | Internal Medicine Prog Note ---
Internal Medicine Subjective - Subjective Service Date: 09/26/18 Patient seen and examined:: without staff (HE FEELS WELL) Patient is:: awake, verbal, in bed, talking, confused Per staff patient has:: no adverse event Internal Medicine Objective - Results Result Diagrams: 09/24/18 07:00 09/18/18 19:40 Recent Labs: Laboratory Last Values WBC 8.2 Th/cmm (4.8-10.8) 09/24/18 07:00 RBC 2.27 Mil/cmm (3.80-5.80) L 09/24/18 07:00 Hgb 7.0 gm/dL (12-16) L* 09/24/18 07:00 Hct 21.1 % (41.0-60) L 09/24/18 07:00 MCV 92.9 fl (80-99) 09/24/18 07:00 MCH 31.1 pg (27.0-31.0) H 09/24/18 07:00 MCHC Differential 33.4 pg (28.0-36.0) 09/24/18 07:00 RDW 23.7 % (11.5-20.0) H 09/24/18 07:00 Plt Count 34 Th/cmm (150-400) L 09/24/18 07:00 MPV 9.0 fl 09/24/18 07:00 Add Manual Diff YES 09/24/18 07:00 Band Neutrophils % 0 % (0-10) 09/24/18 07:00 Neutrophils (Manual) 40 % (40-80) 09/24/18 07:00 Lymphocytes 50 % (20-50) 09/24/18 07:00 Monocytes 9 % (2-10) 09/24/18 07:00 Eosinophils 1 % (0-5) 09/24/18 07:00 Basophils 0 % (0-3) 09/24/18 07:00 Platelet Estimate DECREASED PLATELETS (NORMAL) 09/24/18 07:00 Anisocytosis 2+ 09/24/18 07:00 Sodium 132 mEq/L (136-145) L 09/18/18 19:40 Potassium 4.1 mEq/L (3.5-5.1) 09/18/18 19:40 Chloride 96 mEq/L (98-107) L 09/18/18 19:40 Carbon Dioxide 28.1 mEq/L (21.0-31.0) 09/18/18 19:40 Anion Gap 12.0 (7.0-16.0) 09/18/18 19:40 BUN 25 mg/dL (7-25) 09/18/18 19:40 Creatinine 0.8 mg/dL (0.7-1.3) 09/18/18 19:40 Est GFR ( Amer) TNP 09/18/18 19:40 Est GFR (Non-Af Amer) TNP 09/18/18 19:40 BUN/Creatinine Ratio 31.3 09/18/18 19:40 Glucose 130 mg/dL (70-105) H 09/18/18 19:40 Calcium 9.5 mg/dL (8.6-10.3) 09/18/18 19:40 Total Bilirubin 0.5 mg/dL (0.3-1.0) 09/18/18 19:40 AST 50 U/L (13-39) H 09/18/18 19:40 ALT 9 U/L (7-52) 09/18/18 19:40 Alkaline Phosphatase 977 U/L (34-104) H 09/18/18 19:40 Total Protein 6.4 gm/dL (6.0-8.3) 09/18/18 19:40 Albumin 3.9 gm/dL (4.2-5.5) L 09/18/18 19:40 Globulin 2.5 gm/dL 09/18/18 19:40 Albumin/Globulin Ratio 1.6 (1.0-1.8) 09/18/18 19:40 Triglycerides 226 mg/dL (<150) H 09/18/18 19:40 Cholesterol 188 mg/dL (<200) 09/18/18 19:40 LDL Cholesterol Direct 95 mg/dL (75-193) 09/18/18 19:40 HDL Cholesterol 52 mg/dL (23-92) 09/18/18 19:40 TSH 2.57 uIU/ml (0.34-5.60) 09/18/18 19:40 Urine Source CLEAN C 09/19/18 01:10 Urine Color YELLOW 09/19/18 01:10 Urine Clarity CLEAR (CLEAR) 09/19/18 01:10 Urine pH 6.0 (4.6 - 8.0) 09/19/18 01:10 Ur Specific [place] 1.020 (1.005-1.030) 09/19/18 01:10 Urine Protein TRACE mg/dL (NEGATIVE) 09/19/18 01:10 Urine Glucose (UA) NEGATIVE mg/dL (NEGATIVE) 09/19/18 01:10 Urine Ketones NEGATIVE mg/dL (NEGATIVE) 09/19/18 01:10 Urine Blood TRACE (NEGATIVE) 09/19/18 01:10 Urine Nitrate NEGATIVE (NEGATIVE) 09/19/18 01:10 Urine Bilirubin NEGATIVE (NEGATIVE) 09/19/18 01:10 Urine Urobilinogen 0.2 E.U./dL (0.2 - 1.0) 09/19/18 01:10 Ur Leukocyte Esterase NEGATIVE (NEGATIVE) 09/19/18 01:10 Urine RBC 0-2 /hpf (0-5) H 09/19/18 01:10 Urine WBC 0-2 /hpf (0-5) 09/19/18 01:10 Ur Epithelial Cells NONE SEEN /lpf (FEW) 09/19/18 01:10 Urine Bacteria FEW /hpf (NONE SEEN) 09/19/18 01:10 Urine Sperm FEW /hpf (NONE SEEN) 09/19/18 01:10 RPR NONREACTIVE (NONREACTIVE) 09/18/18 19:40 - Physical Exam Vitals and I&O: Vital Signs Temp 97.4 F 09/26/18 20:00 Pulse 99 09/26/18 20:00 Resp 20 09/26/18 20:00 BP 100/54 09/26/18 20:00 Pulse Ox 94 09/26/18 20:00 Intake & Output 09/26/18 09/26/18 09/27/18 06:59 18:59 06:59 Intake Total 577 505 3655 Balance 561 497 8482 Intake: Oral 872 729 0913 Other: # Voids 2 4 3 # Bowel Movements 0 1 1 Stool Characteristics Formed Active Medications: Current Medications Acetaminophen (Tylenol) 650 mg PO Q4HR PRN PRN Reason: Mild Pain / Temp above 100 Stop: 11/17/18 22:32 Last Admin: 09/24/18 22:08 Dose: 650 mg Al Hydrox/Mg Hydrox/Simethicone (Maalox) 30 ml PO Q4HR PRN PRN Reason: GI DISTRESS Stop: 11/17/18 22:32 Last Admin: 09/25/18 22:21 Dose: 30 ml Albuterol Sulfate (Albuterol 2.5mg/3ml Neb Ud) 2.5 mg HHN Q6HRT PRN; Protocol PRN Reason: Shortness of Breath Stop: 11/18/18 00:59 Carbidopa/Levodopa (Sinemet 10 Mg-100 Mg) 1 tab PO BID OMARI Stop: 11/18/18 08:59 Last Admin: 09/26/18 16:22 Dose: 1 tab Divalproex Sodium (Depakote Er) 500 mg PO BID OMARI; Protocol Stop: 11/18/18 08:59 Last Admin: 09/26/18 16:22 Dose: 500 mg Docusate Sodium (Colace) 250 mg PO DAILY OMARI Stop: 11/18/18 08:59 Last Admin: 09/26/18 08:28 Dose: 250 mg Escitalopram Oxalate (Lexapro) 5 mg PO DAILY OMARI; Protocol Stop: 11/24/18 08:59 Last Admin: 09/26/18 08:28 Dose: 5 mg Lorazepam (Ativan) 0.5 mg PO Q4HR PRN; Protocol PRN Reason: Anxiety Stop: 10/18/18 22:32 Magnesium Hydroxide (Milk Of Magnesia) 30 ml PO HS PRN PRN Reason: Constipation Multivitamins/Vitamin C (Theragran) 1 tab PO DAILY OMARI Stop: 11/18/18 08:59 Last Admin: 09/26/18 08:28 Dose: 1 tab Quetiapine Fumarate (Seroquel) 50 mg PO BID OMARI; Protocol Stop: 11/18/18 08:59 Last Admin: 09/26/18 16:22 Dose: 50 mg Zolpidem Tartrate (Ambien) 5 mg PO HS PRN PRN Reason: Insomnia Stop: 11/17/18 22:32 Last Admin: 09/25/18 22:21 Dose: 5 mg General: demented HEENT: NC/AT, PERRLA, EOMI, anicteric sclerae, throat clear Neck: Supple, No JVD, No thyromegaly, +2 carotid pulse wo bruit, No LAD Lungs: CTAB Cardiovascular: RRR, Normal S1, Normal S2, without murmur Abdomen: soft, non-tender, non-distended Extremities: clear Neurological: no change Internal Medicine Assmt/Plan - Assessment Assessment: 1.PARKINSON DISEASE. 2.ANEMIA. 3.THROMBOCYTOPENIA. 4.PSYCHOSIS - Plan Plan: CONTINUE ON CURRENT MEDICATION AND DIET. Nutritional Asmnt/Malnutr-PDOC - Dietary Evaluation Malnutrition Findings (Please click <Entered> for more info): Nutritional Asmnt/Malnutrition Start: 09/22/18 16: 00 Text: Status: Complete Freq: Protocol: Document 09/22/18 16:00 DURGACINTHIAMELCHOR (Rec: 09/22/18 16:03 DURGACINTHIAMELCHOR [email or web address]) Nutritional Asmnt/Malnutrition Patient General Information Nutritional Screening Moderate Risk Diagnosis PSYCHOSIS Pertinent Medical Hx/Surgical Hx PARKINSONS DISEASE, HYPERLIPIDEMIA, PSYCHOSIS Subjective Information PT IS A 73 YEAR OLD MALE FROM ALF ADMITTED ON 09/18 D/T REFUSAL TO EAT AND NOT PARTICIPATING IN ACTIVITIES. HT: 59 WT: 140 LB (63.64 KG) BMI: 20.67 (NORMAL) GI: SOFT, NON-TENDER BM: 09/22 X1 I/O: 1190/NOT NOTED SKIN: WNL, INTACT, BRUISE RT KNEE TALIB: 17 DIET ORDER: CARDIAC, CCHO 45GM , CHOPPED, MARIE ESTIMATED ENERGY NEEDS: ( GERIATRIC, CBW) 2120-1012 KCALS (25-30 KCALS/ KG) 63-76 G PRO (1.0-1.2 G/KG) 0073-2975 ML (25-30 ML/KG) PT PO INTAKE: 75-100% MEALS PER MEAL/NUTRITION ACTIVITY RECORD. DIETARY IS CURRENTLY PROVIDING AN [id number] KCALS AND 82 GM PRO. PER PT PO INTAKE, THIS IS PROVIDING AN ESTIMATED 1522 KCALS AND 72 GM PRO, TO MEET 96% KCAL AND 100 % PRO NEEDS ADEQUATE. Current Diet Order/ Nutrition Support CARDIAC, CCHO 45GM, CHOPPED, MARIE Pertinent Medications MAALOX (PRN), ALBUTEROL (PRN), COLACE, MOM (PRN), THEREGRAN Pertinent Labs 09/18: HGB/HCT 7.5/22.0, NA 132 , GLUCOSE 130, AST 50, ALK PHOS 977, ALB 3.9 Nutritional Hx/Data Height 1.75 m Height (Calculated Centimeters) 175.3 Current Weight (lbs) 63.503 kg Weight (Calculated Kilograms) 63.5 Weight (Calculated Grams) 57191.9 [place] Body Weight 160 % [place] Body Weight 88 Body Mass Index (BMI) 20.7 Weight Status Approriate GI Symptoms Last BM 09/22 X1 Skin Integrity/Comment: WNL, INTACT, BRUISE RT KNEE TALIB: 17 Estimated Nutritional Goals BEE in Kcals: Using Current wt Calories/Kcals/Kg 25-30 Kcals Calculated 0134-2525 Protein: Using Current wt Protein g/k.0-1.2 Protein Calculated 63-76 Fluid: ml 0066-0127 ML (25-30 ML/KG) Nutritional Problem No current Nutrition Prob Problem NO NUTRITION DIAGNOSIS AT THIS TIME. Etiology N/A Signs/Symptoms: N/A Malnutrition Related to Morbid Obesity Malnutrition related to morbid obesity No Intervention/Recommendation Comments CONTINUE WITH CARDAIC, CCHO 45GM, CHOPPED, MARIE DIET ORDERED. Expected Outcomes/Goals Expected Outcomes/Goals 1. PO INTAKE TO CONTINUE TO MEET > 75% OF NUTRITIONAL NEEDS. 2. MONITOR PO INTAKE, WT, NUTRITION RELATED LABS AND SKIN INTEGRITY. 3. F/U LOW RISK IN 7 DAYS, 09/29
[2018-09-27] MEDS: Maalox 30 mL Cup PO PRN (00:04)
[2018-09-27] MEDS: Escitalopram Oxalate 5 mg Tab PO SCH ×2 (09:00→09:40)
[2018-09-27] MEDS: Multivitamin Tab PO SCH (09:40)
[2018-09-27] MEDS: Carbidopa/Levodopa 10/100 mg Tab PO SCH ×2 (09:40→18:16)
--- NOTE | 2018-09-27 14:06 | History & Physical ---
ADMIT DATE: 09/27/2018 HEMATOLOGY-ONCOLOGY CONSULTATION REFERRED BY: Dr. Salinas. REASON FOR CONSULTATION: Pancytopenia. HISTORY OF PRESENT ILLNESS: The patient is a 74-year-old male with the psych disorder and I have seen in the psych unit because of pancytopenia. The patient is hospitalized for treatment of his psych disorder and found to have persistent cytopenia that was asked to evaluate. PAST MEDICAL HISTORY: Parkinson disease, dyslipidemia, psychosis. PAST SURGICAL HISTORY: None. SOCIAL HISTORY: No history of smoking or drinking per the patient and the records. MEDICATIONS: Reviewed. PHYSICAL EXAMINATION: GENERAL: The patient is awake, alert, on a wheelchair, not a reliable historian. VITAL SIGNS: Stable. HEENT: Pale complexion. NECK: No lymphadenopathy. CHEST: Equal air entry. ABDOMEN: Soft, nondistended. EXTREMITIES: No edema. LABORATORY WORK: White count 6.8, hemoglobin 7.5, platelets 32 and on repeat hemoglobin is 7 with normal MCV. Chemistry: Creatinine 0.8. AST and alkaline phosphatase are elevated. Urinalysis is negative. No imaging studies available. ASSESSMENT AND PLAN: Severe anemia and thrombocytopenia. We will require comprehensive anemia workup. I will obtain abdominal ultrasound, B12 and folate level, iron studies, stool occult blood and a repeat CBC and if the hemoglobin drops below 7, I will transfuse the patient with packed red blood cells. Further management will be addressed based on the results of the workup. Thank you, Dr. Salinas for the opportunity to participate in the care of this interesting case. [facility]# [id number]
--- NOTE | 2018-09-27 18:03 | Internal Medicine Prog Note ---
Internal Medicine Subjective - Subjective Service Date: 09/27/18 Patient seen and examined:: without staff (HE FEELS WELL) Patient is:: awake, verbal, in bed, talking, confused Per staff patient has:: no adverse event Internal Medicine Objective - Results Result Diagrams: 09/24/18 07:00 09/18/18 19:40 Recent Labs: Laboratory Last Values WBC 8.2 Th/cmm (4.8-10.8) 09/24/18 07:00 RBC 2.27 Mil/cmm (3.80-5.80) L 09/24/18 07:00 Hgb 7.0 gm/dL (12-16) L* 09/24/18 07:00 Hct 21.1 % (41.0-60) L 09/24/18 07:00 MCV 92.9 fl (80-99) 09/24/18 07:00 MCH 31.1 pg (27.0-31.0) H 09/24/18 07:00 MCHC Differential 33.4 pg (28.0-36.0) 09/24/18 07:00 RDW 23.7 % (11.5-20.0) H 09/24/18 07:00 Plt Count 34 Th/cmm (150-400) L 09/24/18 07:00 MPV 9.0 fl 09/24/18 07:00 Add Manual Diff YES 09/24/18 07:00 Band Neutrophils % 0 % (0-10) 09/24/18 07:00 Neutrophils (Manual) 40 % (40-80) 09/24/18 07:00 Lymphocytes 50 % (20-50) 09/24/18 07:00 Monocytes 9 % (2-10) 09/24/18 07:00 Eosinophils 1 % (0-5) 09/24/18 07:00 Basophils 0 % (0-3) 09/24/18 07:00 Platelet Estimate DECREASED PLATELETS (NORMAL) 09/24/18 07:00 Anisocytosis 2+ 09/24/18 07:00 Sodium 132 mEq/L (136-145) L 09/18/18 19:40 Potassium 4.1 mEq/L (3.5-5.1) 09/18/18 19:40 Chloride 96 mEq/L (98-107) L 09/18/18 19:40 Carbon Dioxide 28.1 mEq/L (21.0-31.0) 09/18/18 19:40 Anion Gap 12.0 (7.0-16.0) 09/18/18 19:40 BUN 25 mg/dL (7-25) 09/18/18 19:40 Creatinine 0.8 mg/dL (0.7-1.3) 09/18/18 19:40 Est GFR ( Amer) TNP 09/18/18 19:40 Est GFR (Non-Af Amer) TNP 09/18/18 19:40 BUN/Creatinine Ratio 31.3 09/18/18 19:40 Glucose 130 mg/dL (70-105) H 09/18/18 19:40 Calcium 9.5 mg/dL (8.6-10.3) 09/18/18 19:40 Total Bilirubin 0.5 mg/dL (0.3-1.0) 09/18/18 19:40 AST 50 U/L (13-39) H 09/18/18 19:40 ALT 9 U/L (7-52) 09/18/18 19:40 Alkaline Phosphatase 977 U/L (34-104) H 09/18/18 19:40 Total Protein 6.4 gm/dL (6.0-8.3) 09/18/18 19:40 Albumin 3.9 gm/dL (4.2-5.5) L 09/18/18 19:40 Globulin 2.5 gm/dL 09/18/18 19:40 Albumin/Globulin Ratio 1.6 (1.0-1.8) 09/18/18 19:40 Triglycerides 226 mg/dL (<150) H 09/18/18 19:40 Cholesterol 188 mg/dL (<200) 09/18/18 19:40 LDL Cholesterol Direct 95 mg/dL (75-193) 09/18/18 19:40 HDL Cholesterol 52 mg/dL (23-92) 09/18/18 19:40 TSH 2.57 uIU/ml (0.34-5.60) 09/18/18 19:40 Urine Source CLEAN C 09/19/18 01:10 Urine Color YELLOW 09/19/18 01:10 Urine Clarity CLEAR (CLEAR) 09/19/18 01:10 Urine pH 6.0 (4.6 - 8.0) 09/19/18 01:10 Ur Specific [place] 1.020 (1.005-1.030) 09/19/18 01:10 Urine Protein TRACE mg/dL (NEGATIVE) 09/19/18 01:10 Urine Glucose (UA) NEGATIVE mg/dL (NEGATIVE) 09/19/18 01:10 Urine Ketones NEGATIVE mg/dL (NEGATIVE) 09/19/18 01:10 Urine Blood TRACE (NEGATIVE) 09/19/18 01:10 Urine Nitrate NEGATIVE (NEGATIVE) 09/19/18 01:10 Urine Bilirubin NEGATIVE (NEGATIVE) 09/19/18 01:10 Urine Urobilinogen 0.2 E.U./dL (0.2 - 1.0) 09/19/18 01:10 Ur Leukocyte Esterase NEGATIVE (NEGATIVE) 09/19/18 01:10 Urine RBC 0-2 /hpf (0-5) H 09/19/18 01:10 Urine WBC 0-2 /hpf (0-5) 09/19/18 01:10 Ur Epithelial Cells NONE SEEN /lpf (FEW) 09/19/18 01:10 Urine Bacteria FEW /hpf (NONE SEEN) 09/19/18 01:10 Urine Sperm FEW /hpf (NONE SEEN) 09/19/18 01:10 RPR NONREACTIVE (NONREACTIVE) 09/18/18 19:40 - Physical Exam Vitals and I&O: Vital Signs Temp 97.6 F 09/27/18 06:36 Pulse 94 09/27/18 08:40 Resp 18 09/27/18 08:40 BP 122/71 09/27/18 06:36 Pulse Ox 95 09/27/18 08:40 Intake & Output 09/26/18 09/27/18 09/27/18 18:59 06:59 18:59 Intake Total 900 1200 1300 Balance 900 1200 1300 Intake: Oral 900 1200 1300 Other: # Voids 4 3 3 # Bowel Movements 1 0 0 Stool Characteristics Formed Active Medications: Current Medications Acetaminophen (Tylenol) 650 mg PO Q4HR PRN PRN Reason: Mild Pain / Temp above 100 Stop: 11/17/18 22:32 Last Admin: 09/24/18 22:08 Dose: 650 mg Al Hydrox/Mg Hydrox/Simethicone (Maalox) 30 ml PO Q4HR PRN PRN Reason: GI DISTRESS Stop: 11/17/18 22:32 Last Admin: 09/27/18 00:04 Dose: 30 ml Albuterol Sulfate (Albuterol 2.5mg/3ml Neb Ud) 2.5 mg HHN Q6HRT PRN; Protocol PRN Reason: Shortness of Breath Stop: 11/18/18 00:59 Carbidopa/Levodopa (Sinemet 10 Mg-100 Mg) 1 tab PO BID OMARI Stop: 11/18/18 08:59 Last Admin: 09/27/18 09:40 Dose: 1 tab Divalproex Sodium (Depakote Er) 500 mg PO BID OMARI; Protocol Stop: 11/18/18 08:59 Last Admin: 09/27/18 09:39 Dose: 500 mg Docusate Sodium (Colace) 250 mg PO DAILY OMARI Stop: 11/18/18 08:59 Last Admin: 09/27/18 09:40 Dose: 250 mg Escitalopram Oxalate (Lexapro) 5 mg PO DAILY OMARI; Protocol Stop: 11/24/18 08:59 Last Admin: 09/27/18 09:40 Dose: 5 mg Lorazepam (Ativan) 0.5 mg PO Q4HR PRN; Protocol PRN Reason: Anxiety Stop: 10/18/18 22:32 Last Admin: 09/27/18 09:40 Dose: 0.5 mg Magnesium Hydroxide (Milk Of Magnesia) 30 ml PO HS PRN PRN Reason: Constipation Multivitamins/Vitamin C (Theragran) 1 tab PO DAILY OMARI Stop: 11/18/18 08:59 Last Admin: 09/27/18 09:40 Dose: 1 tab Quetiapine Fumarate (Seroquel) 50 mg PO BID OMARI; Protocol Stop: 11/18/18 08:59 Last Admin: 09/27/18 09:40 Dose: 50 mg Zolpidem Tartrate (Ambien) 5 mg PO HS PRN PRN Reason: Insomnia Stop: 11/17/18 22:32 Last Admin: 09/27/18 00:04 Dose: 5 mg General: demented HEENT: NC/AT, PERRLA, EOMI, anicteric sclerae, throat clear Neck: Supple, No JVD, No thyromegaly, +2 carotid pulse wo bruit, No LAD Lungs: CTAB Cardiovascular: RRR, Normal S1, Normal S2, without murmur Abdomen: soft, non-tender, non-distended Extremities: clear Neurological: no change Internal Medicine Assmt/Plan - Assessment Assessment: 1.PARKINSON DISEASE. 2.ANEMIA. 3.THROMBOCYTOPENIA. 4.PSYCHOSIS - Plan Plan: CONTINUE ON CURRENT MEDICATION AND DIET. Nutritional Asmnt/Malnutr-PDOC - Dietary Evaluation Malnutrition Findings (Please click <Entered> for more info): Nutritional Asmnt/Malnutrition Start: 09/22/18 16: 00 Text: Status: Complete Freq: Protocol: Document 09/22/18 16:00 LIANAMELCHOR (Rec: 09/22/18 16:03 LIANAMELCHOR [email or web address]) Nutritional Asmnt/Malnutrition Patient General Information Nutritional Screening Moderate Risk Diagnosis PSYCHOSIS Pertinent Medical Hx/Surgical Hx PARKINSONS DISEASE, HYPERLIPIDEMIA, PSYCHOSIS Subjective Information PT IS A 73 YEAR OLD MALE FROM [facility] ADMITTED ON 09/18 D/T REFUSAL TO EAT AND NOT PARTICIPATING IN ACTIVITIES. HT: 59 WT: 140 LB (63.64 KG) BMI: 20.67 (NORMAL) GI: SOFT, NON-TENDER BM: 09/22 X1 I/O: 1190/NOT NOTED SKIN: WNL, INTACT, BRUISE RT KNEE TALIB: 17 DIET ORDER: CARDIAC, CCHO 45GM , CHOPPED, MARIE ESTIMATED ENERGY NEEDS: ( GERIATRIC, CBW) [id number] KCALS (25-30 KCALS/ KG) 63-76 G PRO (1.0-1.2 G/KG) 8127-2316 ML (25-30 ML/KG) PT PO INTAKE: 75-100% MEALS PER MEAL/NUTRITION ACTIVITY RECORD. DIETARY IS CURRENTLY PROVIDING AN [id number] KCALS AND 82 GM PRO. PER PT PO INTAKE, THIS IS PROVIDING AN ESTIMATED 1522 KCALS AND 72 GM PRO, TO MEET 96% KCAL AND 100 % PRO NEEDS ADEQUATE. Current Diet Order/ Nutrition Support CARDIAC, CCHO 45GM, CHOPPED, MARIE Pertinent Medications MAALOX (PRN), ALBUTEROL (PRN), COLACE, MOM (PRN), THEREGRAN Pertinent Labs 09/18: HGB/HCT 7.5/22.0, NA 132 , GLUCOSE 130, AST 50, ALK PHOS 977, ALB 3.9 Nutritional Hx/Data Height 1.75 m Height (Calculated Centimeters) 175.3 Current Weight (lbs) 63.503 kg Weight (Calculated Kilograms) 63.5 Weight (Calculated Grams) 10071.9 [place] Body Weight 160 % [place] Body Weight 88 Body Mass Index (BMI) 20.7 Weight Status Approriate GI Symptoms Last BM 09/22 X1 Skin Integrity/Comment: WNL, INTACT, BRUISE RT KNEE TALIB: 17 Estimated Nutritional Goals BEE in Kcals: Using Current wt Calories/Kcals/Kg 25-30 Kcals Calculated 4632-8657 Protein: Using Current wt Protein g/k.0-1.2 Protein Calculated 63-76 Fluid: ml 9767-4678 ML (25-30 ML/KG) Nutritional Problem No current Nutrition Prob Problem NO NUTRITION DIAGNOSIS AT THIS TIME. Etiology N/A Signs/Symptoms: N/A Malnutrition Related to Morbid Obesity Malnutrition related to morbid obesity No Intervention/Recommendation Comments CONTINUE WITH CARDAIC, CCHO 45GM, CHOPPED, MARIE DIET ORDERED. Expected Outcomes/Goals Expected Outcomes/Goals 1. PO INTAKE TO CONTINUE TO MEET > 75% OF NUTRITIONAL NEEDS. 2. MONITOR PO INTAKE, WT, NUTRITION RELATED LABS AND SKIN INTEGRITY. 3. F/U LOW RISK IN 7 DAYS, 09/29
[2018-09-28] MEDS: Maalox 30 mL Cup PO PRN (01:03)
--- NOTE | 2018-09-28 01:21 | Progress Notes ---
DATE: 09/27/[address] Jones. Case was discussed with staff of the patient, reviewed records. Covering for Dr. Jones. I have seen this patient before. So he is a well-known case to me. The patient continues to be guarded. Continues with disheveled. He is on a wheelchair, unable to carry on a conversation and make safe plan for self-care, guarded. Continues to be at times demanding, easily upset. He is compliant with the medication with no side effect. He is on Depakote and Seroquel. No sedation, no nausea, no extrapyramidal symptoms. We will continue to work with the patient in group therapy, milieu therapy, and adjust the medication as needed. JOB# [id number]
[2018-09-28] MEDS: Escitalopram Oxalate 5 mg Tab PO SCH ×2 (09:00→15:40)
[2018-09-28] MEDS: Carbidopa/Levodopa 10/100 mg Tab PO SCH ×2 (09:00→17:25)
[2018-09-28] MEDS: Multivitamin Tab PO SCH (09:00)
--- NOTE | 2018-09-28 14:21 | Progress Notes ---
DATE: 09/28/[address] Jones. SUBJECTIVE: Case was discussed with staff of the patient, reviewed records. The patient was seen by Dr. Smith yesterday because of pancytopenia. The patient also with a history of dyslipidemia, psychosis. Dr. Smith's is opinion is that he needed a comprehensive anemia workup and we will obtain abdominal ultrasound, B12, folate, iron studies, stool for occult blood with CBC and hemoglobin. he may have to have a blood transfusion, if his hemoglobin go below 7. The patient current medications include Depakote, which has caused decrease in red cell count. So, I will be taking him off the Depakote and instead give him Trileptal. The patient has a history of being on clozapine and Haldol, but he is not currently on Clozaril, but Depakote may have affected his cell count in general. He continues to be guarded, disheveled. He is on a chair. Continues to be unable to carry a conversation, easily irritable and we will continue the patient in group therapy, milieu therapy, and adjust medication as needed. JOB# [id number] MTDD
--- NOTE | 2018-09-28 22:26 | Internal Medicine Prog Note ---
Internal Medicine Subjective - Subjective Service Date: 09/28/18 Patient seen and examined:: without staff (HE FEELS WELL) Patient is:: awake, verbal, in bed, talking, confused Per staff patient has:: no adverse event Internal Medicine Objective - Results Result Diagrams: 09/24/18 07:00 09/18/18 19:40 Recent Labs: Laboratory Last Values WBC 8.2 Th/cmm (4.8-10.8) 09/24/18 07:00 RBC 2.27 Mil/cmm (3.80-5.80) L 09/24/18 07:00 Hgb 7.0 gm/dL (12-16) L* 09/24/18 07:00 Hct 21.1 % (41.0-60) L 09/24/18 07:00 MCV 92.9 fl (80-99) 09/24/18 07:00 MCH 31.1 pg (27.0-31.0) H 09/24/18 07:00 MCHC Differential 33.4 pg (28.0-36.0) 09/24/18 07:00 RDW 23.7 % (11.5-20.0) H 09/24/18 07:00 Plt Count 34 Th/cmm (150-400) L 09/24/18 07:00 MPV 9.0 fl 09/24/18 07:00 Add Manual Diff YES 09/24/18 07:00 Band Neutrophils % 0 % (0-10) 09/24/18 07:00 Neutrophils (Manual) 40 % (40-80) 09/24/18 07:00 Lymphocytes 50 % (20-50) 09/24/18 07:00 Monocytes 9 % (2-10) 09/24/18 07:00 Eosinophils 1 % (0-5) 09/24/18 07:00 Basophils 0 % (0-3) 09/24/18 07:00 Platelet Estimate DECREASED PLATELETS (NORMAL) 09/24/18 07:00 Anisocytosis 2+ 09/24/18 07:00 Sodium 132 mEq/L (136-145) L 09/18/18 19:40 Potassium 4.1 mEq/L (3.5-5.1) 09/18/18 19:40 Chloride 96 mEq/L (98-107) L 09/18/18 19:40 Carbon Dioxide 28.1 mEq/L (21.0-31.0) 09/18/18 19:40 Anion Gap 12.0 (7.0-16.0) 09/18/18 19:40 BUN 25 mg/dL (7-25) 09/18/18 19:40 Creatinine 0.8 mg/dL (0.7-1.3) 09/18/18 19:40 Est GFR ( Amer) TNP 09/18/18 19:40 Est GFR (Non-Af Amer) TNP 09/18/18 19:40 BUN/Creatinine Ratio 31.3 09/18/18 19:40 Glucose 130 mg/dL (70-105) H 09/18/18 19:40 Calcium 9.5 mg/dL (8.6-10.3) 09/18/18 19:40 Total Bilirubin 0.5 mg/dL (0.3-1.0) 09/18/18 19:40 AST 50 U/L (13-39) H 09/18/18 19:40 ALT 9 U/L (7-52) 09/18/18 19:40 Alkaline Phosphatase 977 U/L (34-104) H 09/18/18 19:40 Total Protein 6.4 gm/dL (6.0-8.3) 09/18/18 19:40 Albumin 3.9 gm/dL (4.2-5.5) L 09/18/18 19:40 Globulin 2.5 gm/dL 09/18/18 19:40 Albumin/Globulin Ratio 1.6 (1.0-1.8) 09/18/18 19:40 Triglycerides 226 mg/dL (<150) H 09/18/18 19:40 Cholesterol 188 mg/dL (<200) 09/18/18 19:40 LDL Cholesterol Direct 95 mg/dL (75-193) 09/18/18 19:40 HDL Cholesterol 52 mg/dL (23-92) 09/18/18 19:40 TSH 2.57 uIU/ml (0.34-5.60) 09/18/18 19:40 Urine Source CLEAN C 09/19/18 01:10 Urine Color YELLOW 09/19/18 01:10 Urine Clarity CLEAR (CLEAR) 09/19/18 01:10 Urine pH 6.0 (4.6 - 8.0) 09/19/18 01:10 Ur Specific [place] 1.020 (1.005-1.030) 09/19/18 01:10 Urine Protein TRACE mg/dL (NEGATIVE) 09/19/18 01:10 Urine Glucose (UA) NEGATIVE mg/dL (NEGATIVE) 09/19/18 01:10 Urine Ketones NEGATIVE mg/dL (NEGATIVE) 09/19/18 01:10 Urine Blood TRACE (NEGATIVE) 09/19/18 01:10 Urine Nitrate NEGATIVE (NEGATIVE) 09/19/18 01:10 Urine Bilirubin NEGATIVE (NEGATIVE) 09/19/18 01:10 Urine Urobilinogen 0.2 E.U./dL (0.2 - 1.0) 09/19/18 01:10 Ur Leukocyte Esterase NEGATIVE (NEGATIVE) 09/19/18 01:10 Urine RBC 0-2 /hpf (0-5) H 09/19/18 01:10 Urine WBC 0-2 /hpf (0-5) 09/19/18 01:10 Ur Epithelial Cells NONE SEEN /lpf (FEW) 09/19/18 01:10 Urine Bacteria FEW /hpf (NONE SEEN) 09/19/18 01:10 Urine Sperm FEW /hpf (NONE SEEN) 09/19/18 01:10 RPR NONREACTIVE (NONREACTIVE) 09/18/18 19:40 - Physical Exam Vitals and I&O: Vital Signs Temp 96.7 F 09/28/18 14:00 Pulse 118 09/28/18 14:00 Resp 20 09/28/18 14:00 BP 98/64 09/28/18 14:00 Pulse Ox 96 09/28/18 14:00 Intake & Output 09/28/18 09/28/18 09/29/18 06:59 18:59 06:59 Intake Total 400 Balance 400 Intake: Oral 400 Other: # Voids 3 # Bowel Movements 0 Stool Characteristics Formed Formed Active Medications: Current Medications Acetaminophen (Tylenol) 650 mg PO Q4HR PRN PRN Reason: Mild Pain / Temp above 100 Stop: 11/17/18 22:32 Last Admin: 09/24/18 22:08 Dose: 650 mg Al Hydrox/Mg Hydrox/Simethicone (Maalox) 30 ml PO Q4HR PRN PRN Reason: GI DISTRESS Stop: 11/17/18 22:32 Last Admin: 09/28/18 01:03 Dose: 30 ml Albuterol Sulfate (Albuterol 2.5mg/3ml Neb Ud) 2.5 mg HHN Q6HRT PRN; Protocol PRN Reason: Shortness of Breath Stop: 11/18/18 00:59 Carbidopa/Levodopa (Sinemet 10 Mg-100 Mg) 1 tab PO BID OMARI Stop: 11/18/18 08:59 Last Admin: 09/28/18 17:25 Dose: Not Given Docusate Sodium (Colace) 250 mg PO DAILY OMARI Stop: 11/18/18 08:59 Last Admin: 09/28/18 09:00 Dose: Not Given Escitalopram Oxalate (Lexapro) 5 mg PO DAILY [facility]; Protocol Stop: 11/24/18 08:59 Last Admin: 09/28/18 09:00 Dose: Not Given Lorazepam (Ativan) 0.5 mg PO Q4HR PRN; Protocol PRN Reason: Anxiety Stop: 10/18/18 22:32 Last Admin: 09/27/18 09:40 Dose: 0.5 mg Magnesium Hydroxide (Milk Of Magnesia) 30 ml PO HS PRN PRN Reason: Constipation Multivitamins/Vitamin C (Theragran) 1 tab PO DAILY OMARI Stop: 11/18/18 08:59 Last Admin: 09/28/18 09:00 Dose: Not Given Oxcarbazepine (Trileptal) 300 mg PO BID [facility]; Protocol Stop: 11/27/18 16:59 Last Admin: 09/28/18 17:25 Dose: Not Given Quetiapine Fumarate (Seroquel) 50 mg PO BID [facility]; Protocol Stop: 11/18/18 08:59 Last Admin: 09/28/18 17:25 Dose: Not Given Zolpidem Tartrate (Ambien) 5 mg PO HS PRN PRN Reason: Insomnia Stop: 11/17/18 22:32 Last Admin: 09/27/18 00:04 Dose: 5 mg General: demented HEENT: NC/AT, PERRLA, EOMI, anicteric sclerae, throat clear Neck: Supple, No JVD, No thyromegaly, +2 carotid pulse wo bruit, No LAD Lungs: CTAB Cardiovascular: RRR, Normal S1, Normal S2, without murmur Abdomen: soft, non-tender, non-distended Extremities: clear Neurological: no change Internal Medicine Assmt/Plan - Assessment Assessment: 1.PARKINSON DISEASE. 2.ANEMIA. 3.THROMBOCYTOPENIA. 4.PSYCHOSIS - Plan Plan: CONTINUE ON CURRENT MEDICATION AND DIET. Nutritional Asmnt/Malnutr-PDOC - Dietary Evaluation Malnutrition Findings (Please click <Entered> for more info): Nutritional Asmnt/Malnutrition Start: 09/22/18 16: 00 Text: Status: Complete Freq: Protocol: Document 09/22/18 16:00 CHET (Rec: 09/22/18 16:03 CHET [email or web address]) Nutritional Asmnt/Malnutrition Patient General Information Nutritional Screening Moderate Risk Diagnosis PSYCHOSIS Pertinent Medical Hx/Surgical Hx PARKINSONS DISEASE, HYPERLIPIDEMIA, PSYCHOSIS Subjective Information PT IS A 73 YEAR OLD MALE [facility] D/T REFUSAL TO EAT AND NOT PARTICIPATING IN ACTIVITIES. HT: 59 WT: 140 LB (63.64 KG) BMI: 20.67 (NORMAL) GI: SOFT, NON-TENDER BM: 09/22 X1 I/O: 1190/NOT NOTED SKIN: WNL, INTACT, BRUISE RT KNEE TALIB: 17 DIET ORDER: CARDIAC, CCHO 45GM , CHOPPED, MARIE ESTIMATED ENERGY NEEDS: ( GERIATRIC, CBW) [id number] KCALS (25-30 KCALS/ KG) 63-76 G PRO (1.0-1.2 G/KG) 5783-6183 ML (25-30 ML/KG) PT PO INTAKE: 75-100% MEALS PER MEAL/NUTRITION ACTIVITY RECORD. DIETARY IS CURRENTLY PROVIDING AN [id number] KCALS AND 82 GM PRO. PER PT PO INTAKE, THIS IS PROVIDING AN ESTIMATED 1522 KCALS AND 72 GM PRO, TO MEET 96% KCAL AND 100 % PRO NEEDS ADEQUATE. Current Diet Order/ Nutrition Support CARDIAC, CCHO 45GM, CHOPPED, MARIE Pertinent Medications MAALOX (PRN), ALBUTEROL (PRN), COLACE, MOM (PRN), THEREGRAN Pertinent Labs 09/18: HGB/HCT 7.5/22.0, NA 132 , GLUCOSE 130, AST 50, ALK PHOS 977, ALB 3.9 Nutritional Hx/Data Height 1.75 m Height (Calculated Centimeters) 175.3 Current Weight (lbs) 63.503 kg Weight (Calculated Kilograms) 63.5 Weight (Calculated Grams) 35562.9 [place] Body Weight 160 % [place] Body Weight 88 Body Mass Index (BMI) 20.7 Weight Status Approriate GI Symptoms Last BM 09/22 X1 Skin Integrity/Comment: WNL, INTACT, BRUISE RT KNEE TALIB: 17 Estimated Nutritional Goals BEE in Kcals: Using Current wt Calories/Kcals/Kg 25-30 Kcals Calculated 1827-6051 Protein: Using Current wt Protein g/k.0-1.2 Protein Calculated 63-76 Fluid: ml 5613-4135 ML (25-30 ML/KG) Nutritional Problem No current Nutrition Prob Problem NO NUTRITION DIAGNOSIS AT THIS TIME. Etiology N/A Signs/Symptoms: N/A Malnutrition Related to Morbid Obesity Malnutrition related to morbid obesity No Intervention/Recommendation Comments CONTINUE WITH SULEMAN BLUM 45GM, CHOPPED, MARIE DIET ORDERED. Expected Outcomes/Goals Expected Outcomes/Goals 1. PO INTAKE TO CONTINUE TO MEET > 75% OF NUTRITIONAL NEEDS. 2. MONITOR PO INTAKE, WT, NUTRITION RELATED LABS AND SKIN INTEGRITY. 3. F/U LOW RISK IN 7 DAYS, 09/29
--- NOTE | 2018-09-29 06:50 | Progress Notes ---
DATE: 09/28/2018 SUBJECTIVE: Chart reviewed and the patient interviewed. Also discussed the patient's condition with the staff and reviewed records and labs. The patient remains severely depressed and withdrawn. The patient also is interacting minimally with peers and with others. The patient also is still feeling hopeless and helpless. He also still needs lots of redirections. On the other hand, has decreased mood swings. ASSESSMENT: The patient is still depressed and still has ineffective coping. TREATMENT PLAN: Continue to monitor behavior and condition closely. Also, we will continue Depakote 500 mg twice a day and we will get Depakote blood level. Also, continue Lexapro and Seroquel and we will continue to follow up closely. [facility]# [id number]
[2018-09-29] MEDS: Multivitamin Tab PO SCH (08:47)
[2018-09-29] MEDS: Escitalopram Oxalate 5 mg Tab PO SCH (08:47)
[2018-09-29] MEDS: Carbidopa/Levodopa 10/100 mg Tab PO SCH ×2 (08:47→17:41)
--- NOTE | 2018-09-29 21:03 | Internal Medicine Prog Note ---
Internal Medicine Subjective - Subjective Service Date: 09/29/18 Patient seen and examined:: with staff (HE FEELS WELL) Patient is:: awake, verbal, in bed, talking, confused Per staff patient has:: no adverse event Internal Medicine Objective - Results Result Diagrams: 09/24/18 07:00 09/18/18 19:40 Recent Labs: Laboratory Last Values WBC 8.2 Th/cmm (4.8-10.8) 09/24/18 07:00 RBC 2.27 Mil/cmm (3.80-5.80) L 09/24/18 07:00 Hgb 7.0 gm/dL (12-16) L* 09/24/18 07:00 Hct 21.1 % (41.0-60) L 09/24/18 07:00 MCV 92.9 fl (80-99) 09/24/18 07:00 MCH 31.1 pg (27.0-31.0) H 09/24/18 07:00 MCHC Differential 33.4 pg (28.0-36.0) 09/24/18 07:00 RDW 23.7 % (11.5-20.0) H 09/24/18 07:00 Plt Count 34 Th/cmm (150-400) L 09/24/18 07:00 MPV 9.0 fl 09/24/18 07:00 Add Manual Diff YES 09/24/18 07:00 Band Neutrophils % 0 % (0-10) 09/24/18 07:00 Neutrophils (Manual) 40 % (40-80) 09/24/18 07:00 Lymphocytes 50 % (20-50) 09/24/18 07:00 Monocytes 9 % (2-10) 09/24/18 07:00 Eosinophils 1 % (0-5) 09/24/18 07:00 Basophils 0 % (0-3) 09/24/18 07:00 Platelet Estimate DECREASED PLATELETS (NORMAL) 09/24/18 07:00 Anisocytosis 2+ 09/24/18 07:00 Sodium 132 mEq/L (136-145) L 09/18/18 19:40 Potassium 4.1 mEq/L (3.5-5.1) 09/18/18 19:40 Chloride 96 mEq/L (98-107) L 09/18/18 19:40 Carbon Dioxide 28.1 mEq/L (21.0-31.0) 09/18/18 19:40 Anion Gap 12.0 (7.0-16.0) 09/18/18 19:40 BUN 25 mg/dL (7-25) 09/18/18 19:40 Creatinine 0.8 mg/dL (0.7-1.3) 09/18/18 19:40 Est GFR ( Amer) TNP 09/18/18 19:40 Est GFR (Non-Af Amer) TNP 09/18/18 19:40 BUN/Creatinine Ratio 31.3 09/18/18 19:40 Glucose 130 mg/dL (70-105) H 09/18/18 19:40 Calcium 9.5 mg/dL (8.6-10.3) 09/18/18 19:40 Total Bilirubin 0.5 mg/dL (0.3-1.0) 09/18/18 19:40 AST 50 U/L (13-39) H 09/18/18 19:40 ALT 9 U/L (7-52) 09/18/18 19:40 Alkaline Phosphatase 977 U/L (34-104) H 09/18/18 19:40 Total Protein 6.4 gm/dL (6.0-8.3) 09/18/18 19:40 Albumin 3.9 gm/dL (4.2-5.5) L 09/18/18 19:40 Globulin 2.5 gm/dL 09/18/18 19:40 Albumin/Globulin Ratio 1.6 (1.0-1.8) 09/18/18 19:40 Triglycerides 226 mg/dL (<150) H 09/18/18 19:40 Cholesterol 188 mg/dL (<200) 09/18/18 19:40 LDL Cholesterol Direct 95 mg/dL (75-193) 09/18/18 19:40 HDL Cholesterol 52 mg/dL (23-92) 09/18/18 19:40 TSH 2.57 uIU/ml (0.34-5.60) 09/18/18 19:40 Urine Source CLEAN C 09/19/18 01:10 Urine Color YELLOW 09/19/18 01:10 Urine Clarity CLEAR (CLEAR) 09/19/18 01:10 Urine pH 6.0 (4.6 - 8.0) 09/19/18 01:10 Ur Specific [place] 1.020 (1.005-1.030) 09/19/18 01:10 Urine Protein TRACE mg/dL (NEGATIVE) 09/19/18 01:10 Urine Glucose (UA) NEGATIVE mg/dL (NEGATIVE) 09/19/18 01:10 Urine Ketones NEGATIVE mg/dL (NEGATIVE) 09/19/18 01:10 Urine Blood TRACE (NEGATIVE) 09/19/18 01:10 Urine Nitrate NEGATIVE (NEGATIVE) 09/19/18 01:10 Urine Bilirubin NEGATIVE (NEGATIVE) 09/19/18 01:10 Urine Urobilinogen 0.2 E.U./dL (0.2 - 1.0) 09/19/18 01:10 Ur Leukocyte Esterase NEGATIVE (NEGATIVE) 09/19/18 01:10 Urine RBC 0-2 /hpf (0-5) H 09/19/18 01:10 Urine WBC 0-2 /hpf (0-5) 09/19/18 01:10 Ur Epithelial Cells NONE SEEN /lpf (FEW) 09/19/18 01:10 Urine Bacteria FEW /hpf (NONE SEEN) 09/19/18 01:10 Urine Sperm FEW /hpf (NONE SEEN) 09/19/18 01:10 RPR NONREACTIVE (NONREACTIVE) 09/18/18 19:40 - Physical Exam Vitals and I&O: Vital Signs Temp 96.7 F 09/28/18 14:00 Pulse 118 09/28/18 14:00 Resp 20 09/28/18 14:00 BP 98/64 09/28/18 14:00 Pulse Ox 96 09/28/18 14:00 Intake & Output 09/29/18 09/29/18 09/30/18 06:59 18:59 06:59 Intake Total 900 180 Balance 900 180 Intake: Oral 900 180 Other: # Voids 1 3 2 # Bowel Movements 1 0 Stool Characteristics Formed Formed Active Medications: Current Medications Acetaminophen (Tylenol) 650 mg PO Q4HR PRN PRN Reason: Mild Pain / Temp above 100 Stop: 11/17/18 22:32 Last Admin: 09/24/18 22:08 Dose: 650 mg Al Hydrox/Mg Hydrox/Simethicone (Maalox) 30 ml PO Q4HR PRN PRN Reason: GI DISTRESS Stop: 11/17/18 22:32 Last Admin: 09/28/18 01:03 Dose: 30 ml Albuterol Sulfate (Albuterol 2.5mg/3ml Neb Ud) 2.5 mg HHN Q6HRT PRN; Protocol PRN Reason: Shortness of Breath Stop: 11/18/18 00:59 Carbidopa/Levodopa (Sinemet 10 Mg-100 Mg) 1 tab PO BID OMARI Stop: 11/18/18 08:59 Last Admin: 09/29/18 17:41 Dose: Not Given Docusate Sodium (Colace) 250 mg PO DAILY OMARI Stop: 11/18/18 08:59 Last Admin: 09/29/18 08:47 Dose: Not Given Escitalopram Oxalate (Lexapro) 5 mg PO DAILY [facility]; Protocol Stop: 11/24/18 08:59 Last Admin: 09/29/18 08:47 Dose: Not Given Lorazepam (Ativan) 0.5 mg PO Q4HR PRN; Protocol PRN Reason: Anxiety Stop: 10/18/18 22:32 Last Admin: 09/27/18 09:40 Dose: 0.5 mg Magnesium Hydroxide (Milk Of Magnesia) 30 ml PO HS PRN PRN Reason: Constipation Multivitamins/Vitamin C (Theragran) 1 tab PO DAILY OMARI Stop: 11/18/18 08:59 Last Admin: 09/29/18 08:47 Dose: Not Given Oxcarbazepine (Trileptal) 300 mg PO BID [facility]; Protocol Stop: 11/27/18 16:59 Last Admin: 09/29/18 17:41 Dose: Not Given Quetiapine Fumarate (Seroquel) 50 mg PO BID [facility]; Protocol Stop: 11/18/18 08:59 Last Admin: 09/29/18 17:41 Dose: Not Given Zolpidem Tartrate (Ambien) 5 mg PO HS PRN PRN Reason: Insomnia Stop: 11/17/18 22:32 Last Admin: 09/27/18 00:04 Dose: 5 mg General: demented HEENT: NC/AT, PERRLA, EOMI, anicteric sclerae, throat clear Neck: Supple, No JVD, No thyromegaly, +2 carotid pulse wo bruit, No LAD Lungs: CTAB Cardiovascular: RRR, Normal S1, Normal S2, without murmur Abdomen: soft, non-tender, non-distended Extremities: clear Neurological: no change Internal Medicine Assmt/Plan - Assessment Assessment: 1.PARKINSON DISEASE. 2.ANEMIA. 3.THROMBOCYTOPENIA. 4.PSYCHOSIS - Plan Plan: CONTINUE ON CURRENT MEDICATION AND DIET. Nutritional Asmnt/Malnutr-PDOC - Dietary Evaluation Malnutrition Findings (Please click <Entered> for more info): Nutritional Asmnt/Malnutrition Start: 09/22/18 16: 00 Text: Status: Complete Freq: Protocol: Document 09/22/18 16:00 LIANAMELCHOR (Rec: 09/22/18 16:03 DURGACINTHIAMELCHOR [email or web address]) Nutritional Asmnt/Malnutrition Patient General Information Nutritional Screening Moderate Risk Diagnosis PSYCHOSIS Pertinent Medical Hx/Surgical Hx PARKINSONS DISEASE, HYPERLIPIDEMIA, PSYCHOSIS Subjective Information PT IS A 73 YEAR OLD MALE FROM [facility] ADMITTED ON 09/18 D/T REFUSAL TO EAT AND NOT PARTICIPATING IN ACTIVITIES. HT: 59 WT: 140 LB (63.64 KG) BMI: 20.67 (NORMAL) GI: SOFT, NON-TENDER BM: 09/22 X1 I/O: 1190/NOT NOTED SKIN: WNL, INTACT, BRUISE RT KNEE TALIB: 17 DIET ORDER: CARDIAC, CCHO 45GM , CHOPPED, MARIE ESTIMATED ENERGY NEEDS: ( GERIATRIC, CBW) [id number] KCALS (25-30 KCALS/ KG) 63-76 G PRO (1.0-1.2 G/KG) 3055-1775 ML (25-30 ML/KG) PT PO INTAKE: 75-100% MEALS PER MEAL/NUTRITION ACTIVITY RECORD. DIETARY IS CURRENTLY PROVIDING AN [id number] KCALS AND 82 GM PRO. PER PT PO INTAKE, THIS IS PROVIDING AN ESTIMATED 1522 KCALS AND 72 GM PRO, TO MEET 96% KCAL AND 100 % PRO NEEDS ADEQUATE. Current Diet Order/ Nutrition Support CARDIAC, CCHO 45GM, CHOPPED, MARIE Pertinent Medications MAALOX (PRN), ALBUTEROL (PRN), COLACE, MOM (PRN), THEREGRAN Pertinent Labs 09/18: HGB/HCT 7.5/22.0, NA 132 , GLUCOSE 130, AST 50, ALK PHOS 977, ALB 3.9 Nutritional Hx/Data Height 1.75 m Height (Calculated Centimeters) 175.3 Current Weight (lbs) 63.503 kg Weight (Calculated Kilograms) 63.5 Weight (Calculated Grams) 58338.9 [place] Body Weight 160 % [place] Body Weight 88 Body Mass Index (BMI) 20.7 Weight Status Approriate GI Symptoms Last BM 09/22 X1 Skin Integrity/Comment: WNL, INTACT, BRUISE RT KNEE TALIB: 17 Estimated Nutritional Goals BEE in Kcals: Using Current wt Calories/Kcals/Kg 25-30 Kcals Calculated 1988-7106 Protein: Using Current wt Protein g/k.0-1.2 Protein Calculated 63-76 Fluid: ml 4142-1670 ML (25-30 ML/KG) Nutritional Problem No current Nutrition Prob Problem NO NUTRITION DIAGNOSIS AT THIS TIME. Etiology N/A Signs/Symptoms: N/A Malnutrition Related to Morbid Obesity Malnutrition related to morbid obesity No Intervention/Recommendation Comments CONTINUE WITH CARDAIC, CCHO 45GM, CHOPPED, MARIE DIET ORDERED. Expected Outcomes/Goals Expected Outcomes/Goals 1. PO INTAKE TO CONTINUE TO MEET > 75% OF NUTRITIONAL NEEDS. 2. MONITOR PO INTAKE, WT, NUTRITION RELATED LABS AND SKIN INTEGRITY. 3. F/U LOW RISK IN 7 DAYS, 09/29
--- NOTE | 2018-09-29 23:14 | Progress Notes ---
DATE: SUBJECTIVE: Chart reviewed and the patient interviewed. Also discussed the patient's condition with the staff and reviewed records and labs. The patient remains in a depressed mood. The patient also is still isolative and withdrawn and wants to be left alone. Also, having episodes of anxiety and mood swings. Otherwise, the patient is compliant with taking his medications with no side effects. ASSESSMENT: The patient is still depressed with mood swings. TREATMENT PLAN: We will continue monitoring his behavior and the condition closely. Also, increase Lexapro to 10 mg every day and we will get Depakote and the Trileptal blood levels. [facility]# [id number]
[2018-09-30] MEDS: Carbidopa/Levodopa 10/100 mg Tab PO SCH ×2 (08:43→16:49)
[2018-09-30] MEDS: Multivitamin Tab PO SCH (08:44)
[2018-09-30] MEDS: Escitalopram Oxalate 5 mg Tab PO SCH (08:44)
--- NOTE | 2018-09-30 22:27 | Internal Medicine Prog Note ---
Internal Medicine Subjective - Subjective Service Date: 09/30/18 Patient seen and examined:: without staff (HE IS DOING WELL) Patient is:: awake, verbal, in bed, talking, confused Per staff patient has:: no adverse event Internal Medicine Objective - Results Result Diagrams: 09/24/18 07:00 09/18/18 19:40 Recent Labs: Laboratory Last Values WBC 8.2 Th/cmm (4.8-10.8) 09/24/18 07:00 RBC 2.27 Mil/cmm (3.80-5.80) L 09/24/18 07:00 Hgb 7.0 gm/dL (12-16) L* 09/24/18 07:00 Hct 21.1 % (41.0-60) L 09/24/18 07:00 MCV 92.9 fl (80-99) 09/24/18 07:00 MCH 31.1 pg (27.0-31.0) H 09/24/18 07:00 MCHC Differential 33.4 pg (28.0-36.0) 09/24/18 07:00 RDW 23.7 % (11.5-20.0) H 09/24/18 07:00 Plt Count 34 Th/cmm (150-400) L 09/24/18 07:00 MPV 9.0 fl 09/24/18 07:00 Add Manual Diff YES 09/24/18 07:00 Band Neutrophils % 0 % (0-10) 09/24/18 07:00 Neutrophils (Manual) 40 % (40-80) 09/24/18 07:00 Lymphocytes 50 % (20-50) 09/24/18 07:00 Monocytes 9 % (2-10) 09/24/18 07:00 Eosinophils 1 % (0-5) 09/24/18 07:00 Basophils 0 % (0-3) 09/24/18 07:00 Platelet Estimate DECREASED PLATELETS (NORMAL) 09/24/18 07:00 Anisocytosis 2+ 09/24/18 07:00 Sodium 132 mEq/L (136-145) L 09/18/18 19:40 Potassium 4.1 mEq/L (3.5-5.1) 09/18/18 19:40 Chloride 96 mEq/L (98-107) L 09/18/18 19:40 Carbon Dioxide 28.1 mEq/L (21.0-31.0) 09/18/18 19:40 Anion Gap 12.0 (7.0-16.0) 09/18/18 19:40 BUN 25 mg/dL (7-25) 09/18/18 19:40 Creatinine 0.8 mg/dL (0.7-1.3) 09/18/18 19:40 Est GFR ( Amer) TNP 09/18/18 19:40 Est GFR (Non-Af Amer) TNP 09/18/18 19:40 BUN/Creatinine Ratio 31.3 09/18/18 19:40 Glucose 130 mg/dL (70-105) H 09/18/18 19:40 Calcium 9.5 mg/dL (8.6-10.3) 09/18/18 19:40 Total Bilirubin 0.5 mg/dL (0.3-1.0) 09/18/18 19:40 AST 50 U/L (13-39) H 09/18/18 19:40 ALT 9 U/L (7-52) 09/18/18 19:40 Alkaline Phosphatase 977 U/L (34-104) H 09/18/18 19:40 Total Protein 6.4 gm/dL (6.0-8.3) 09/18/18 19:40 Albumin 3.9 gm/dL (4.2-5.5) L 09/18/18 19:40 Globulin 2.5 gm/dL 09/18/18 19:40 Albumin/Globulin Ratio 1.6 (1.0-1.8) 09/18/18 19:40 Triglycerides 226 mg/dL (<150) H 09/18/18 19:40 Cholesterol 188 mg/dL (<200) 09/18/18 19:40 LDL Cholesterol Direct 95 mg/dL (75-193) 09/18/18 19:40 HDL Cholesterol 52 mg/dL (23-92) 09/18/18 19:40 TSH 2.57 uIU/ml (0.34-5.60) 09/18/18 19:40 Urine Source CLEAN C 09/19/18 01:10 Urine Color YELLOW 09/19/18 01:10 Urine Clarity CLEAR (CLEAR) 09/19/18 01:10 Urine pH 6.0 (4.6 - 8.0) 09/19/18 01:10 Ur Specific [place] 1.020 (1.005-1.030) 09/19/18 01:10 Urine Protein TRACE mg/dL (NEGATIVE) 09/19/18 01:10 Urine Glucose (UA) NEGATIVE mg/dL (NEGATIVE) 09/19/18 01:10 Urine Ketones NEGATIVE mg/dL (NEGATIVE) 09/19/18 01:10 Urine Blood TRACE (NEGATIVE) 09/19/18 01:10 Urine Nitrate NEGATIVE (NEGATIVE) 09/19/18 01:10 Urine Bilirubin NEGATIVE (NEGATIVE) 09/19/18 01:10 Urine Urobilinogen 0.2 E.U./dL (0.2 - 1.0) 09/19/18 01:10 Ur Leukocyte Esterase NEGATIVE (NEGATIVE) 09/19/18 01:10 Urine RBC 0-2 /hpf (0-5) H 09/19/18 01:10 Urine WBC 0-2 /hpf (0-5) 09/19/18 01:10 Ur Epithelial Cells NONE SEEN /lpf (FEW) 09/19/18 01:10 Urine Bacteria FEW /hpf (NONE SEEN) 09/19/18 01:10 Urine Sperm FEW /hpf (NONE SEEN) 09/19/18 01:10 RPR NONREACTIVE (NONREACTIVE) 09/18/18 19:40 - Physical Exam Vitals and I&O: Vital Signs Temp 97.6 F 09/30/18 19:48 Pulse 88 09/30/18 19:48 Resp 20 09/30/18 19:48 BP 100/52 09/30/18 19:48 Pulse Ox 94 09/30/18 19:48 Intake & Output 09/30/18 09/30/18 10/01/18 06:59 18:59 06:59 Intake Total 180 800 120 Balance 180 800 120 Intake: Oral 180 800 120 Other: # Voids 2 3 3 # Bowel Movements 0 0 0 Stool Characteristics Formed Active Medications: Current Medications Acetaminophen (Tylenol) 650 mg PO Q4HR PRN PRN Reason: Mild Pain / Temp above 100 Stop: 11/17/18 22:32 Last Admin: 09/24/18 22:08 Dose: 650 mg Al Hydrox/Mg Hydrox/Simethicone (Maalox) 30 ml PO Q4HR PRN PRN Reason: GI DISTRESS Stop: 11/17/18 22:32 Last Admin: 09/28/18 01:03 Dose: 30 ml Albuterol Sulfate (Albuterol 2.5mg/3ml Neb Ud) 2.5 mg HHN Q6HRT PRN; Protocol PRN Reason: Shortness of Breath Stop: 11/18/18 00:59 Carbidopa/Levodopa (Sinemet 10 Mg-100 Mg) 1 tab PO BID OMARI Stop: 11/18/18 08:59 Last Admin: 09/30/18 16:49 Dose: Not Given Docusate Sodium (Colace) 250 mg PO DAILY OMARI Stop: 11/18/18 08:59 Last Admin: 09/30/18 08:43 Dose: Not Given Escitalopram Oxalate (Lexapro) 5 mg PO DAILY [facility]; Protocol Stop: 11/24/18 08:59 Last Admin: 09/30/18 08:44 Dose: Not Given Lorazepam (Ativan) 0.5 mg PO Q4HR PRN; Protocol PRN Reason: Anxiety Stop: 10/18/18 22:32 Last Admin: 09/30/18 13:35 Dose: 0.5 mg Magnesium Hydroxide (Milk Of Magnesia) 30 ml PO HS PRN PRN Reason: Constipation Multivitamins/Vitamin C (Theragran) 1 tab PO DAILY OMARI Stop: 11/18/18 08:59 Last Admin: 09/30/18 08:44 Dose: Not Given Oxcarbazepine (Trileptal) 300 mg PO BID [facility]; Protocol Stop: 11/27/18 16:59 Last Admin: 09/30/18 16:49 Dose: Not Given Quetiapine Fumarate (Seroquel) 50 mg PO BID [facility]; Protocol Stop: 11/18/18 08:59 Last Admin: 09/30/18 16:49 Dose: Not Given Zolpidem Tartrate (Ambien) 5 mg PO HS PRN PRN Reason: Insomnia Stop: 11/17/18 22:32 Last Admin: 09/27/18 00:04 Dose: 5 mg General: demented HEENT: NC/AT, PERRLA, EOMI, anicteric sclerae, throat clear Neck: Supple, No JVD, No thyromegaly, +2 carotid pulse wo bruit, No LAD Lungs: CTAB Cardiovascular: RRR, Normal S1, Normal S2, without murmur Abdomen: soft, non-tender, non-distended Extremities: clear Neurological: no change Internal Medicine Assmt/Plan - Assessment Assessment: 1.PARKINSON DISEASE. 2.ANEMIA. 3.THROMBOCYTOPENIA. 4.PSYCHOSIS - Plan Plan: CONTINUE ON CURRENT MEDICATION AND DIET. Nutritional Asmnt/Malnutr-PDOC - Dietary Evaluation Malnutrition Findings (Please click <Entered> for more info): Nutritional Asmnt/Malnutrition Start: 09/22/18 16: 00 Text: Status: Complete Freq: Protocol: Document 09/22/18 16:00 LIANAMELCHOR (Rec: 09/22/18 16:03 LIANAMELCHOR [email or web address]) Nutritional Asmnt/Malnutrition Patient General Information Nutritional Screening Moderate Risk Diagnosis PSYCHOSIS Pertinent Medical Hx/Surgical Hx PARKINSONS DISEASE, HYPERLIPIDEMIA, PSYCHOSIS Subjective Information PT IS A 73 YEAR OLD MALE FROM [facility] ADMITTED ON 09/18 D/T REFUSAL TO EAT AND NOT PARTICIPATING IN ACTIVITIES. HT: 59 WT: 140 LB (63.64 KG) BMI: 20.67 (NORMAL) GI: SOFT, NON-TENDER BM: 09/22 X1 I/O: 1190/NOT NOTED SKIN: WNL, INTACT, BRUISE RT KNEE TALIB: 17 DIET ORDER: CARDIAC, CCHO 45GM , CHOPPED, MARIE ESTIMATED ENERGY NEEDS: ( GERIATRIC, CBW) [id number] KCALS (25-30 KCALS/ KG) 63-76 G PRO (1.0-1.2 G/KG) 7957-3913 ML (25-30 ML/KG) PT PO INTAKE: 75-100% MEALS PER MEAL/NUTRITION ACTIVITY RECORD. DIETARY IS CURRENTLY PROVIDING AN [id number] KCALS AND 82 GM PRO. PER PT PO INTAKE, THIS IS PROVIDING AN ESTIMATED 1522 KCALS AND 72 GM PRO, TO MEET 96% KCAL AND 100 % PRO NEEDS ADEQUATE. Current Diet Order/ Nutrition Support CARDIAC, CCHO 45GM, CHOPPED, MARIE Pertinent Medications MAALOX (PRN), ALBUTEROL (PRN), COLACE, MOM (PRN), THEREGRAN Pertinent Labs 09/18: HGB/HCT 7.5/22.0, NA 132 , GLUCOSE 130, AST 50, ALK PHOS 977, ALB 3.9 Nutritional Hx/Data Height 1.75 m Height (Calculated Centimeters) 175.3 Current Weight (lbs) 63.503 kg Weight (Calculated Kilograms) 63.5 Weight (Calculated Grams) 21723.9 [place] Body Weight 160 % [place] Body Weight 88 Body Mass Index (BMI) 20.7 Weight Status Approriate GI Symptoms Last BM 09/22 X1 Skin Integrity/Comment: WNL, INTACT, BRUISE RT KNEE TALIB: 17 Estimated Nutritional Goals BEE in Kcals: Using Current wt Calories/Kcals/Kg 25-30 Kcals Calculated 9504-7476 Protein: Using Current wt Protein g/k.0-1.2 Protein Calculated 63-76 Fluid: ml 5937-6127 ML (25-30 ML/KG) Nutritional Problem No current Nutrition Prob Problem NO NUTRITION DIAGNOSIS AT THIS TIME. Etiology N/A Signs/Symptoms: N/A Malnutrition Related to Morbid Obesity Malnutrition related to morbid obesity No Intervention/Recommendation Comments CONTINUE WITH CARDAIC, CCHO 45GM, CHOPPED, MARIE DIET ORDERED. Expected Outcomes/Goals Expected Outcomes/Goals 1. PO INTAKE TO CONTINUE TO MEET > 75% OF NUTRITIONAL NEEDS. 2. MONITOR PO INTAKE, WT, NUTRITION RELATED LABS AND SKIN INTEGRITY. 3. F/U LOW RISK IN 7 DAYS, 09/29
--- NOTE | 2018-09-30 23:23 | Progress Notes ---
DATE: SUBJECTIVE: Chart was reviewed and the patient interviewed. Also discussed the patient's condition with the staff and reviewed records and labs. The patient continued to be preoccupied and he is still easily agitated and irritable. The patient also is suspicious and is paranoid. Also, interacting minimally with others. The patient refused all medications for no apparent reason. He still needs lots of redirections. ASSESSMENT: The patient is psychotic. TREATMENT PLAN: Continue to monitor behavior and condition closely. Also, advised the patient to take his psychotropic medications and continue to follow up. JOB# [id number]
[2018-10-01] MEDS: Carbidopa/Levodopa 10/100 mg Tab PO SCH ×2 (08:07→17:02)
[2018-10-01] MEDS: Escitalopram Oxalate 5 mg Tab PO SCH (08:07)
[2018-10-01] MEDS: Multivitamin Tab PO SCH (08:07)
--- NOTE | 2018-10-01 20:55 | Progress Notes ---
DATE: 10/01/2018 SUBJECTIVE: Chart was reviewed and the patient interviewed. Also discussed the patient's condition with the staff and reviewed records and labs. The patient is still in angry and in irritable mood. The patient also is still suspicious and is still paranoid with severe mood swings. The patient also is interacting minimally with others. He also is still restless and easily agitated. The patient is refusing to take psychotropic medications for no apparent reason. ASSESSMENT: The patient is still psychotic and agitated and can be dangerous to others. TREATMENT PLAN: We will continue monitoring his behavior and condition closely. Also, continue working on compliance with taking medications. JOB# [id number]
--- NOTE | 2018-10-01 22:24 | Internal Medicine Prog Note ---
Internal Medicine Subjective - Subjective Service Date: 10/01/18 Patient seen and examined:: without staff (HE FEELS WELL) Patient is:: awake, verbal, in bed, talking, confused Per staff patient has:: no adverse event Internal Medicine Objective - Results Result Diagrams: 09/24/18 07:00 09/18/18 19:40 Recent Labs: Laboratory Last Values WBC 8.2 Th/cmm (4.8-10.8) 09/24/18 07:00 RBC 2.27 Mil/cmm (3.80-5.80) L 09/24/18 07:00 Hgb 7.0 gm/dL (12-16) L* 09/24/18 07:00 Hct 21.1 % (41.0-60) L 09/24/18 07:00 MCV 92.9 fl (80-99) 09/24/18 07:00 MCH 31.1 pg (27.0-31.0) H 09/24/18 07:00 MCHC Differential 33.4 pg (28.0-36.0) 09/24/18 07:00 RDW 23.7 % (11.5-20.0) H 09/24/18 07:00 Plt Count 34 Th/cmm (150-400) L 09/24/18 07:00 MPV 9.0 fl 09/24/18 07:00 Add Manual Diff YES 09/24/18 07:00 Band Neutrophils % 0 % (0-10) 09/24/18 07:00 Neutrophils (Manual) 40 % (40-80) 09/24/18 07:00 Lymphocytes 50 % (20-50) 09/24/18 07:00 Monocytes 9 % (2-10) 09/24/18 07:00 Eosinophils 1 % (0-5) 09/24/18 07:00 Basophils 0 % (0-3) 09/24/18 07:00 Platelet Estimate DECREASED PLATELETS (NORMAL) 09/24/18 07:00 Anisocytosis 2+ 09/24/18 07:00 Sodium 132 mEq/L (136-145) L 09/18/18 19:40 Potassium 4.1 mEq/L (3.5-5.1) 09/18/18 19:40 Chloride 96 mEq/L (98-107) L 09/18/18 19:40 Carbon Dioxide 28.1 mEq/L (21.0-31.0) 09/18/18 19:40 Anion Gap 12.0 (7.0-16.0) 09/18/18 19:40 BUN 25 mg/dL (7-25) 09/18/18 19:40 Creatinine 0.8 mg/dL (0.7-1.3) 09/18/18 19:40 Est GFR ( Amer) TNP 09/18/18 19:40 Est GFR (Non-Af Amer) TNP 09/18/18 19:40 BUN/Creatinine Ratio 31.3 09/18/18 19:40 Glucose 130 mg/dL (70-105) H 09/18/18 19:40 Calcium 9.5 mg/dL (8.6-10.3) 09/18/18 19:40 Total Bilirubin 0.5 mg/dL (0.3-1.0) 09/18/18 19:40 AST 50 U/L (13-39) H 09/18/18 19:40 ALT 9 U/L (7-52) 09/18/18 19:40 Alkaline Phosphatase 977 U/L (34-104) H 09/18/18 19:40 Total Protein 6.4 gm/dL (6.0-8.3) 09/18/18 19:40 Albumin 3.9 gm/dL (4.2-5.5) L 09/18/18 19:40 Globulin 2.5 gm/dL 09/18/18 19:40 Albumin/Globulin Ratio 1.6 (1.0-1.8) 09/18/18 19:40 Triglycerides 226 mg/dL (<150) H 09/18/18 19:40 Cholesterol 188 mg/dL (<200) 09/18/18 19:40 LDL Cholesterol Direct 95 mg/dL (75-193) 09/18/18 19:40 HDL Cholesterol 52 mg/dL (23-92) 09/18/18 19:40 TSH 2.57 uIU/ml (0.34-5.60) 09/18/18 19:40 Urine Source CLEAN C 09/19/18 01:10 Urine Color YELLOW 09/19/18 01:10 Urine Clarity CLEAR (CLEAR) 09/19/18 01:10 Urine pH 6.0 (4.6 - 8.0) 09/19/18 01:10 Ur Specific [place] 1.020 (1.005-1.030) 09/19/18 01:10 Urine Protein TRACE mg/dL (NEGATIVE) 09/19/18 01:10 Urine Glucose (UA) NEGATIVE mg/dL (NEGATIVE) 09/19/18 01:10 Urine Ketones NEGATIVE mg/dL (NEGATIVE) 09/19/18 01:10 Urine Blood TRACE (NEGATIVE) 09/19/18 01:10 Urine Nitrate NEGATIVE (NEGATIVE) 09/19/18 01:10 Urine Bilirubin NEGATIVE (NEGATIVE) 09/19/18 01:10 Urine Urobilinogen 0.2 E.U./dL (0.2 - 1.0) 09/19/18 01:10 Ur Leukocyte Esterase NEGATIVE (NEGATIVE) 09/19/18 01:10 Urine RBC 0-2 /hpf (0-5) H 09/19/18 01:10 Urine WBC 0-2 /hpf (0-5) 09/19/18 01:10 Ur Epithelial Cells NONE SEEN /lpf (FEW) 09/19/18 01:10 Urine Bacteria FEW /hpf (NONE SEEN) 09/19/18 01:10 Urine Sperm FEW /hpf (NONE SEEN) 09/19/18 01:10 RPR NONREACTIVE (NONREACTIVE) 09/18/18 19:40 - Physical Exam Vitals and I&O: Vital Signs Temp 97.6 F 09/30/18 19:48 Pulse 101 10/01/18 19:13 Resp 20 10/01/18 19:13 BP 100/52 09/30/18 19:48 Pulse Ox 94 10/01/18 19:13 Intake & Output 10/01/18 10/01/18 10/02/18 06:59 18:59 06:59 Intake Total 280 580 120 Balance 280 580 120 Intake: Oral 280 460 120 Other 120 Other: # Voids 2 3 3 # Bowel Movements 1 0 0 Active Medications: Current Medications Acetaminophen (Tylenol) 650 mg PO Q4HR PRN PRN Reason: Mild Pain / Temp above 100 Stop: 11/17/18 22:32 Last Admin: 09/24/18 22:08 Dose: 650 mg Al Hydrox/Mg Hydrox/Simethicone (Maalox) 30 ml PO Q4HR PRN PRN Reason: GI DISTRESS Stop: 11/17/18 22:32 Last Admin: 09/28/18 01:03 Dose: 30 ml Albuterol Sulfate (Albuterol 2.5mg/3ml Neb Ud) 2.5 mg HHN Q6HRT PRN; Protocol PRN Reason: Shortness of Breath Stop: 11/18/18 00:59 Carbidopa/Levodopa (Sinemet 10 Mg-100 Mg) 1 tab PO BID O[facility]I Stop: 11/18/18 08:59 Last Admin: 10/01/18 17:02 Dose: Not Given Docusate Sodium (Colace) 250 mg PO DAILY [facility] Stop: 11/18/18 08:59 Last Admin: 10/01/18 08:07 Dose: Not Given Escitalopram Oxalate (Lexapro) 5 mg PO DAILY [facility]; Protocol Stop: 11/24/18 08:59 Last Admin: 10/01/18 08:07 Dose: Not Given Lorazepam (Ativan) 0.5 mg PO Q4HR PRN; Protocol PRN Reason: Anxiety Stop: 10/18/18 22:32 Last Admin: 09/30/18 13:35 Dose: 0.5 mg Magnesium Hydroxide (Milk Of Magnesia) 30 ml PO HS PRN PRN Reason: Constipation Multivitamins/Vitamin C (Theragran) 1 tab PO DAILY [facility] Stop: 11/18/18 08:59 Last Admin: 10/01/18 08:07 Dose: 1 tab Oxcarbazepine (Trileptal) 300 mg PO BID [facility]; Protocol Stop: 11/27/18 16:59 Last Admin: 10/01/18 17:02 Dose: Not Given Quetiapine Fumarate (Seroquel) 50 mg PO BID [facility]; Protocol Stop: 11/18/18 08:59 Last Admin: 10/01/18 17:03 Dose: Not Given Zolpidem Tartrate (Ambien) 5 mg PO HS PRN PRN Reason: Insomnia Stop: 11/17/18 22:32 Last Admin: 09/27/18 00:04 Dose: 5 mg General: demented HEENT: NC/AT, PERRLA, EOMI, anicteric sclerae, throat clear Neck: Supple, No JVD, No thyromegaly, +2 carotid pulse wo bruit, No LAD Lungs: CTAB Cardiovascular: RRR, Normal S1, Normal S2, without murmur Abdomen: soft, non-tender, non-distended Extremities: clear Neurological: no change Internal Medicine Assmt/Plan - Assessment Assessment: 1.PARKINSON DISEASE. 2.ANEMIA. 3.THROMBOCYTOPENIA. 4.PSYCHOSIS - Plan Plan: CONTINUE ON CURRENT MEDICATION AND DIET. Nutritional Asmnt/Malnutr-PDOC - Dietary Evaluation Malnutrition Findings (Please click <Entered> for more info): Nutritional Asmnt/Malnutrition Start: 09/22/18 16: 00 Text: Status: Complete Freq: Protocol: Document 09/22/18 16:00 LIANAMELCHOR (Rec: 09/22/18 16:03 CHET [email or web address]) Nutritional Asmnt/Malnutrition Patient General Information Nutritional Screening Moderate Risk Diagnosis PSYCHOSIS Pertinent Medical Hx/Surgical Hx PARKINSONS DISEASE, HYPERLIPIDEMIA, PSYCHOSIS Subjective Information PT IS A 73 YEAR OLD MALE FROM INTERMEDIATE ADMITTED ON 09/18 D/T REFUSAL TO EAT AND NOT PARTICIPATING IN ACTIVITIES. HT: 59 WT: 140 LB (63.64 KG) BMI: 20.67 (NORMAL) GI: SOFT, NON-TENDER BM: 09/22 X1 I/O: 1190/NOT NOTED SKIN: WNL, INTACT, BRUISE RT KNEE TALIB: 17 DIET ORDER: CARDIAC, CCHO 45GM , CHOPPED, MARIE ESTIMATED ENERGY NEEDS: ( GERIATRIC, CBW) 3491-1707 KCALS (25-30 KCALS/ KG) 63-76 G PRO (1.0-1.2 G/KG) 0418-7463 ML (25-30 ML/KG) PT PO INTAKE: 75-100% MEALS PER MEAL/NUTRITION ACTIVITY RECORD. DIETARY IS CURRENTLY PROVIDING AN [id number] KCALS AND 82 GM PRO. PER PT PO INTAKE, THIS IS PROVIDING AN ESTIMATED 1522 KCALS AND 72 GM PRO, TO MEET 96% KCAL AND 100 % PRO NEEDS ADEQUATE. Current Diet Order/ Nutrition Support CARDIAC, CCHO 45GM, CHOPPED, MARIE Pertinent Medications MAALOX (PRN), ALBUTEROL (PRN), COLACE, MOM (PRN), THEREGRAN Pertinent Labs 09/18: HGB/HCT 7.5/22.0, NA 132 , GLUCOSE 130, AST 50, ALK PHOS 977, ALB 3.9 Nutritional Hx/Data Height 1.75 m Height (Calculated Centimeters) 175.3 Current Weight (lbs) 63.503 kg Weight (Calculated Kilograms) 63.5 Weight (Calculated Grams) 62285.9 [place] Body Weight 160 % [place] Body Weight 88 Body Mass Index (BMI) 20.7 Weight Status Approriate GI Symptoms Last BM 09/22 X1 Skin Integrity/Comment: WNL, INTACT, BRUISE RT KNEE TALIB: 17 Estimated Nutritional Goals BEE in Kcals: Using Current wt Calories/Kcals/Kg 25-30 Kcals Calculated 6314-6873 Protein: Using Current wt Protein g/k.0-1.2 Protein Calculated 63-76 Fluid: ml 0167-6555 ML (25-30 ML/KG) Nutritional Problem No current Nutrition Prob Problem NO NUTRITION DIAGNOSIS AT THIS TIME. Etiology N/A Signs/Symptoms: N/A Malnutrition Related to Morbid Obesity Malnutrition related to morbid obesity No Intervention/Recommendation Comments CONTINUE WITH CARDAIC, CCHO 45GM, CHOPPED, MARIE DIET ORDERED. Expected Outcomes/Goals Expected Outcomes/Goals 1. PO INTAKE TO CONTINUE TO MEET > 75% OF NUTRITIONAL NEEDS. 2. MONITOR PO INTAKE, WT, NUTRITION RELATED LABS AND SKIN INTEGRITY. 3. F/U LOW RISK IN 7 DAYS, 09/29
[2018-10-02] MEDS: Multivitamin Tab PO SCH (08:27)
[2018-10-02] MEDS: Escitalopram Oxalate 5 mg Tab PO SCH (08:27)
[2018-10-02] MEDS: Carbidopa/Levodopa 10/100 mg Tab PO SCH (08:27)
--- NOTE | 2018-10-03 18:57 | Discharge Summary ---
DATE OF DISCHARGE: 10/02/2018 AGE: 73 SEX: Male. PHYSICIAN: Dr. Jones. FINAL DIAGNOSIS/PRIMARY DIAGNOSIS: Chronic undifferentiated schizophrenia. REASON FOR HOSPITALIZATION: The patient was admitted to the hospital from [facility] because of increased agitation and psychosis. The patient also has been in irritable and angry mood. The patient also has been suspicious and paranoid. HOSPITAL COURSE: The patient continued to be paranoid and suspicious. The patient was irritable and easily agitated. He also was continued to take Trileptal in a dose of 300 mg twice a day and Lexapro 5 mg daily. Seroquel in a dose of 50 mg twice a day was added that helped the patient's agitation and irritability. Gradually, the patient's affect was brighter. The patient was less irritable and less agitated. He also interacted more with peers and with others. The patient was not suicidal or homicidal, and he was compliant with taking his medications with no side effects of medications. The patient was discharged back to [facility] with plans for followup there. Physical exam of the patient showed no major medical problems while in the hospital. AFTER DISCHARGE PLANS: The patient discharged from the hospital and returned to [facility] with plans for follow him up there. EXPECTED OUTCOME AFTER DISCHARGE: Fair, if the patient continues to take the psychotropic medications and continue with his discharge plans. [facility]# [id number]
== END 2018-10-02 11:45 | DRG 885 ==
LOC: ER 19:17 → GERO 21:30
PROVIDERS: ADMIT Psychiatry & Neurology Psychiatry; ATTEND Psychiatry & Neurology Psychiatry
DX: F20.5 Residual schizophrenia (principal); D61.818 Other pancytopenia; F29 Unspecified psychosis not due to a substance or known physiological condition; G20 Parkinson's disease; D64.9 Anemia, unspecified; D69.6 Thrombocytopenia, unspecified; I10 Essential (primary) hypertension; E11.9 Type 2 diabetes mellitus without complications; E78.5 Hyperlipidemia, unspecified; J44.9 Chronic obstructive pulmonary disease, unspecified; K21.9 Gastro-esophageal reflux disease without esophagitis; F31.9 Bipolar disorder, unspecified; F41.9 Anxiety disorder, unspecified; Z60.4 Social exclusion and rejection; Z88.8 Allergy status to other drugs, medicaments and biological substances; Z87.11 Personal history of peptic ulcer disease
CPT/HCPCS: 36415-UA; 80053-TC; 80061-TC; 81001-TC; 83036-90; 84443-TC; 85007-TC; 85025-TC; 86592-TC; 90899; 93005; 94760; G0410; Z7610

== ENCOUNTER 2018-10-13 11:58 | Inpatient (IN) | payer MEDICARE, MEDICAID ==
[2018-10-13] MEDS ORDERED: Sodium Chloride 0.9% 1,000 ML IV ONE (12:12)
[2018-10-13 12:52] LABS: ALB/GLOB RATIO 1.4 (1.0-1.8); ALBUMIN 3.2 gm/dL (4.2-5.5); ALKALINE PHOSPHATASE 848 U/L (34-104); ANION GAP 10.8 (7.0-16.0); BILIRUBIN,TOTAL 0.5 mg/dL (0.3-1.0); BUN - UREA NITROGEN 25 mg/dL (7-25); CALCIUM SERUM 8.8 mg/dL (8.6-10.3); CARBON DIOXIDE 28.2 mEq/L (21.0-31.0); CHLORIDE 103 mEq/L (98-107); CREATININE - SERUM 0.7 mg/dL (0.7-1.3); GLUCOSE 101 mg/dL (70-105); MEAN CELL VOLUME 95.9 fl (80-99); MEAN CORPUSCULAR HEMOGLOBIN 32.4 pg (27.0-31.0); MEAN CORPUSCULAR HGB CONC 33.8 pg (28.0-36.0); RED CELL DISTRIBUTION WIDTH 25.7 % (11.5-20.0); SGOT 36 U/L (13-39); SGPT/ALT 4 U/L (7-52); SODIUM SERUM 138 mEq/L (136-145); TOTAL PROTEIN,SERUM 5.5 gm/dL (6.0-8.3); WHITE BLOOD COUNT 4.8 Th/cmm (4.8-10.8)
[2018-10-13 13:02] LABS: HEMATOCRIT 14.4 % (41.0-60); HEMOGLOBIN 4.9 gm/dL (12-16); PLATELET COUNT 23 Th/cmm (150-400)
[2018-10-13 13:28] LABS: EOSINOPHIL 3 % (0-5); LYMPHOCYTE 37 % (20-50); MONOCYTE 7 % (2-10); NEUTROPHILS 43 % (40-80)
[2018-10-13 13:29] LABS: ANISOCYTOSIS 2+; CORRECTED WBC 4.4 Th/cmm; PLATELET ESTIMATE DECREASED PLATELETS (NORMAL)
--- NOTE | 2018-10-13 13:56 | Diagnostic Imaging Report ---
CHEST X-RAY: AP view INDICATION: CHF COMPARISON: 03/25/2018 FINDINGS: Increased interstitial lung markings are noted. Heart size is normal. Tortuous aorta is noted. No focal consolidation. No effusions. Degenerative changes spine noted. Somewhat heterogeneously of bilateral proximal humeri are noted. IMPRESSION: Increased interstitial lung markings. Interstitial infiltrates or a marginal degree of congestion cannot be excluded, please correlate clinically. Somewhat heterogeneity of bilateral proximal humeri. Changes associated with bone infarcts or other metabolic abnormalities cannot be excluded. Recommend clinical portion and follow-up. If indicated MRI or nuclear medicine bone scan follow-up may be obtained for further assessment. Tortuous aorta.
--- NOTE | 2018-10-13 14:09 | ED Physician Chart ---
ED Chief Complaint/HPI - Patient Information Date Seen:: 10/13/18 Time Seen:: 12:45 Chief Complaint:: sent for low History of Present Illness:: from convalescent with 4 hmg no report active bleed no stomach pain Allergies:: Allergies Allergy/AdvReac Type Severity Reaction Status Date / Time clozapine [From Clozaril] Allergy Verified 09/18/18 19:35 haloperidol [From Haldol] Allergy Verified 09/18/18 19:35 Vitals:: Vital Signs - 8 hr 10/13/18 10/13/18 12:23 14:00 Temp 98.2 F HR 94 97 RR 22 18 BP 109/65 109/65 O2 Sat % 94 100 ED Review of Systems - Review of Systems General/Constitutional: No fever ED Past Medical History - Past Medical History Past Medical History: No significant medical hx (psyche), HTN, DM, Asthma/COPD ( psyche bipolar) Family Medical History - Family Member Mother History Unknown: Yes Ethnicity: Unknown Living Status: Unknown Hx Family Cancer: (Unknown) Hx Family Coronary Artery Disease: (Unknown) Hx Family Congestive Heart Failure: (Unknown) Hx Family Hypertension: (Unknown) Hx Family Stroke: (Unknown) Hx Family Diabetes: (Unknown) Hx Family Seizures: (Unknown) Hx Family Dementia: (Unknown) Hx Family AIDS: (Unknown) Hx Family COPD: (Unknown) Hx Family Hepatitis: (Unknown) Hx Family Psychiatric Problems: (Unknown) Hx Family Tuberculosis: (Unknown) ED Physical Exam - Physical Examination Head: Atraumatic Eyes: Lids, conjuctiva normal (pale conj) ENMT: External ears, nose nl Neck: Nontender Respiratory: Nl effort/Exclusion Cardio Vascular: RRR GI: No tenderness/rebounding/guarding Neuro/Psych: Alert/oriented (calling out) ED Labs/Radiology/EKG Results - Lab Results Results: Laboratory Tests 10/13/18 10/13/18 10/13/18 12:20 12:20 12:20 WBC 4.8 Corrected WBC (auto) 4.4 RBC 1.50 L Hgb 4.9 L* Hct 14.4 L* MCV 95.9 MCH 32.4 H MCHC Differential 33.8 RDW 25.7 H Plt Count 23 L* MPV 7.5 Add Manual Diff YES Neutrophils (Manual) 43 Lymphocytes 37 Monocytes 7 Eosinophils 3 Nucleated RBCs 10.0 H Platelet Estimate DECREASED PLATELETS Anisocytosis 2+ Microcytosis 1+ RBC Morph Micro Appear ABNORMAL Sodium 138 Potassium 4.0 Chloride 103 Carbon Dioxide 28.2 Anion Gap 10.8 BUN 25 Creatinine 0.7 Est GFR ( Amer) TNP Est GFR (Non-Af Amer) TNP BUN/Creatinine Ratio 35.7 Glucose 101 Calcium 8.8 Total Bilirubin 0.5 AST 36 ALT 4 L Alkaline Phosphatase 848 H Total Protein 5.5 L Albumin 3.2 L Globulin 2.3 Albumin/Globulin Ratio 1.4 Blood Type O POSITIVE Antibody Screen NEGATIVE Crossmatch See Detail ED Assessment - Assessment General Assessment: pronounced anemia chronic but critical ED Septic Shock - . Is Septic Shock (SBP<90, OR Lactate>4 mmol\L) present?: No - <6hrs of presentation: Vital Signs: Vital Signs - 8 hr 10/13/18 10/13/18 12:23 14:00 Temp 98.2 F HR 94 97 RR 22 18 BP 109/65 109/65 O2 Sat % 94 100 ED Reassessment (Disposition) - Patient Disposition Discharge/Transfer:: Acute Care w/in this hosp
[2018-10-13 16:14] VITALS: BP 111/71
--- NOTE | 2018-10-13 20:20 | History & Physical ---
ADMIT DATE: 10/13/2018 CHIEF COMPLAINT: Severe anemia. HISTORY OF PRESENT ILLNESS: The patient is a 73-year-old male with long history of Parkinson disease, psychosis, presented to the Emergency Room with severe anemia. Initial workup is significant for hemoglobin 4.3, platelets 27. The patient denies any bleeding, admitted to the hospital, 3 units of blood ordered to be transfused. Dr. Smith consulted on the case. PAST MEDICAL HISTORY: Significant for Parkinson disease, chronic anemia, degenerative joint disease and psychosis. PAST SURGICAL HISTORY: No recent surgery. ALLERGIES: HALOPERIDOL and CLONAZEPAM. SOCIAL HISTORY: No smoking, no alcohol, no drug. FAMILY HISTORY: Noncontributory. REVIEW OF SYSTEMS: RENAL SYSTEM: No history of chronic renal disorder. CARDIOVASCULAR SYSTEM: No coronary artery disease. ENDOCRINE SYSTEM: No diabetes or thyroid problem. GASTROINTESTINAL SYSTEM: No upper or lower gastrointestinal bleed. NEUROLOGICAL SYSTEM: Has history of Parkinson disease. HEMATOLOGICAL SYSTEM: He has history of chronic anemia, thrombocytopenia. RESPIRATORY SYSTEM: No asthma. GENITOURINARY: No dysuria or hematuria. PHYSICAL EXAMINATION: GENERAL: He is awake, not coherent. VITAL SIGNS: Temperature 97.2, heart rate 100, blood pressure 111/71. HEENT: Normocephalic. Pupils reactive to light and accommodation. Sclerae clear. NECK: Supple. Negative for lymphadenopathy, JVD or bruit. CHEST: Entry of air bilaterally normal. No rhonchi or wheezing. HEART: S1, S2. No gallop rhythm. ABDOMEN: Soft, bowel sounds positive. EXTREMITIES: No edema. NEUROLOGIC: He is awake, not coherent. LABORATORY DATA: White blood cells 4.8, hemoglobin 14.9, hematocrit 40.4, platelets 23,000. Sodium 138, potassium 4, BUN 25, creatinine 0.7, alkaline phosphatase 848. ASSESSMENT: 1. Severe anemia. 2. Thrombocytopenia. 3. Parkinson disease. 4. Psychosis. PLAN: The patient in the hospital in telemetry under Dr. Salinas's service, started him on regular diet, 3 units of blood ordered. Dr. Smith consulted on the case. The patient is a full code. JOB# [id number]
[2018-10-14] MEDS: Escitalopram Oxalate 5 mg Tab PO SCH (09:05)
[2018-10-14] MEDS: Carbidopa/Levodopa 10/100 mg Tab PO SCH ×2 (09:06→16:42)
[2018-10-14] MEDS: Multivitamin w/ Minerals Tab PO SCH (09:06)
[2018-10-14 09:21] LABS: WHITE BLOOD COUNT 6.3 Th/cmm (4.8-10.8)
[2018-10-14 09:36] LABS: ALB/GLOB RATIO 1.5 (1.0-1.8); ALBUMIN 3.4 gm/dL (4.2-5.5); ALKALINE PHOSPHATASE 886 U/L (34-104); ANION GAP 11.5 (7.0-16.0); BILIRUBIN,TOTAL 0.7 mg/dL (0.3-1.0); BUN - UREA NITROGEN 18 mg/dL (7-25); CARBON DIOXIDE 28.6 mEq/L (21.0-31.0); CHLORIDE 105 mEq/L (98-107); CREATININE - SERUM 0.6 mg/dL (0.7-1.3); GLUCOSE 117 mg/dL (70-105); POTASSIUM SERUM 4.1 mEq/L (3.5-5.1); SGOT 38 U/L (13-39); SGPT/ALT 13 U/L (7-52); SODIUM SERUM 141 mEq/L (136-145); TOTAL PROTEIN,SERUM 5.7 gm/dL (6.0-8.3)
[2018-10-14 09:49] LABS: HEMATOCRIT 24.2 % (41.0-60); MEAN CELL VOLUME 93.5 fl (80-99); MEAN CORPUSCULAR HEMOGLOBIN 31.7 pg (27.0-31.0); MEAN CORPUSCULAR HGB CONC 33.9 pg (28.0-36.0); RED BLOOD COUNT 2.59 Mil/cmm (3.80-5.80); RED CELL DISTRIBUTION WIDTH 20.8 % (11.5-20.0)
[2018-10-14 10:06] LABS: HEMOGLOBIN 8.2 gm/dL (12-16)
[2018-10-14 10:07] LABS: PLATELET COUNT 22 Th/cmm (150-400)
[2018-10-14 10:45] LABS: BAND NEUTROPHILE 1 % (0-10); LYMPHOCYTE 39 % (20-50); NEUTROPHILS 52 % (40-80)
[2018-10-14 10:46] LABS: BASOPHIL 0 % (0-3); EOSINOPHIL 0 % (0-5); MONOCYTE 8 % (2-10); PLATELET ESTIMATE DECREASED PLATELETS (NORMAL)
[2018-10-14 10:47] LABS: ANISOCYTOSIS 1+
--- NOTE | 2018-10-14 14:53 | Consultation ---
DATE OF CONSULTATION: 10/14/2018 HEMATOLOGY-ONCOLOGY CONSULTATION REFERRING PHYSICIAN: Dr. Salinas. REASON FOR CONSULTATION: Anemia and thrombocytopenia. HISTORY OF PRESENT ILLNESS: The patient is a 73-year-old male who has a history of Parkinson disease, dyslipidemia, psychosis and previous hospitalization in the [facility] for psych management. The patient was found to have hemoglobin of 4.9 on admission, MCV of 95, platelets of 23, therefore, I was asked to evaluate. He was transfused 3 units packed red blood cells and his current hemoglobin is 8.2 and platelets dropped to 22,000. On reviewing records from previous admission last month, the patient had a hemoglobin of 7.5 and low platelet count. There is no abdominal ultrasound available and the duration of the cytopenia is unknown. There is no reported history of bleeding by the nursing staff. PAST MEDICAL HISTORY: Parkinson disease, dyslipidemia. CURRENT MEDICATIONS: Carbidopa/levodopa, Lexapro, Trileptal and Seroquel. SURGICAL HISTORY: Unknown. PHYSICAL EXAMINATION: GENERAL: The patient is awake, unable to provide any clear information as he is confused. VITAL SIGNS: Temperature 98, blood pressure 123/70. HEENT: Atraumatic. NECK: Supple. No mucosal bleeding. CHEST: Good air entry, wasted muscles. ABDOMEN: Soft. No ascites. EXTREMITIES: Multiple ecchymoses on the extremities. No bill bleeding. LABORATORY DATA: White count 6.3, hemoglobin 8.2, platelets 22. Creatinine 0.6. Liver functions are markedly elevated alkaline phosphatase, low total bilirubin, and albumin. Normal TSH. ASSESSMENT AND PLAN: Cytopenia, the duration is unknown and the patient will need comprehensive workup with stool occult blood, urinalysis, abdominal imaging with ultrasound, iron studies, B12, and folate level. Drug-induced etiology for the thrombocytopenia will be also considered. The mean platelet volume is normal and this is less likely to be ITP. At this point in time, no further need of transfusion and blood count will be monitored closely. I will start IV steroids empirically until all the workup is available. Thank you, Dr. Salinas, for the opportunity to participate in the care of this interesting case with you. JOB# [id number]
--- NOTE | 2018-10-14 21:53 | Internal Medicine Prog Note ---
Internal Medicine Subjective - Subjective Service Date: 10/14/18 Patient seen and examined:: without staff Patient is:: awake, verbal, in bed, confused Per staff patient has:: no adverse event Internal Medicine Objective - Results Result Diagrams: 10/14/18 09:15 10/14/18 09:15 Recent Labs: Laboratory Last Values WBC 6.3 Th/cmm (4.8-10.8) 10/14/18 09:15 Corrected WBC (auto) 4.4 Th/cmm 10/13/18 12:20 RBC 2.59 Mil/cmm (3.80-5.80) L 10/14/18 09:15 Hgb 8.2 gm/dL (12-16) L D 10/14/18 09:15 Hct 24.2 % (41.0-60) L 10/14/18 09:15 MCV 93.5 fl (80-99) 10/14/18 09:15 MCH 31.7 pg (27.0-31.0) H 10/14/18 09:15 MCHC Differential 33.9 pg (28.0-36.0) 10/14/18 09:15 RDW 20.8 % (11.5-20.0) H 10/14/18 09:15 Plt Count 22 Th/cmm (150-400) L* 10/14/18 09:15 MPV 7.9 fl 10/14/18 09:15 Add Manual Diff YES 10/14/18 09:15 Band Neutrophils % 1 % (0-10) 10/14/18 09:15 Neutrophils (Manual) 52 % (40-80) 10/14/18 09:15 Lymphocytes 39 % (20-50) 10/14/18 09:15 Monocytes 8 % (2-10) 10/14/18 09:15 Eosinophils 0 % (0-5) 10/14/18 09:15 Basophils 0 % (0-3) 10/14/18 09:15 Nucleated RBCs 10.0 % (0-0) H 10/13/18 12:20 Platelet Estimate DECREASED PLATELETS (NORMAL) 10/14/18 09:15 Anisocytosis 1+ 10/14/18 09:15 Microcytosis 1+ 10/13/18 12:20 RBC Morph Micro Appear ABNORMAL (NORMAL) 10/13/18 12:20 Sodium 141 mEq/L (136-145) 10/14/18 09:15 Potassium 4.1 mEq/L (3.5-5.1) 10/14/18 09:15 Chloride 105 mEq/L (98-107) 10/14/18 09:15 Carbon Dioxide 28.6 mEq/L (21.0-31.0) 10/14/18 09:15 Anion Gap 11.5 (7.0-16.0) 10/14/18 09:15 BUN 18 mg/dL (7-25) 10/14/18 09:15 Creatinine 0.6 mg/dL (0.7-1.3) L 10/14/18 09:15 Est GFR ( Amer) TNP 10/14/18 09:15 Est GFR (Non-Af Amer) TNP 10/14/18 09:15 BUN/Creatinine Ratio 30.0 10/14/18 09:15 Glucose 117 mg/dL (70-105) H 10/14/18 09:15 Calcium 9.0 mg/dL (8.6-10.3) 10/14/18 09:15 Total Bilirubin 0.7 mg/dL (0.3-1.0) 10/14/18 09:15 AST 38 U/L (13-39) 10/14/18 09:15 ALT 13 U/L (7-52) 10/14/18 09:15 Alkaline Phosphatase 886 U/L (34-104) H 10/14/18 09:15 Total Protein 5.7 gm/dL (6.0-8.3) L 10/14/18 09:15 Albumin 3.4 gm/dL (4.2-5.5) L 10/14/18 09:15 Globulin 2.3 gm/dL 10/14/18 09:15 Albumin/Globulin Ratio 1.5 (1.0-1.8) 10/14/18 09:15 TSH 1.38 uIU/ml (0.34-5.60) 10/13/18 12:00 Blood Type O POSITIVE 10/13/18 12:20 Antibody Screen NEGATIVE 10/13/18 12:20 Crossmatch See Detail 10/13/18 12:20 - Physical Exam Vitals and I&O: Vital Signs Temp 98.8 F 10/14/18 16:00 Pulse 86 10/14/18 16:00 Resp 20 10/14/18 16:00 BP 139/71 10/14/18 16:00 Pulse Ox 95 10/14/18 16:00 Intake & Output 10/14/18 10/14/18 10/15/18 06:59 18:59 06:59 Intake Total 1100 700 Balance 1100 700 Weight (lbs) 63.248 kg 63.248 kg Intake: Oral 200 700 Blood Product 900 Other: # Voids 300 2 # Bowel Movements 1 Stool Characteristics Soft Weight Source Bedscale Bedscale Active Medications: Current Medications Carbidopa/Levodopa (Sinemet 10 Mg-100 Mg) 1 tab PO BID REPLACED BY [facility] Stop: 12/13/18 08:59 Last Admin: 10/14/18 16:42 Dose: 1 tab Docusate Sodium (Colace) 250 mg PO DAILY [facility]PL[facility]ED BY [facility] Stop: 12/13/18 08:59 Last Admin: 10/14/18 09:06 Dose: 250 mg Escitalopram Oxalate (Lexapro) 5 mg PO DAILY [facility]PL[facility]; Protocol Stop: 12/13/18 08:59 Last Admin: 10/14/18 09:05 Dose: 5 mg Oxcarbazepine (Trileptal) 300 mg PO BID [facility]; Protocol Stop: 12/13/18 08:59 Last Admin: 10/14/18 16:42 Dose: 300 mg Quetiapine Fumarate (Seroquel) 50 mg PO BID REPL[facility]ED BY [facility]; Protocol Stop: 12/13/18 08:59 Last Admin: 10/14/18 16:43 Dose: 50 mg General: demented HEENT: NC/AT, PERRLA, EOMI, anicteric sclerae, throat clear Neck: No thyromegaly, +2 carotid pulse wo bruit, No LAD Lungs: CTAB Cardiovascular: RRR, Normal S1, Normal S2, without murmur Abdomen: non-tender, non-distended Extremities: clear Neurological: no change Internal Medicine Assmt/Plan - Assessment Assessment: 1.CYTOPENIA. 2.PARKINSON DISEASE. 3.DEMENTIA - Plan Plan: CONTINUE ON CURRENT MEDICATION AND DIET
[2018-10-15 07:34] LABS: HEMOGLOBIN 8.1 gm/dL (12-16); MEAN CORPUSCULAR HGB CONC 33.8 pg (28.0-36.0); WHITE BLOOD COUNT 5.4 Th/cmm (4.8-10.8)
[2018-10-15 07:47] LABS: HEMATOCRIT 23.9 % (41.0-60); MEAN CELL VOLUME 93.8 fl (80-99); MEAN CORPUSCULAR HEMOGLOBIN 31.7 pg (27.0-31.0); RED BLOOD COUNT 2.55 Mil/cmm (3.80-5.80); RED CELL DISTRIBUTION WIDTH 22.1 % (11.5-20.0)
[2018-10-15 07:49] LABS: PLATELET COUNT 19 Th/cmm (150-400)
[2018-10-15 08:04] LABS: ANISOCYTOSIS 1+; BAND NEUTROPHILE 1 % (0-10); BASOPHIL 0 % (0-3); EOSINOPHIL 1 % (0-5); LYMPHOCYTE 41 % (20-50); MONOCYTE 7 % (2-10); NEUTROPHILS 50 % (40-80); PLATELET ESTIMATE DECREASED PLATELETS (NORMAL)
[2018-10-15 08:06] LABS: IRON LC 171 ug/dL (38-169); TIBC (LC) 277 ug/dL (250-450); UIBC 106 ug/dL (111-343)
--- NOTE | 2018-10-15 08:29 | Diagnostic Imaging Report ---
Abdominal ultrasound HISTORY: Splenomegaly The liver is somewhat generous in size (17.9 cm length). Detail is limited due to patient respiratory artifact. No definite focal lesions. Evaluation the gallbladder is also limited due to patient and respiratory motion. No obvious intraluminal abnormalities are seen. No biliary dilatation. No abnormality seen in the region of the pancreas. Right kidney is normal in size. 2 sonolucent lesions consistent with cysts are seen. The largest measures approximately 2.5 cm and is situated in the upper mid pole. The left kidney is normal in size. An approximate 2.0 cm sonolucent lesion consistent with a cyst is seen in the mid/lower pole. The spleen appears normal in size (10.3 x 4.4 x 4.4 cm). No other retroperitoneal or intra-abdominal abnormalities. IMPRESSION: 1. Findings consistent with bilateral renal cysts 2. Somewhat generous hepatic size 3. Normal splenic size
[2018-10-15] MEDS: Multivitamin w/ Minerals Tab PO SCH (09:30)
[2018-10-15] MEDS: Carbidopa/Levodopa 10/100 mg Tab PO SCH ×3 (09:30→16:36)
[2018-10-15] MEDS: Escitalopram Oxalate 5 mg Tab PO SCH ×2 (09:30→09:42)
--- NOTE | 2018-10-15 10:26 | General Progress Note ---
Subjective - Review of Systems Service Date: 10/15/18 Subjective: awake, confused Objective - Results Result Diagrams: 10/15/18 07:30 10/14/18 09:15 Recent Labs: Laboratory Last Values WBC 5.4 Th/cmm (4.8-10.8) 10/15/18 07:30 Corrected WBC (auto) 4.4 Th/cmm 10/13/18 12:20 RBC 2.55 Mil/cmm (3.80-5.80) L 10/15/18 07:30 Hgb 8.1 gm/dL (12-16) L 10/15/18 07:30 Hct 23.9 % (41.0-60) L 10/15/18 07:30 MCV 93.8 fl (80-99) 10/15/18 07:30 MCH 31.7 pg (27.0-31.0) H 10/15/18 07:30 MCHC Differential 33.8 pg (28.0-36.0) 10/15/18 07:30 RDW 22.1 % (11.5-20.0) H 10/15/18 07:30 Plt Count 19 Th/cmm (150-400) L* 10/15/18 07:30 MPV 8.0 fl 10/15/18 07:30 Add Manual Diff YES 10/15/18 07:30 Band Neutrophils % 1 % (0-10) 10/15/18 07:30 Neutrophils (Manual) 50 % (40-80) 10/15/18 07:30 Lymphocytes 41 % (20-50) 10/15/18 07:30 Monocytes 7 % (2-10) 10/15/18 07:30 Eosinophils 1 % (0-5) 10/15/18 07:30 Basophils 0 % (0-3) 10/15/18 07:30 Nucleated RBCs 10.0 % (0-0) H 10/13/18 12:20 Platelet Estimate DECREASED PLATELETS (NORMAL) 10/15/18 07:30 Anisocytosis 1+ 10/15/18 07:30 Microcytosis 1+ 10/13/18 12:20 RBC Morph Micro Appear ABNORMAL (NORMAL) 10/13/18 12:20 Sodium 141 mEq/L (136-145) 10/14/18 09:15 Potassium 4.1 mEq/L (3.5-5.1) 10/14/18 09:15 Chloride 105 mEq/L (98-107) 10/14/18 09:15 Carbon Dioxide 28.6 mEq/L (21.0-31.0) 10/14/18 09:15 Anion Gap 11.5 (7.0-16.0) 10/14/18 09:15 BUN 18 mg/dL (7-25) 10/14/18 09:15 Creatinine 0.6 mg/dL (0.7-1.3) L 10/14/18 09:15 Est GFR ( Amer) TNP 10/14/18 09:15 Est GFR (Non-Af Amer) TNP 10/14/18 09:15 BUN/Creatinine Ratio 30.0 10/14/18 09:15 Glucose 117 mg/dL (70-105) H 10/14/18 09:15 Calcium 9.0 mg/dL (8.6-10.3) 10/14/18 09:15 Iron 171 ug/dL (38-169) H 10/14/18 09:15 TIBC 277 ug/dL (250-450) 10/14/18 09:15 Iron Saturation 62 % (15-55) H 10/14/18 09:15 Unsaturated IBC 106 ug/dL (111-343) L 10/14/18 09:15 Ferritin 876 ng/mL (30-400) H 10/13/18 12:00 Total Bilirubin 0.7 mg/dL (0.3-1.0) 10/14/18 09:15 AST 38 U/L (13-39) 10/14/18 09:15 ALT 13 U/L (7-52) 10/14/18 09:15 Alkaline Phosphatase 886 U/L (34-104) H 10/14/18 09:15 Total Protein 5.7 gm/dL (6.0-8.3) L 10/14/18 09:15 Albumin 3.4 gm/dL (4.2-5.5) L 10/14/18 09:15 Globulin 2.3 gm/dL 10/14/18 09:15 Albumin/Globulin Ratio 1.5 (1.0-1.8) 10/14/18 09:15 Vitamin B12 515 pg/mL (232-1245) 10/13/18 12:00 Folic Acid 9.9 ng/mL (>3.0) 10/13/18 12:00 TSH 1.38 uIU/ml (0.34-5.60) 10/13/18 12:00 Stool Occult Blood NEGATIVE (NEGATIVE) 10/15/18 09:40 Blood Type O POSITIVE 10/13/18 12:20 Antibody Screen NEGATIVE 10/13/18 12:20 Crossmatch See Detail 10/13/18 12:20 - Physical Exam Vitals and I&O: Vital Signs Temp 99.4 F 10/15/18 07:40 Pulse 99 10/15/18 07:40 Resp 18 10/15/18 07:40 BP 136/78 10/15/18 07:40 Pulse Ox 92 10/15/18 07:40 Intake & Output 10/14/18 10/15/18 10/15/18 18:59 06:59 18:59 Intake Total 700 400 Balance 700 400 Weight (lbs) 63.248 kg 63.503 kg Intake: Oral 700 400 Other: # Voids 2 2 # Bowel Movements 1 Weight Source Bedscale Bedscale Active Medications: Current Medications Carbidopa/Levodopa (Sinemet 10 Mg-100 Mg) 1 tab PO BID [facility] Stop: 12/13/18 08:59 Last Admin: 10/15/18 09:42 Dose: Not Given Docusate Sodium (Colace) 250 mg PO DAILY [facility] Stop: 12/13/18 08:59 Last Admin: 10/15/18 09:30 Dose: 250 mg Escitalopram Oxalate (Lexapro) 5 mg PO DAILY [facility]; Protocol Stop: 12/13/18 08:59 Last Admin: 10/15/18 09:42 Dose: Not Given Oxcarbazepine (Trileptal) 300 mg PO BID [facility]; Protocol Stop: 12/13/18 08:59 Last Admin: 10/15/18 09:30 Dose: 300 mg Quetiapine Fumarate (Seroquel) 50 mg PO BID [facility]; Protocol Stop: 12/13/18 08:59 Last Admin: 10/15/18 09:42 Dose: Not Given General: Other Other physical findings: confused no bleeding abd soft Assessment/Plan - Problem List Patient Problems: All Active Problems LOW HEMOGLOBIN OF 4.6 (Acute) - Assessment Assessment: Cytopenia, the duration is unknown and the patient will need comprehensive workup with stool occult blood, urinalysis, abdominal imaging with ultrasound, iron studies, B12, and folate level. Drug-induced etiology for the thrombocytopenia will be also considered. The mean platelet volume is normal and this is less likely to be ITP. At this point in time, no further need of transfusion and blood count will be monitored closely. I will start IV steroids empirically until all the workup is available. 10/15: normal size spleen, no nutrional deficiency. negative OB. 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 tx platelets
--- NOTE | 2018-10-15 20:40 | Internal Medicine Prog Note ---
Internal Medicine Subjective - Subjective Service Date: 10/15/18 Patient seen and examined:: with staff (HE FEELS WELL) Patient is:: awake, verbal, in bed, confused Per staff patient has:: no adverse event Internal Medicine Objective - Results Result Diagrams: 10/15/18 07:30 10/14/18 09:15 Recent Labs: Laboratory Last Values WBC 5.4 Th/cmm (4.8-10.8) 10/15/18 07:30 Corrected WBC (auto) 4.4 Th/cmm 10/13/18 12:20 RBC 2.55 Mil/cmm (3.80-5.80) L 10/15/18 07:30 Hgb 8.1 gm/dL (12-16) L 10/15/18 07:30 Hct 23.9 % (41.0-60) L 10/15/18 07:30 MCV 93.8 fl (80-99) 10/15/18 07:30 MCH 31.7 pg (27.0-31.0) H 10/15/18 07:30 MCHC Differential 33.8 pg (28.0-36.0) 10/15/18 07:30 RDW 22.1 % (11.5-20.0) H 10/15/18 07:30 Plt Count 19 Th/cmm (150-400) L* 10/15/18 07:30 MPV 8.0 fl 10/15/18 07:30 Add Manual Diff YES 10/15/18 07:30 Band Neutrophils % 1 % (0-10) 10/15/18 07:30 Neutrophils (Manual) 50 % (40-80) 10/15/18 07:30 Lymphocytes 41 % (20-50) 10/15/18 07:30 Monocytes 7 % (2-10) 10/15/18 07:30 Eosinophils 1 % (0-5) 10/15/18 07:30 Basophils 0 % (0-3) 10/15/18 07:30 Nucleated RBCs 10.0 % (0-0) H 10/13/18 12:20 Platelet Estimate DECREASED PLATELETS (NORMAL) 10/15/18 07:30 Anisocytosis 1+ 10/15/18 07:30 Microcytosis 1+ 10/13/18 12:20 RBC Morph Micro Appear ABNORMAL (NORMAL) 10/13/18 12:20 Sodium 141 mEq/L (136-145) 10/14/18 09:15 Potassium 4.1 mEq/L (3.5-5.1) 10/14/18 09:15 Chloride 105 mEq/L (98-107) 10/14/18 09:15 Carbon Dioxide 28.6 mEq/L (21.0-31.0) 10/14/18 09:15 Anion Gap 11.5 (7.0-16.0) 10/14/18 09:15 BUN 18 mg/dL (7-25) 10/14/18 09:15 Creatinine 0.6 mg/dL (0.7-1.3) L 10/14/18 09:15 Est GFR ( Amer) TNP 10/14/18 09:15 Est GFR (Non-Af Amer) TNP 10/14/18 09:15 BUN/Creatinine Ratio 30.0 10/14/18 09:15 Glucose 117 mg/dL (70-105) H 10/14/18 09:15 Calcium 9.0 mg/dL (8.6-10.3) 10/14/18 09:15 Iron 171 ug/dL (38-169) H 10/14/18 09:15 TIBC 277 ug/dL (250-450) 10/14/18 09:15 Iron Saturation 62 % (15-55) H 10/14/18 09:15 Unsaturated IBC 106 ug/dL (111-343) L 10/14/18 09:15 Ferritin 876 ng/mL (30-400) H 10/13/18 12:00 Total Bilirubin 0.7 mg/dL (0.3-1.0) 10/14/18 09:15 AST 38 U/L (13-39) 10/14/18 09:15 ALT 13 U/L (7-52) 10/14/18 09:15 Alkaline Phosphatase 886 U/L (34-104) H 10/14/18 09:15 Total Protein 5.7 gm/dL (6.0-8.3) L 10/14/18 09:15 Albumin 3.4 gm/dL (4.2-5.5) L 10/14/18 09:15 Globulin 2.3 gm/dL 10/14/18 09:15 Albumin/Globulin Ratio 1.5 (1.0-1.8) 10/14/18 09:15 Vitamin B12 515 pg/mL (232-1245) 10/13/18 12:00 Folic Acid 9.9 ng/mL (>3.0) 10/13/18 12:00 TSH 1.38 uIU/ml (0.34-5.60) 10/13/18 12:00 Stool Occult Blood NEGATIVE (NEGATIVE) 10/15/18 09:40 Blood Type O POSITIVE 10/13/18 12:20 Antibody Screen NEGATIVE 10/13/18 12:20 Crossmatch See Detail 10/13/18 12:20 - Physical Exam Vitals and I&O: Vital Signs Temp 98 F 10/15/18 15:30 Pulse 90 10/15/18 15:30 Resp 18 10/15/18 20:00 BP 115/70 10/15/18 15:30 Pulse Ox 94 10/15/18 15:30 Intake & Output 10/15/18 10/15/18 10/16/18 06:59 18:59 06:59 Intake Total 400 1000 Balance 400 1000 Weight (lbs) 63.503 kg 63.503 kg Intake: Oral 400 500 Blood Product 500 Other: # Voids 2 2 # Bowel Movements 1 1 Stool Characteristics Soft Formed Brown Weight Source Bedscale Bedscale Active Medications: Current Medications Carbidopa/Levodopa (Sinemet 10 Mg-100 Mg) 1 tab PO BID [facility] Stop: 12/13/18 08:59 Last Admin: 10/15/18 16:36 Dose: 1 tab Docusate Sodium (Colace) 250 mg PO DAILY [facility] Stop: 12/13/18 08:59 Last Admin: 10/15/18 09:30 Dose: 250 mg Escitalopram Oxalate (Lexapro) 5 mg PO DAILY [facility]; Protocol Stop: 12/13/18 08:59 Last Admin: 10/15/18 09:42 Dose: Not Given Oxcarbazepine (Trileptal) 300 mg PO BID [facility]; Protocol Stop: 12/13/18 08:59 Last Admin: 10/15/18 16:35 Dose: 300 mg Quetiapine Fumarate (Seroquel) 50 mg PO BID [facility]; Protocol Stop: 12/13/18 08:59 Last Admin: 10/15/18 16:36 Dose: 50 mg General: demented HEENT: NC/AT, PERRLA, EOMI, anicteric sclerae, throat clear Neck: No thyromegaly, +2 carotid pulse wo bruit, No LAD Lungs: CTAB Cardiovascular: RRR, Normal S1, Normal S2, without murmur Abdomen: non-tender, non-distended Extremities: clear Neurological: no change Internal Medicine Assmt/Plan - Assessment Assessment: 1.CYTOPENIA. 2.PARKINSON DISEASE. 3.DEMENTIA - Plan Plan: CONTINUE ON CURRENT MEDICATION AND DIET
[2018-10-16 07:21] LABS: HEMATOCRIT 25.8 % (41.0-60); HEMOGLOBIN 8.7 gm/dL (12-16); MEAN CELL VOLUME 94.8 fl (80-99); MEAN CORPUSCULAR HEMOGLOBIN 31.9 pg (27.0-31.0); MEAN CORPUSCULAR HGB CONC 33.7 pg (28.0-36.0); PLATELET COUNT 47 Th/cmm (150-400); RED BLOOD COUNT 2.72 Mil/cmm (3.80-5.80); RED CELL DISTRIBUTION WIDTH 21.4 % (11.5-20.0); WHITE BLOOD COUNT 6.7 Th/cmm (4.8-10.8)
[2018-10-16 08:17] LABS: BAND NEUTROPHILE 2 % (0-10); LYMPHOCYTE 41 % (20-50); MONOCYTE 10 % (2-10); NEUTROPHILS 47 % (40-80)
[2018-10-16 08:18] LABS: ANISOCYTOSIS 1+; CORRECTED WBC 6.2 Th/cmm; PLATELET ESTIMATE DECREASED PLATELETS (NORMAL); POIKILOCYTOSIS 1+
[2018-10-16] MEDS: Carbidopa/Levodopa 10/100 mg Tab PO SCH ×2 (09:32→16:29)
[2018-10-16] MEDS: Escitalopram Oxalate 5 mg Tab PO SCH (09:33)
[2018-10-16] MEDS: Multivitamin w/ Minerals Tab PO SCH (09:33)
--- NOTE | 2018-10-16 10:27 | General Progress Note ---
Subjective - Review of Systems Service Date: 10/16/18 Subjective: awake, confused Objective - Results Result Diagrams: 10/16/18 07:00 10/14/18 09:15 Recent Labs: Laboratory Last Values WBC 6.7 Th/cmm (4.8-10.8) 10/16/18 07:00 Corrected WBC (auto) 6.2 Th/cmm 10/16/18 07:00 RBC 2.72 Mil/cmm (3.80-5.80) L 10/16/18 07:00 Hgb 8.7 gm/dL (12-16) L 10/16/18 07:00 Hct 25.8 % (41.0-60) L 10/16/18 07:00 MCV 94.8 fl (80-99) 10/16/18 07:00 MCH 31.9 pg (27.0-31.0) H 10/16/18 07:00 MCHC Differential 33.7 pg (28.0-36.0) 10/16/18 07:00 RDW 21.4 % (11.5-20.0) H 10/16/18 07:00 Plt Count 47 Th/cmm (150-400) L 10/16/18 07:00 MPV 8.7 fl 10/16/18 07:00 Add Manual Diff YES 10/16/18 07:00 Neutrophils % CLINICAL SAFETY MANAGER 10/16/18 07:00 Band Neutrophils % 2 % (0-10) 10/16/18 07:00 Lymphocytes % CLINICAL SAFETY MANAGER 10/16/18 07:00 Monocytes % CLINICAL SAFETY MANAGER 10/16/18 07:00 Eosinophils % CLINICAL SAFETY MANAGER 10/16/18 07:00 Basophils % CLINICAL SAFETY MANAGER 10/16/18 07:00 Neutrophils (Manual) 47 % (40-80) 10/16/18 07:00 Lymphocytes 41 % (20-50) 10/16/18 07:00 Monocytes 10 % (2-10) 10/16/18 07:00 Eosinophils 1 % (0-5) 10/15/18 07:30 Basophils 0 % (0-3) 10/15/18 07:30 Nucleated RBCs 8.0 % (0-0) H 10/16/18 07:00 Platelet Estimate DECREASED PLATELETS (NORMAL) 10/16/18 07:00 Poikilocytosis 1+ 10/16/18 07:00 Anisocytosis 1+ 10/16/18 07:00 Microcytosis 1+ 10/13/18 12:20 RBC Morph Micro Appear ABNORMAL (NORMAL) 10/13/18 12:20 Sodium 141 mEq/L (136-145) 10/14/18 09:15 Potassium 4.1 mEq/L (3.5-5.1) 10/14/18 09:15 Chloride 105 mEq/L (98-107) 10/14/18 09:15 Carbon Dioxide 28.6 mEq/L (21.0-31.0) 10/14/18 09:15 Anion Gap 11.5 (7.0-16.0) 10/14/18 09:15 BUN 18 mg/dL (7-25) 10/14/18 09:15 Creatinine 0.6 mg/dL (0.7-1.3) L 10/14/18 09:15 Est GFR ( Amer) TNP 10/14/18 09:15 Est GFR (Non-Af Amer) TNP 10/14/18 09:15 BUN/Creatinine Ratio 30.0 10/14/18 09:15 Glucose 117 mg/dL (70-105) H 10/14/18 09:15 Calcium 9.0 mg/dL (8.6-10.3) 10/14/18 09:15 Iron 171 ug/dL (38-169) H 10/14/18 09:15 TIBC 277 ug/dL (250-450) 10/14/18 09:15 Iron Saturation 62 % (15-55) H 10/14/18 09:15 Unsaturated IBC 106 ug/dL (111-343) L 10/14/18 09:15 Ferritin 876 ng/mL (30-400) H 10/13/18 12:00 Total Bilirubin 0.7 mg/dL (0.3-1.0) 10/14/18 09:15 AST 38 U/L (13-39) 10/14/18 09:15 ALT 13 U/L (7-52) 10/14/18 09:15 Alkaline Phosphatase 886 U/L (34-104) H 10/14/18 09:15 Total Protein 5.7 gm/dL (6.0-8.3) L 10/14/18 09:15 Albumin 3.4 gm/dL (4.2-5.5) L 10/14/18 09:15 Globulin 2.3 gm/dL 10/14/18 09:15 Albumin/Globulin Ratio 1.5 (1.0-1.8) 10/14/18 09:15 Vitamin B12 515 pg/mL (232-1245) 10/13/18 12:00 Folic Acid 9.9 ng/mL (>3.0) 10/13/18 12:00 TSH 1.38 uIU/ml (0.34-5.60) 10/13/18 12:00 Stool Occult Blood NEGATIVE (NEGATIVE) 10/15/18 09:40 Blood Type O POSITIVE 10/13/18 12:20 Antibody Screen NEGATIVE 10/13/18 12:20 Crossmatch See Detail 10/13/18 12:20 - Physical Exam Vitals and I&O: Vital Signs Temp 98 F 10/15/18 15:30 Pulse 90 10/15/18 15:30 Resp 18 10/16/18 04:00 BP 115/70 10/15/18 15:30 Pulse Ox 94 10/15/18 15:30 Intake & Output 10/15/18 10/16/18 10/16/18 18:59 06:59 18:59 Intake Total 1000 240 Balance 1000 240 Weight (lbs) 63.503 kg 63.503 kg Intake: Oral 500 240 Blood Product 500 Other: # Voids 2 3 # Bowel Movements 1 0 Stool Characteristics Soft Formed Brown Weight Source Bedscale Bedscale Active Medications: Current Medications Carbidopa/Levodopa (Sinemet 10 Mg-100 Mg) 1 tab PO BID [facility] Stop: 12/13/18 08:59 Last Admin: 10/16/18 09:32 Dose: 1 tab Docusate Sodium (Colace) 250 mg PO DAILY [facility] Stop: 12/13/18 08:59 Last Admin: 10/16/18 09:33 Dose: 250 mg Escitalopram Oxalate (Lexapro) 5 mg PO DAILY [facility]; Protocol Stop: 12/13/18 08:59 Last Admin: 10/16/18 09:33 Dose: 5 mg Oxcarbazepine (Trileptal) 300 mg PO BID [facility]; Protocol Stop: 12/13/18 08:59 Last Admin: 10/16/18 09:33 Dose: 300 mg Quetiapine Fumarate (Seroquel) 50 mg PO BID [facility]; Protocol Stop: 12/13/18 08:59 Last Admin: 10/16/18 09:33 Dose: 50 mg General: Other Assessment/Plan - Problem List Patient Problems: All Active Problems LOW HEMOGLOBIN OF 4.6 (Acute) - Assessment Assessment: Cytopenia, the duration is unknown and the patient will need comprehensive workup with stool occult blood, urinalysis, abdominal imaging with ultrasound, iron studies, B12, and folate level. Drug-induced etiology for the thrombocytopenia will be also considered. The mean platelet volume is normal and this is less likely to be ITP. At this point in time, no further need of transfusion and blood count will be monitored closely. I will start IV steroids empirically until all the workup is available. 10/16: normal size spleen, no nutrional deficiency. negative OB. 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 platelets better s/p tx.
--- NOTE | 2018-10-16 17:28 | Internal Medicine Prog Note ---
Internal Medicine Subjective - Subjective Service Date: 10/16/18 Patient seen and examined:: without staff (HE FEELS WELL) Patient is:: awake, verbal, in bed, confused Per staff patient has:: no adverse event Internal Medicine Objective - Results Result Diagrams: 10/16/18 07:00 10/14/18 09:15 Recent Labs: Laboratory Last Values WBC 6.7 Th/cmm (4.8-10.8) 10/16/18 07:00 Corrected WBC (auto) 6.2 Th/cmm 10/16/18 07:00 RBC 2.72 Mil/cmm (3.80-5.80) L 10/16/18 07:00 Hgb 8.7 gm/dL (12-16) L 10/16/18 07:00 Hct 25.8 % (41.0-60) L 10/16/18 07:00 MCV 94.8 fl (80-99) 10/16/18 07:00 MCH 31.9 pg (27.0-31.0) H 10/16/18 07:00 MCHC Differential 33.7 pg (28.0-36.0) 10/16/18 07:00 RDW 21.4 % (11.5-20.0) H 10/16/18 07:00 Plt Count 47 Th/cmm (150-400) L 10/16/18 07:00 MPV 8.7 fl 10/16/18 07:00 Add Manual Diff YES 10/16/18 07:00 Neutrophils % SHOE REPAIR COBBLER 10/16/18 07:00 Band Neutrophils % 2 % (0-10) 10/16/18 07:00 Lymphocytes % SHOE REPAIR COBBLER 10/16/18 07:00 Monocytes % SHOE REPAIR COBBLER 10/16/18 07:00 Eosinophils % SHOE REPAIR COBBLER 10/16/18 07:00 Basophils % SHOE REPAIR COBBLER 10/16/18 07:00 Neutrophils (Manual) 47 % (40-80) 10/16/18 07:00 Lymphocytes 41 % (20-50) 10/16/18 07:00 Monocytes 10 % (2-10) 10/16/18 07:00 Eosinophils 1 % (0-5) 10/15/18 07:30 Basophils 0 % (0-3) 10/15/18 07:30 Nucleated RBCs 8.0 % (0-0) H 10/16/18 07:00 Platelet Estimate DECREASED PLATELETS (NORMAL) 10/16/18 07:00 Poikilocytosis 1+ 10/16/18 07:00 Anisocytosis 1+ 10/16/18 07:00 Microcytosis 1+ 10/13/18 12:20 RBC Morph Micro Appear ABNORMAL (NORMAL) 10/13/18 12:20 Sodium 141 mEq/L (136-145) 10/14/18 09:15 Potassium 4.1 mEq/L (3.5-5.1) 10/14/18 09:15 Chloride 105 mEq/L (98-107) 10/14/18 09:15 Carbon Dioxide 28.6 mEq/L (21.0-31.0) 10/14/18 09:15 Anion Gap 11.5 (7.0-16.0) 10/14/18 09:15 BUN 18 mg/dL (7-25) 10/14/18 09:15 Creatinine 0.6 mg/dL (0.7-1.3) L 10/14/18 09:15 Est GFR ( Amer) TNP 10/14/18 09:15 Est GFR (Non-Af Amer) TNP 10/14/18 09:15 BUN/Creatinine Ratio 30.0 10/14/18 09:15 Glucose 117 mg/dL (70-105) H 10/14/18 09:15 Calcium 9.0 mg/dL (8.6-10.3) 10/14/18 09:15 Iron 171 ug/dL (38-169) H 10/14/18 09:15 TIBC 277 ug/dL (250-450) 10/14/18 09:15 Iron Saturation 62 % (15-55) H 10/14/18 09:15 Unsaturated IBC 106 ug/dL (111-343) L 10/14/18 09:15 Ferritin 876 ng/mL (30-400) H 10/13/18 12:00 Total Bilirubin 0.7 mg/dL (0.3-1.0) 10/14/18 09:15 AST 38 U/L (13-39) 10/14/18 09:15 ALT 13 U/L (7-52) 10/14/18 09:15 Alkaline Phosphatase 886 U/L (34-104) H 10/14/18 09:15 Total Protein 5.7 gm/dL (6.0-8.3) L 10/14/18 09:15 Albumin 3.4 gm/dL (4.2-5.5) L 10/14/18 09:15 Globulin 2.3 gm/dL 10/14/18 09:15 Albumin/Globulin Ratio 1.5 (1.0-1.8) 10/14/18 09:15 Vitamin B12 515 pg/mL (232-1245) 10/13/18 12:00 Folic Acid 9.9 ng/mL (>3.0) 10/13/18 12:00 TSH 1.38 uIU/ml (0.34-5.60) 10/13/18 12:00 Stool Occult Blood NEGATIVE (NEGATIVE) 10/15/18 09:40 Blood Type O POSITIVE 10/13/18 12:20 Antibody Screen NEGATIVE 10/13/18 12:20 Crossmatch See Detail 10/13/18 12:20 - Physical Exam Vitals and I&O: Vital Signs Temp 98.6 F 10/16/18 09:00 Pulse 91 10/16/18 09:00 Resp 18 10/16/18 16:00 BP 130/73 10/16/18 09:00 Pulse Ox 94 10/15/18 15:30 Intake & Output 10/15/18 10/16/18 10/16/18 18:59 06:59 18:59 Intake Total 1000 240 300 Balance 1000 240 300 Weight (lbs) 63.503 kg 63.503 kg 63.503 kg Intake: Oral 500 240 300 Blood Product 500 Other: # Voids 2 3 1 # Bowel Movements 1 0 Stool Characteristics Soft Formed Brown Weight Source Bedscale Bedscale Bedscale Active Medications: Current Medications Carbidopa/Levodopa (Sinemet 10 Mg-100 Mg) 1 tab PO BID [facility] Stop: 12/13/18 08:59 Last Admin: 10/16/18 16:29 Dose: 1 tab Docusate Sodium (Colace) 250 mg PO DAILY [facility] Stop: 12/13/18 08:59 Last Admin: 10/16/18 09:33 Dose: 250 mg Escitalopram Oxalate (Lexapro) 5 mg PO DAILY [facility]; Protocol Stop: 12/13/18 08:59 Last Admin: 10/16/18 09:33 Dose: 5 mg Oxcarbazepine (Trileptal) 300 mg PO BID [facility]; Protocol Stop: 12/13/18 08:59 Last Admin: 10/16/18 16:29 Dose: 300 mg Quetiapine Fumarate (Seroquel) 50 mg PO BID [facility]; Protocol Stop: 12/13/18 08:59 Last Admin: 10/16/18 16:29 Dose: 50 mg General: demented HEENT: NC/AT, PERRLA, EOMI, anicteric sclerae, throat clear Neck: No thyromegaly, +2 carotid pulse wo bruit, No LAD Lungs: CTAB Cardiovascular: RRR, Normal S1, Normal S2, without murmur Abdomen: non-tender, non-distended Extremities: clear Neurological: no change Internal Medicine Assmt/Plan - Assessment Assessment: 1.CYTOPENIA. 2.PARKINSON DISEASE. 3.DEMENTIA - Plan Plan: CONTINUE ON CURRENT MEDICATION AND DIET
[2018-10-17] MEDS: Escitalopram Oxalate 5 mg Tab PO SCH (09:21)
[2018-10-17] MEDS: Carbidopa/Levodopa 10/100 mg Tab PO SCH ×2 (09:21→17:25)
[2018-10-17] MEDS: Multivitamin w/ Minerals Tab PO SCH (09:21)
--- NOTE | 2018-10-17 14:28 | General Progress Note ---
Subjective - Review of Systems Service Date: 10/17/18 Subjective: awake, confused Objective - Results Result Diagrams: 10/16/18 07:00 10/14/18 09:15 Recent Labs: Laboratory Last Values WBC 6.7 Th/cmm (4.8-10.8) 10/16/18 07:00 Corrected WBC (auto) 6.2 Th/cmm 10/16/18 07:00 RBC 2.72 Mil/cmm (3.80-5.80) L 10/16/18 07:00 Hgb 8.7 gm/dL (12-16) L 10/16/18 07:00 Hct 25.8 % (41.0-60) L 10/16/18 07:00 MCV 94.8 fl (80-99) 10/16/18 07:00 MCH 31.9 pg (27.0-31.0) H 10/16/18 07:00 MCHC Differential 33.7 pg (28.0-36.0) 10/16/18 07:00 RDW 21.4 % (11.5-20.0) H 10/16/18 07:00 Plt Count 47 Th/cmm (150-400) L 10/16/18 07:00 MPV 8.7 fl 10/16/18 07:00 Add Manual Diff YES 10/16/18 07:00 Neutrophils % TREATMENT TECHNICIAN 10/16/18 07:00 Band Neutrophils % 2 % (0-10) 10/16/18 07:00 Lymphocytes % TREATMENT TECHNICIAN 10/16/18 07:00 Monocytes % TREATMENT TECHNICIAN 10/16/18 07:00 Eosinophils % TREATMENT TECHNICIAN 10/16/18 07:00 Basophils % TREATMENT TECHNICIAN 10/16/18 07:00 Neutrophils (Manual) 47 % (40-80) 10/16/18 07:00 Lymphocytes 41 % (20-50) 10/16/18 07:00 Monocytes 10 % (2-10) 10/16/18 07:00 Eosinophils 1 % (0-5) 10/15/18 07:30 Basophils 0 % (0-3) 10/15/18 07:30 Nucleated RBCs 8.0 % (0-0) H 10/16/18 07:00 Platelet Estimate DECREASED PLATELETS (NORMAL) 10/16/18 07:00 Poikilocytosis 1+ 10/16/18 07:00 Anisocytosis 1+ 10/16/18 07:00 Microcytosis 1+ 10/13/18 12:20 RBC Morph Micro Appear ABNORMAL (NORMAL) 10/13/18 12:20 Sodium 141 mEq/L (136-145) 10/14/18 09:15 Potassium 4.1 mEq/L (3.5-5.1) 10/14/18 09:15 Chloride 105 mEq/L (98-107) 10/14/18 09:15 Carbon Dioxide 28.6 mEq/L (21.0-31.0) 10/14/18 09:15 Anion Gap 11.5 (7.0-16.0) 10/14/18 09:15 BUN 18 mg/dL (7-25) 10/14/18 09:15 Creatinine 0.6 mg/dL (0.7-1.3) L 10/14/18 09:15 Est GFR ( Amer) TNP 10/14/18 09:15 Est GFR (Non-Af Amer) TNP 10/14/18 09:15 BUN/Creatinine Ratio 30.0 10/14/18 09:15 Glucose 117 mg/dL (70-105) H 10/14/18 09:15 Calcium 9.0 mg/dL (8.6-10.3) 10/14/18 09:15 Iron 171 ug/dL (38-169) H 10/14/18 09:15 TIBC 277 ug/dL (250-450) 10/14/18 09:15 Iron Saturation 62 % (15-55) H 10/14/18 09:15 Unsaturated IBC 106 ug/dL (111-343) L 10/14/18 09:15 Ferritin 876 ng/mL (30-400) H 10/13/18 12:00 Total Bilirubin 0.7 mg/dL (0.3-1.0) 10/14/18 09:15 AST 38 U/L (13-39) 10/14/18 09:15 ALT 13 U/L (7-52) 10/14/18 09:15 Alkaline Phosphatase 886 U/L (34-104) H 10/14/18 09:15 Total Protein 5.7 gm/dL (6.0-8.3) L 10/14/18 09:15 Albumin 3.4 gm/dL (4.2-5.5) L 10/14/18 09:15 Globulin 2.3 gm/dL 10/14/18 09:15 Albumin/Globulin Ratio 1.5 (1.0-1.8) 10/14/18 09:15 Vitamin B12 515 pg/mL (232-1245) 10/13/18 12:00 Folic Acid 9.9 ng/mL (>3.0) 10/13/18 12:00 TSH 1.38 uIU/ml (0.34-5.60) 10/13/18 12:00 Stool Occult Blood NEGATIVE (NEGATIVE) 10/15/18 09:40 Blood Type O POSITIVE 10/13/18 12:20 Antibody Screen NEGATIVE 10/13/18 12:20 Crossmatch See Detail 10/13/18 12:20 - Physical Exam Vitals and I&O: Vital Signs Temp 98.8 F 10/17/18 12:00 Pulse 91 10/17/18 12:00 Resp 19 10/17/18 12:00 BP 117/73 10/17/18 12:00 Pulse Ox 94 10/15/18 15:30 Intake & Output 10/16/18 10/17/18 10/17/18 18:59 06:59 18:59 Intake Total 800 240 300 Output Total 1 Balance 799 240 300 Weight (lbs) 63.503 kg 63.503 kg 63.503 kg Intake: Oral 800 240 300 Output: Stool 1 Other: # Voids 3 3 2 # Bowel Movements 0 Weight Source Bedscale Bedscale Bedscale Active Medications: Current Medications Carbidopa/Levodopa (Sinemet 10 Mg-100 Mg) 1 tab PO BID [facility] Stop: 12/13/18 08:59 Last Admin: 10/17/18 09:21 Dose: 1 tab Docusate Sodium (Colace) 250 mg PO DAILY [facility] Stop: 12/13/18 08:59 Last Admin: 10/17/18 09:21 Dose: 250 mg Escitalopram Oxalate (Lexapro) 5 mg PO DAILY [facility]; Protocol Stop: 12/13/18 08:59 Last Admin: 10/17/18 09:21 Dose: 5 mg Oxcarbazepine (Trileptal) 300 mg PO BID [facility]; Protocol Stop: 12/13/18 08:59 Last Admin: 10/17/18 09:21 Dose: 300 mg Quetiapine Fumarate (Seroquel) 50 mg PO BID [facility]; Protocol Stop: 12/13/18 08:59 Last Admin: 10/17/18 09:21 Dose: 50 mg General: Other Assessment/Plan - Problem List Patient Problems: All Active Problems LOW HEMOGLOBIN OF 4.6 (Acute) - Assessment Assessment: Cytopenia, the duration is unknown and the patient will need comprehensive workup with stool occult blood, urinalysis, abdominal imaging with ultrasound, iron studies, B12, and folate level. Drug-induced etiology for the thrombocytopenia will be also considered. The mean platelet volume is normal and this is less likely to be ITP. At this point in time, no further need of transfusion and blood count will be monitored closely. I will start IV steroids empirically until all the workup is available. 10/17: normal size spleen, no nutrional deficiency. negative OB. 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 platelets better s/p tx. 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
--- NOTE | 2018-10-17 20:01 | Discharge Summary ---
DATE OF DISCHARGE: 10/17/2018 FINAL DIAGNOSES: 1. Severe anemia. 2. Thrombocytopenia. 3. Parkinson's disease. 4. Psychosis. REVIEW OF HISTORY: The patient is a 73-year-old male with long history of Parkinson disease, psychosis, admitted to [facility] with severe anemia. On arrival, hemoglobin 4.3, 3 units of blood ordered to be transfused. Dr. Smith consulted on the case. PHYSICAL EXAMINATION: VITAL SIGNS: Temperature 97.2, heart rate 100, blood pressure 111/71. CHEST: Clear to auscultation. ABDOMEN: Soft. Bowel sounds positive. COURSE OF HOSPITALIZATION: During this hospitalization, patient was seen by Dr. Smith and 3 units of blood were transfused. The patient also started on steroid. On the 10/15/2018, the patient was feeling well. No chest pain, no shortness of breath, white blood cells 5.4, hemoglobin 8.1. Sodium 141, potassium 4.1, BUN 18, creatinine 0.6, platelet 19. The patient had 1 unit of plateletpheresis transfused. On the 10/16/2018, patient was feeling well. No chest pain, no shortness of breath, no nausea, no vomiting, no fever, no chills. DISPOSITION: The patient got transferred back to [facility] on 10/17/2018 to be followed up with law clerk as outpatient. CONDITION ON DISCHARGE: Stable. MEDICATIONS: Follow discharge reconciliation. [facility]# [id number]
== END 2018-10-17 21:20 | DRG 812 ==
LOC: ER 11:58 → TELE 14:48
PROVIDERS: ADMIT Family Medicine; ATTEND Family Medicine
PROC: 30233N1 Transfusion of Nonautologous Red Blood Cells into Peripheral Vein, Percutaneous Approach (ICD-10-PCS; 2018-10-13)
PROC: 30233R1 Transfusion of Nonautologous Platelets into Peripheral Vein, Percutaneous Approach (ICD-10-PCS; principal; 2018-10-15)
DX: D64.9 Anemia, unspecified (principal); D69.6 Thrombocytopenia, unspecified; G20 Parkinson's disease; F29 Unspecified psychosis not due to a substance or known physiological condition; I10 Essential (primary) hypertension; E11.9 Type 2 diabetes mellitus without complications; J44.9 Chronic obstructive pulmonary disease, unspecified; M19.90 Unspecified osteoarthritis, unspecified site; D75.9 Disease of blood and blood-forming organs, unspecified; F02.80 Dementia in other diseases classified elsewhere, unspecified severity, without behavioral disturbance, psychotic disturbance, mood disturbance, and anxiety
CPT/HCPCS: 36415-UA; 71045-TC; 76700-TC; 80053-TC; 82270-TC; 82607-90; 82728-90; 82746-90; 83540-90; 83550-90; 84443-TC; 85007-TC; 85025-TC; 86850-TC; 86900-TC; 86901-TC; 86922-TC; J7030; J7040; P9016; P9035; Z7610